=== PATIENT | male | born 1960 | race Caucasian/White ===

== ENCOUNTER → 2016-05-25 | Outpatient (REF) | payer BC ==
[2016-05-25 12:48] LABS: PERCENT SATURATION 24.9 % (19.7-37.4)
== END ==
LOC: M LABDRAW1 11:38
PROVIDERS: ATTEND Orthopaedic Surgery
DX: Z01.818 Encounter for other preprocedural examination (principal); M17.12 Unilateral primary osteoarthritis, left knee

== ENCOUNTER → 2016-05-31 | Outpatient (REF) | payer BC ==
[2016-05-31 11:55] LABS: BASO % 0.9 % (0.0-1.0); EOS # 0.2 K/mm3 (0.0-0.50); EOS % 3.1 % (0.0-3.0); LARGE UNSTAINED CELL # 0.2 K/mm3 (0.0-0.4); LARGE UNSTAINED CELL % 2.7 % (0.0-4.0); LYMPH # 2.5 K/mm3 (1.5-4.5); LYMPH % 39.3 % (24.0-44.0); MEAN CORPUSCULAR HEMOGLOBIN 29.5 pg (27.0-33.0); MEAN CORPUSCULAR VOLUME 89.3 fl (80.0-96.0); MONO # 0.4 K/mm3 (0.0-0.8); MONO % 6.4 % (0.0-5.0); NEUTROPHILS % 47.6 % (36.0-66.0); PLATELET COUNT, AUTOMATED 287 k/mm3 (150-450); RED CELL DISTRIBUTION WIDTH 12.8 % (11.5-14.5); WHITE BLOOD COUNT 6.2 K/mm3 (4.0-10.0)
[2016-05-31 12:02] LABS: INR 0.87
[2016-05-31 12:11] LABS: ALBUMIN 3.7 GM/DL (3.2-5.2); ALBUMIN/GLOBULIN RATIO 1.42 (1.00-1.93); ALKALINE PHOSPHATASE 79 U/L (45-117); ALT/SGPT 23 U/L (12-78); ANION GAP 8 MEQ/L (8-16); AST/SGOT 12 U/L (15-37); BILIRUBIN,TOTAL 0.3 MG/DL (0.2-1.0); BLOOD UREA NITROGEN 10 MG/DL (7-18); CALCIUM LEVEL 8.7 MG/DL (8.5-10.1); CARBON DIOXIDE LEVEL 27 MEQ/L (21-32); CHLORIDE LEVEL 106 MEQ/L (98-107); GLOMERULAR FILTRATION RATE > 60.0 (>56); GLUCOSE, FASTING 91 MG/DL (70-105); POTASSIUM SERUM 4.1 MEQ/L (3.5-5.1); SODIUM LEVEL 141 MEQ/L (136-145); TOTAL PROTEIN 6.3 GM/DL (6.4-8.2)
== END ==
LOC: M LABDRAW1 11:37
PROVIDERS: ATTEND Family Medicine
DX: Z01.818 Encounter for other preprocedural examination (principal); M25.562 Pain in left knee

== ENCOUNTER 2017-01-18 12:05 | Outpatient (CLI) | payer BC ==
[~2017-01-18] VITALS: Ht 177.8 cm; Wt 85.5 kg
[~2017-01-18 12:05] MED LIST: PARO20TA4 PO
[2017-01-18] MEDS ORDERED: NS 1,000 ML IV ONE (12:15)
[2017-01-18] MEDS ORDERED: PROPOFOL 200 MG/20 ML VIAL As Ordered ONE (13:28)
[2017-01-18] MEDS ORDERED: LIDOCAINE 2% INJ 100 MG/5 ML SDV (FOR ANES.) As Ordered ONE (13:28)
--- NOTE | 2017-01-18 13:48 | ROOR ---
Patient Name: Cristino Duke Procedure Date: 01/18/2017 1:19 PM Date of : 1960 Age: 56 Room: [facility] Gender: Male Note Status: Finalized Procedure: Total Colonoscopy to Cecum + Biopsy Polypectomy + Carbon Spot Marking Indications: High risk colon cancer surveillance: Personal history of colonic polyps, Last colonoscopy: 2011 Providers: Sunil Chatman MD Referring MD: Katelin Mckeon MD Requesting Provider: Medicines: Monitored Anesthesia Care Complications: No immediate complications. Procedure: Pre-Anesthesia Assessment: - The heart rate, respiratory rate, oxygen saturations, blood pressure, adequacy of pulmonary ventilation, and response to care were monitored throughout the procedure. The Colonoscope was introduced through the anus and advanced to the cecum, identified by appendiceal orifice and ileocecal valve. The colonoscopy was performed without difficulty. The patient tolerated the procedure well. The quality of the bowel preparation was excellent. Findings: The perianal and digital rectal examinations were normal. Non-bleeding internal hemorrhoids were found during retroflexion. The hemorrhoids were small and Grade I (internal hemorrhoids that do not prolapse). Multiple small and large-mouthed diverticula were found in the recto-sigmoid colon, sigmoid colon and descending colon. A medium polyp was found at 70 cm proximal to the anus. The polyp was sessile. The polyp was removed with a jumbo cold forceps. Resection and retrieval were complete. Area was successfully injected with Spot (carbon black) for tattooing. The exam was otherwise without abnormality on direct and retroflexion views. Impression: - Non-bleeding internal hemorrhoids. - Diverticulosis in the recto-sigmoid colon, in the sigmoid colon and in the descending colon. - One medium polyp at 70 cm proximal to the anus, removed with a jumbo cold forceps. Resected and retrieved. Injected. - The examination was otherwise normal on direct and retroflexion views. - The exam was otherwise normal to the cecum. Recommendation: - Patient has a contact number available for emergencies. The signs and symptoms of potential delayed complications were discussed with the patient. Return to normal activities tomorrow. Written discharge instructions were provided to the patient. - High fiber diet. - Discharge patient to home. - Continue present medications. - Await pathology results. - Telephone GI clinic for pathology results in 1 week. - Repeat colonoscopy for surveillance based on pathology results. - Return to referring physician. - The findings and recommendations were discussed with the patient's family. Sunil Chatman MD Sunil Chatman MD 01/18/2017 1:48:08 PM This report has been signed electronically. Number of Addenda: 0 Note Initiated On: 01/18/2017 1:19 PM Estimated Blood Loss: Estimated blood loss: none.
[2017-01-18 14:10] VITALS: BP 137/86
== END 2017-01-18 14:20 | disposition home or self-care (01) ==
LOC: M OPP 12:05
PROVIDERS: ATTEND Internal Medicine Gastroenterology
DX: Z12.11 Encounter for screening for malignant neoplasm of colon (principal); Z86.010 Personal history of colon polyps; D12.4 Benign neoplasm of descending colon; K64.0 First degree hemorrhoids; K57.30 Diverticulosis of large intestine without perforation or abscess without bleeding; M19.90 Unspecified osteoarthritis, unspecified site; F32.9 Major depressive disorder, single episode, unspecified; R06.83 Snoring; Z96.652 Presence of left artificial knee joint; F12.20 Cannabis dependence, uncomplicated; Z79.899 Other long term (current) drug therapy

== ENCOUNTER → 2017-07-24 | Outpatient (REF) | payer BC ==
[2017-07-24 13:26] LABS: BASO # 0.1 10^3/uL (0.0-0.2); BASO % 0.9 % (0.0-1.0); EOS # 0.2 10^3/uL (0.0-0.50); EOS % 2.9 % (0.0-3.0); HEMATOCRIT 41.9 % (42.0-52.0); HEMOGLOBIN 13.6 g/dl (14.0-18.0); IMMATURE GRANULOCYTE % 0.6 % (0-3.0); LYMPH # 2.5 10^3/uL (1.5-4.5); LYMPH % 36.3 % (24.0-44.0); MEAN CORPUSCULAR HGB CONC 32.5 g/dl (32.0-36.5); MEAN CORPUSCULAR VOLUME 89.3 fl (80.0-96.0); MONO # 0.6 10^3/uL (0.0-0.8); MONO % 8.6 % (0.0-5.0); NEUTROPHILS # 3.5 10^3/uL (1.8-7.7); NEUTROPHILS % 50.7 % (36.0-66.0); PLATELET COUNT, AUTOMATED 305 10^3/uL (150-450); RED BLOOD COUNT 4.69 10^6/uL (4.30-6.10); RED CELL DISTRIBUTION WIDTH 13.9 % (11.5-14.5); WHITE BLOOD COUNT 6.8 10^3/uL (4.0-10.0)
[2017-07-24 13:35] LABS: ALBUMIN 3.7 GM/DL (3.2-5.2); ALBUMIN/GLOBULIN RATIO 1.32 (1.00-1.93); ALKALINE PHOSPHATASE 82 U/L (45-117); ALT/SGPT 34 U/L (12-78); ANION GAP 6 MEQ/L (8-16); AST/SGOT 23 U/L (7-37); BILIRUBIN,TOTAL 0.2 MG/DL (0.2-1.0); BLOOD UREA NITROGEN 13 MG/DL (7-18); CALCIUM LEVEL 8.5 MG/DL (8.5-10.1); CARBON DIOXIDE LEVEL 29 MEQ/L (21-32); CHLORIDE LEVEL 107 MEQ/L (98-107); CHOLESTEROL LEVEL 199 MG/DL (<200); CHOLESTEROL RISK RATIO 3.491 (<5); CREATININE FOR GFR 0.72 MG/DL (0.70-1.30); GLOMERULAR FILTRATION RATE > 60.0 (>56); GLUCOSE, FASTING 89 MG/DL (70-100); HDL CHOLESTEROL 57 MG/DL (>40); NON-HDL-C 142 MG/DL; POTASSIUM SERUM 4.7 MEQ/L (3.5-5.1); SODIUM LEVEL 142 MEQ/L (136-145); TOTAL PROTEIN 6.5 GM/DL (6.4-8.2); TRIGLYCERIDES LEVEL 105 MG/DL (<150)
== END ==
LOC: M LABDRAW1 08:09
DX: E78.2 Mixed hyperlipidemia (principal)
CPT/HCPCS: 80053

== ENCOUNTER 2018-05-28 10:28 | Day surgery (SDC) | payer BC ==
[~2018-05-28] VITALS: Ht 177.8 cm; Wt 88.8 kg
[2018-05-28] MEDS ORDERED: NS 1,000 ML IV ONE (10:45)
[2018-05-28] MEDS ORDERED: LIDOCAINE 2% INJ 100 MG/5 ML SDV (FOR ANES.) As Ordered ONE (11:07)
[2018-05-28] MEDS ORDERED: PROPOFOL 200 MG/20 ML VIAL As Ordered ONE ×3 (11:49→12:29)
--- NOTE | 2018-05-28 12:48 | ROOR ---
Patient Name: Cristino Duke Procedure Date: 05/28/2018 12:02 PM Date of : 1960 Age: 57 Room: [facility] Gender: Male Note Status: Finalized Procedure: Total Colonoscopy + Hot Snare Polypectomy + Biopsy Polypectomy Indications: High risk colon cancer surveillance: Personal history of colonic polyps Providers: Sunil Chatman MD Referring MD: Katelin Mckeon MD Requesting Provider: Medicines: Monitored Anesthesia Care Complications: No immediate complications. Procedure: Pre-Anesthesia Assessment: - The heart rate, respiratory rate, oxygen saturations, blood pressure, adequacy of pulmonary ventilation, and response to care were monitored throughout the procedure. The Colonoscope was introduced through the anus and advanced to the cecum, identified by appendiceal orifice and ileocecal valve. The colonoscopy was performed without difficulty. The patient tolerated the procedure well. The quality of the bowel preparation was excellent. Findings: The perianal and digital rectal examinations were normal. Non-bleeding internal hemorrhoids were found during retroflexion. The hemorrhoids were small and Grade I (internal hemorrhoids that do not prolapse). A small polyp was found in the anus. The polyp was pedunculated. The polyp was removed with a hot snare. Resection and retrieval were complete. A large polyp was found at 70 cm proximal to the anus. The polyp was sessile. The polyp was removed with a jumbo cold forceps. Resection and retrieval were complete. The exam was otherwise without abnormality on direct and retroflexion views. Impression: - Non-bleeding internal hemorrhoids. - One small polyp at the anus, removed with a hot snare. Resected and retrieved. - One large polyp at 70 cm proximal to the anus, removed with a jumbo cold forceps. Resected and retrieved. - The examination was otherwise normal on direct and retroflexion views. - The exam was otherwise normal to the cecum. Recommendation: - Patient has a contact number available for emergencies. The signs and symptoms of potential delayed complications were discussed with the patient. Return to normal activities tomorrow. Written discharge instructions were provided to the patient. - High fiber diet. - Discharge patient to home. - Continue present medications. - Await pathology results. - Telephone GI clinic for pathology results in 1 week. - Repeat colonoscopy for surveillance based on pathology results. - Return to referring physician. - The findings and recommendations were discussed with the patient's family. Sunil Chatman MD Sunil Chatman MD 05/28/2018 12:48:07 PM This report has been signed electronically. Number of Addenda: 0 Note Initiated On: 05/28/2018 12:02 PM Estimated Blood Loss: Estimated blood loss: none.
[2018-05-28 13:05] VITALS: BP 147/79
[2018-05-28] MEDS ORDERED: ESMOLOL INJ 100MG/10ML VIAL As Ordered ONE (13:25)
== END 2018-05-28 13:16 | disposition home or self-care (01) ==
LOC: M OPP 10:28
PROVIDERS: ATTEND Internal Medicine Gastroenterology
DX: Z09 Encounter for follow-up examination after completed treatment for conditions other than malignant neoplasm (principal); Z86.010 Personal history of colon polyps; K64.0 First degree hemorrhoids; K62.0 Anal polyp

== ENCOUNTER → 2019-02-21 | Outpatient (REF) | payer BC ==
[2019-02-21 13:38] LABS: BASO # 0.1 10^3/uL (0.0-0.2); BASO % 0.9 % (0.0-1.0); EOS # 0.2 10^3/uL (0.0-0.5); EOS % 2.8 % (0.0-3.0); HEMATOCRIT 42.7 % (42.0-52.0); HEMOGLOBIN 14.1 g/dl (13.5-17.5); LYMPH # 2.1 10^3/uL (1.5-5.0); LYMPH % 33.4 % (24.0-44.0); MEAN CORPUSCULAR HEMOGLOBIN 30.3 pg (27.0-33.0); MEAN CORPUSCULAR VOLUME 91.8 fl (80.0-96.0); MONO # 0.6 10^3/uL (0.0-0.8); MONO % 9.2 % (0.0-5.0); NEUTROPHILS # 3.4 10^3/uL (1.5-8.5); NEUTROPHILS % 53.2 % (36.0-66.0); PLATELET COUNT, AUTOMATED 290 10^3/uL (150-450); RED BLOOD COUNT 4.65 10^6/uL (4.30-6.10); WHITE BLOOD COUNT 6.4 10^3/uL (4.0-10.0)
[2019-02-21 13:41] LABS: ALBUMIN 3.7 GM/DL (3.2-5.2); ALT/SGPT 30 U/L (12-78); BILIRUBIN,TOTAL 0.4 MG/DL (0.2-1.0); BLOOD UREA NITROGEN 10 MG/DL (7-18); CALCIUM LEVEL 8.6 MG/DL (8.8-10.2); CARBON DIOXIDE LEVEL 26 MEQ/L (21-32); CHLORIDE LEVEL 106 MEQ/L (98-107); CHOLESTEROL LEVEL 170 MG/DL (<200); CHOLESTEROL RISK RATIO 3.207 (<5); CREATININE FOR GFR 0.73 MG/DL (0.70-1.30); GLOMERULAR FILTRATION RATE > 60.0 (>49); GLUCOSE, FASTING 90 MG/DL (70-100); HDL CHOLESTEROL 53 MG/DL (>40); LDL CHOLESTEROL 91 MG/DL (<100); NON-HDL-C 117 MG/DL; POTASSIUM SERUM 4.6 MEQ/L (3.5-5.1); SODIUM LEVEL 137 MEQ/L (136-145); TOTAL PROTEIN 6.4 GM/DL (6.4-8.2); TRIGLYCERIDES LEVEL 130 MG/DL (<150)
== END ==
LOC: M LABDRAW1 12:56
PROVIDERS: ATTEND Family Medicine
DX: Z00.00 Encounter for general adult medical examination without abnormal findings (principal)

== ENCOUNTER → 2020-11-09 | Outpatient (CLI) | payer BC ==
--- NOTE | 2020-11-09 15:58 | REP ---
INDICATION: PAIN COMPARISON: None. TECHNIQUE: Internal rotation, external rotation, and Y view. FINDINGS: Mild degenerative changes at the acromioclavicular joint with cortical irregularity and very small amount of chondrocalcinosis. The subacromial space is normal. The humeral head is normal. Subtle sclerotic changes and possible small broad-based osteophyte forming along the inferior margin of the glenoid suggested. No acute fracture or dislocation. IMPRESSION: Mild degenerative changes suggested. <Electronically signed by Julio Diaz > 11/09/20 [id number]
--- NOTE | 2020-11-09 16:05 | REP ---
INDICATION: PAIN COMPARISON: None. TECHNIQUE: AP, lateral, flexion/extension, bilateral oblique, and open-mouth views. FINDINGS: Alignment and lordosis is maintained. There is no evidence for acute fracture / compression injury or subluxation. Endplate sclerosis with disc space narrowing and marginal osteophyte formation at C5-6 and to a lesser extent C4-5. Remainder of the examination is essentially age-appropriate. IMPRESSION: Moderate focal degenerative changes at C5-6 and C4-5. <Electronically signed by Julio Diaz > 11/09/20 [id number]
== END ==
LOC: M WUC 15:27
PROVIDERS: ATTEND Physician Assistant
DX: M54.12 Radiculopathy, cervical region (principal); M25.512 Pain in left shoulder; M50.322 Other cervical disc degeneration at C5-C6 level; M50.321 Other cervical disc degeneration at C4-C5 level

== ENCOUNTER → 2021-02-09 | Outpatient (CLI) | payer BC ==
[2021-02-09 17:59] LABS: APPEARANCE, URINE CLEAR (CLEAR); BACTERIA, URINE AUTO NEGATIVE (NEGATIVE); BILIRUBIN, URINE AUTO NEGATIVE (NEGATIVE); BLOOD, URINE BLOOD 1+ (NEGATIVE); COLOR, URINE YELLOW (YELLOW); GLUCOSE, URINE (UA) AUTO NEGATIVE (NEGATIVE); KETONE, URINE AUTO NEGATIVE (NEGATIVE); LEUKOCYTE ESTERASE, URINE AUTO NEGATIVE (NEGATIVE); MUCUS, URINE SMALL (NEGATIVE); NITRITE, URINE AUTO NEGATIVE (NEGATIVE); PROTEIN, URINE AUTO NEGATIVE (NEGATIVE); RBC, URINE AUTO 0 /HPF (0-3); SPECIFIC GRAVITY URINE AUTO 1.023 (1.002-1.035); SQUAMOUS EPITHELIAL CELL UR AU 0 /HPF (0-6); UROBILINOGEN, URINE AUTO 0.2 mg/dL (0.0-2.0); WBC, URINE AUTO 0 /HPF (0-3)
[2021-02-09 18:11] LABS: BASO # 0.1 10^3/uL (0.0-0.2); BASO % 0.5 % (0.0-1.0); EOS # 0.1 10^3/uL (0.0-0.5); EOS % 1.4 % (0.0-3.0); HEMATOCRIT 39.8 % (42.0-52.0); HEMOGLOBIN 13.2 g/dl (13.5-17.5); LYMPH # 3.3 10^3/uL (1.5-5.0); MEAN CORPUSCULAR HEMOGLOBIN 29.7 pg (27.0-33.0); MEAN CORPUSCULAR HGB CONC 33.2 g/dl (32.0-36.5); MEAN CORPUSCULAR VOLUME 89.6 fl (80.0-96.0); MONO # 0.9 10^3/uL (0.0-0.8); MONO % 8.7 % (2.0-8.0); NEUTROPHILS # 5.4 10^3/uL (1.5-8.5); NEUTROPHILS % 55.1 % (36.0-66.0); PLATELET COUNT, AUTOMATED 359 10^3/uL (150-450); RED BLOOD COUNT 4.44 10^6/uL (4.30-6.10); WHITE BLOOD COUNT 9.8 10^3/uL (4.0-10.0)
[2021-02-09 20:11] LABS: ALBUMIN 3.9 GM/DL (3.2-5.2); ALT/SGPT 20 U/L (12-78); BILIRUBIN,TOTAL 0.3 MG/DL (0.2-1.0); BLOOD UREA NITROGEN 12 MG/DL (7-18); CALCIUM LEVEL 9.8 MG/DL (8.8-10.2); CARBON DIOXIDE LEVEL 29 MEQ/L (21-32); CHLORIDE LEVEL 106 MEQ/L (98-107); CREATININE FOR GFR 0.79 MG/DL (0.70-1.30); GLOMERULAR FILTRATION RATE > 60.0 (>49); GLUCOSE, FASTING 82 MG/DL (70-100); POTASSIUM SERUM 4.2 MEQ/L (3.5-5.1); SODIUM LEVEL 139 MEQ/L (136-145); TOTAL PROTEIN 6.8 GM/DL (6.4-8.2)
== END ==
LOC: M PLALAB 14:21
DX: Z78.9 Other specified health status (principal)

== ENCOUNTER → 2021-06-03 | Outpatient (REF) | payer BC ==
[2021-06-03 18:11] LABS: SOURCE, BODY FLUID LFT ELBOW; SYNOVIAL FLUID COLOR RED (COLORLESS)
[2021-06-03 18:12] LABS: SOURCE, BODY FLUID GLUCOSE LFT ELBOW
[2021-06-03 18:21] LABS: CRYSTALS, BODY FLUID NONE SEEN (NONE SEEN); SOURCE, BODY FLUID CRYSTALS LFT ELBOW
== END ==
LOC: M LAB REF 17:06
PROVIDERS: ATTEND Physician Assistant
DX: M25.522 Pain in left elbow (principal)

== ENCOUNTER → 2021-06-18 | Outpatient (CLI) | payer BC ==
[2021-06-18 13:49] LABS: BLOOD UREA NITROGEN 12 MG/DL (7-18); CREATININE FOR GFR 0.73 MG/DL (0.70-1.30); GLOMERULAR FILTRATION RATE > 60.0 (>49)
== END ==
LOC: M PLALAB 11:00
PROVIDERS: ATTEND Student in an Organized Health Care Education/Training Program
DX: I77.74 Dissection of vertebral artery (principal); I63.411 Cerebral infarction due to embolism of right middle cerebral artery; I63.89 Other cerebral infarction

== ENCOUNTER 2021-06-21 19:27 | Inpatient (IN) | payer BC ==
[~2021-06-21] VITALS: Ht 172.7 cm; Wt 82.4 kg
[2021-06-21] MEDS ORDERED: ETOMIDATE INJ 20MG/10ML VIAL IV ONE (19:50)
[2021-06-21] MEDS ORDERED: ROCURONIUM BROMIDE 50 MG/5 ML VIAL IV ONE (19:50)
[2021-06-21 19:59] LABS: HEMATOCRIT 46.3 % (42.0-52.0); HEMOGLOBIN 14.3 g/dl (13.5-17.5); MEAN CORPUSCULAR HEMOGLOBIN 29.5 pg (27.0-33.0); MEAN CORPUSCULAR HGB CONC 30.9 g/dl (32.0-36.5); MEAN CORPUSCULAR VOLUME 95.5 fl (80.0-96.0); PLATELET COUNT, AUTOMATED 434 10^3/uL (150-450); RED BLOOD COUNT 4.85 10^6/uL (4.30-6.10)
[2021-06-21] MEDS ORDERED: levETIRAcetam INJection 1,000 MG in D5W 100 ML IV ONE (20:00)
[2021-06-21] MEDS ORDERED: levETIRAcetam 500 MG/5 ML VIAL (KEPPRA IV)(J1953) As Ordered ONE (20:00)
[2021-06-21] MEDS ORDERED: NS 1,000 ML IV SCH (20:00)
[2021-06-21] MEDS ORDERED: cefTRIAXone SOD 2 GM in D5W MINI-BAG PLUS 50 ML IV ONE (20:00)
[2021-06-21] MEDS ORDERED: propofoL 1,000 MG in IV 1 EA IV SCH (20:00)
[2021-06-21 20:01] LABS: WHITE BLOOD COUNT 30.7 10^3/uL (4.0-10.0)
[2021-06-21 20:22] LABS: ABG BASE EXCESS -12.7 (-2.0-2.0); ABG HCO3 16.1 MEQ/L (22.0-26.0); ABG O2 SATURATION 99.4 % (95.0-99.0); ABG PARTIAL PRESSURE CO2 47.8 mmHg (35.0-45.0); ABG PARTIAL PRESSURE O2 293.7 mmHg (75.0-100.0); ABG STANDARD HCO3 14.8 MEQ/L (22.0-26.0); ABG TOTAL CO2 17.6 MEQ/L (23.0-31.0)
[2021-06-21 20:24] LABS: ABG pH (ARTERIAL) 7.146 UNITS (7.350-7.450)
[2021-06-21 20:26] LABS: CK-MB VALUE MASS 1.8 NG/ML (<3.6); MB/CK RELATIVE INDEX 1.38 (< OR =4)
[2021-06-21 20:34] LABS: OSMOLALITY SERUM 306 MOSM/KG (280-301)
[2021-06-21 20:35] LABS: ACETAMINOPHEN LEVEL < 2.0 UG/ML (10.0-30.0); ALBUMIN 4.2 GM/DL (3.2-5.2); ALT/SGPT 17 U/L (12-78); BILIRUBIN,DIRECT < 0.1 MG/DL (0.0-0.2); BILIRUBIN,TOTAL 0.2 MG/DL (0.2-1.0); BLOOD UREA NITROGEN 22 MG/DL (7-18); CALCIUM LEVEL 9.1 MG/DL (8.8-10.2); CARBON DIOXIDE LEVEL 16 MEQ/L (21-32); CHLORIDE LEVEL 101 MEQ/L (98-107); CREATININE FOR GFR 1.51 MG/DL (0.70-1.30); ETHYL ALCOHOL (ETHANOL) < 0.003 % (0.000-0.010); GLOMERULAR FILTRATION RATE 50.1 (>49); GLUCOSE, FASTING 207 MG/DL (70-100); POTASSIUM SERUM 3.9 MEQ/L (3.5-5.1); SALICYLATE LEVEL 3.6 MG/DL (5.0-30.0); SODIUM LEVEL 139 MEQ/L (136-145); TOTAL PROTEIN 7.6 GM/DL (6.4-8.2)
[2021-06-21 20:48] LABS: ATYPICAL LYMPH 2 % (0-5); BASOPHILS 1 % (0-1); EOSINOPHILS 2 % (0-3); LYMPHOCYTES 35 % (16-44); METAMYELOCYTES 2 % (0-0); MONOCYTES 10 % (0-5); NEUTROPHILS 47 % (28-66)
[2021-06-21 20:49] LABS: PLATELET CLUMPS SMALL AMT
[2021-06-21 20:50] LABS: HYPOCHROMASIA 1+
[2021-06-21 20:51] LABS: PLATELET ESTIMATE INCREASED (NORMAL)
[2021-06-21] MEDS ORDERED: NS 1,400 ML in IV 1 EA IV ONE (20:55)
[2021-06-21] MEDS ORDERED: ISOVUE-370 76% 100ML VIAL As Ordered ONE (21:23)
[2021-06-21 21:37] LABS: AMPHETAMINES LEVEL URINE NEGATIVE (NEGATIVE); BARBITURATES URINE NEGATIVE (NEGATIVE); BENZODIAZEPINES URINE POSITIVE (NEGATIVE); CANNABINOIDS URINE POSITIVE (NEGATIVE); COCAINE METABOLITE URINE NEGATIVE (NEGATIVE); METHADONE URINE NEGATIVE (NEGATIVE); OPIATES URINE NEGATIVE (NEGATIVE); PHENCYCLIDINE URINE NEGATIVE (NEGATIVE)
[2021-06-21] MEDS ORDERED: NS 1,000 ML IV ONE (22:05)
[2021-06-21] MEDS: propofoL 1,000 MG in IV 1 EA IV SCH (22:10)
[2021-06-21 22:21] LABS: ABG BASE EXCESS -2.5 (-2.0-2.0); ABG HCO3 24.6 MEQ/L (22.0-26.0); ABG O2 SATURATION 99.4 % (95.0-99.0); ABG PARTIAL PRESSURE CO2 52.5 mmHg (35.0-45.0); ABG PARTIAL PRESSURE O2 310.8 mmHg (75.0-100.0); ABG STANDARD HCO3 22.4 MEQ/L (22.0-26.0); ABG TOTAL CO2 26.2 MEQ/L (23.0-31.0); ABG pH (ARTERIAL) 7.289 UNITS (7.350-7.450)
[2021-06-21] MEDS: MIDAZOLAM INJ 2MG/2ML VIAL (J2250 PER 1MG) IV PRN ×3 (22:28→23:18)
[2021-06-21] MEDS ORDERED: LORazepam 2 MG/ML VIAL IV PRN (23:35)
[2021-06-21] MEDS ORDERED: DEXTROSE 50% 50 ML SYRINGE IV STA (23:57)
[2021-06-22] VITALS (28 sets, daily range): BP systolic 116–158; BP diastolic 62–92
[2021-06-22] MEDS: KCL 20MEQ IN D5/0.45NS 1000ML 1,000 ML IV SCH ×5 (00:19→22:00)
[2021-06-22] MEDS: PIPERACILLIN/TAZOBACTAM SOD 3.375 GM in D5W MINI-BAG PLUS 50 ML IV SCH ×4 (00:42→18:09)
[2021-06-22] MEDS: propofoL 1,000 MG in IV 1 EA IV SCH ×9 (01:12→22:29)
[2021-06-22] MEDS: IPRATROPIUM 0.5MG/ALBUTEROL 2.5MG INH SOL UD 3ML (DUONEB) NEB SCH ×6 (04:32→20:34)
[2021-06-22 05:20] LABS: ABG BASE EXCESS -1.2 (-2.0-2.0); ABG HCO3 24.5 MEQ/L (22.0-26.0); ABG O2 SATURATION 98.9 % (95.0-99.0); ABG PARTIAL PRESSURE CO2 44.8 mmHg (35.0-45.0); ABG PARTIAL PRESSURE O2 156.2 mmHg (75.0-100.0); ABG STANDARD HCO3 23.5 MEQ/L (22.0-26.0); ABG TOTAL CO2 25.9 MEQ/L (23.0-31.0); ABG pH (ARTERIAL) 7.356 UNITS (7.350-7.450)
[2021-06-22] MEDS: HEPARIN SOD (PORCINE) 5000UNITS/ML 1ML VIAL/SYRINGE SC SCH ×3 (06:18→21:59)
[2021-06-22 06:36] LABS: BASO # 0.1 10^3/uL (0.0-0.2); BASO % 0.3 % (0.0-1.0); EOS % 0.2 % (0.0-3.0); HEMATOCRIT 40.7 % (42.0-52.0); HEMOGLOBIN 13.1 g/dl (13.5-17.5); LYMPH # 2.4 10^3/uL (1.5-5.0); MEAN CORPUSCULAR HEMOGLOBIN 29.2 pg (27.0-33.0); MEAN CORPUSCULAR HGB CONC 32.2 g/dl (32.0-36.5); MEAN CORPUSCULAR VOLUME 90.8 fl (80.0-96.0); NEUTROPHILS % 74.2 % (36.0-66.0); PLATELET COUNT, AUTOMATED 332 10^3/uL (150-450); RED BLOOD COUNT 4.48 10^6/uL (4.30-6.10); WHITE BLOOD COUNT 20.2 10^3/uL (4.0-10.0)
[2021-06-22 06:42] LABS: MONO # 2.4 10^3/uL (0.0-0.8)
[2021-06-22] MEDS ORDERED: AMLO1TAB24 PO (06:47)
[2021-06-22] MEDS ORDERED: BACL10TA2 PO (06:47)
[2021-06-22] MEDS ORDERED: METH4TAB8 PO (06:47)
[2021-06-22] MEDS ORDERED: CLOP75TA2 PO (06:47)
[2021-06-22] MEDS ORDERED: ASPI-263 PO (06:47)
[2021-06-22] MEDS ORDERED: ATOR40TA75 PO (06:47)
[2021-06-22] MEDS ORDERED: TELM1TAB33 PO (06:47)
[2021-06-22] MEDS ORDERED: HOME MED LIST COMPLETE! XX SCH (06:50)
[2021-06-22 07:05] LABS: ALBUMIN 3.3 GM/DL (3.2-5.2); ALT/SGPT 15 U/L (12-78); BILIRUBIN,TOTAL 0.3 MG/DL (0.2-1.0); BLOOD UREA NITROGEN 18 MG/DL (7-18); CALCIUM LEVEL 8.3 MG/DL (8.8-10.2); CARBON DIOXIDE LEVEL 27 MEQ/L (21-32); CHLORIDE LEVEL 105 MEQ/L (98-107); CHOLESTEROL LEVEL 145 MG/DL (< 200); CPK CREATINE PHOSPHOKINASE 200 U/L (39-308); CREATININE FOR GFR 1.05 MG/DL (0.70-1.30); GLOMERULAR FILTRATION RATE > 60.0 (>49); GLUCOSE, FASTING 135 MG/DL (70-100); LDH LACTATE DEHYDROGENASE 315 U/L (87-241); PHOSPHORUS LEVEL 5.3 MG/DL (2.5-4.9); POTASSIUM SERUM 3.6 MEQ/L (3.5-5.1); SODIUM LEVEL 139 MEQ/L (136-145); TOTAL PROTEIN 6.2 GM/DL (6.4-8.2); TRIGLYCERIDES LEVEL 91 MG/DL (<150)
[2021-06-22] MEDS: CHLORHEXIDINE GLUCONATE 0.12 % 15ML UDC (PERIDEX ORAL RINSE) MT SCH ×2 (07:52→20:31)
[2021-06-22] MEDS: PANTOPRAZOLE 40MG VIAL (C9113 PER 1) IV SCH (07:53)
[2021-06-22] MEDS ORDERED: levETIRAcetam INJection 500 MG in D5W MINI-BAG PLUS 100 ML IV SCH (08:00)
[2021-06-22] MEDS ORDERED: levETIRAcetam INJection 500 MG in D5W MINI-BAG PLUS 100 ML IV ONE (09:25)
[2021-06-22] MEDS: MIDAZOLAM INJ 2MG/2ML VIAL (J2250 PER 1MG) IV PRN ×2 (14:39)
[2021-06-22] MEDS: levETIRAcetam INJection 1,000 MG in D5W 100 ML IV SCH (20:42)
[2021-06-22] MEDS: MORPHINE 4 MG/ML 1ML VIAL/SYRINGE (J2270) IV PRN (22:24)
[2021-06-23] VITALS (21 sets, daily range): BP systolic 104–147; BP diastolic 64–87
[2021-06-23] MEDS: PIPERACILLIN/TAZOBACTAM SOD 3.375 GM in D5W MINI-BAG PLUS 50 ML IV SCH ×4 (00:05→18:29)
[2021-06-23] MEDS: MIDAZOLAM INJ 2MG/2ML VIAL (J2250 PER 1MG) IV PRN ×6 (00:05→19:32)
[2021-06-23] MEDS: IPRATROPIUM 0.5MG/ALBUTEROL 2.5MG INH SOL UD 3ML (DUONEB) NEB SCH ×6 (00:34→19:06)
[2021-06-23] MEDS: propofoL 1,000 MG in IV 1 EA IV SCH ×9 (01:01→23:06)
[2021-06-23] MEDS: MORPHINE 4 MG/ML 1ML VIAL/SYRINGE (J2270) IV PRN ×2 (03:03→19:44)
[2021-06-23 04:43] LABS: BASO # 0.1 10^3/uL (0.0-0.2); BASO % 0.4 % (0.0-1.0); EOS % 0.3 % (0.0-3.0); HEMOGLOBIN 12.6 g/dl (13.5-17.5); LYMPH # 2.3 10^3/uL (1.5-5.0); MEAN CORPUSCULAR HEMOGLOBIN 29.2 pg (27.0-33.0); MEAN CORPUSCULAR HGB CONC 32.3 g/dl (32.0-36.5); MEAN CORPUSCULAR VOLUME 90.3 fl (80.0-96.0); MONO % 12.7 % (2.0-8.0); NEUTROPHILS # 9.3 10^3/uL (1.5-8.5); NEUTROPHILS % 68.9 % (36.0-66.0); PLATELET COUNT, AUTOMATED 298 10^3/uL (150-450); RED BLOOD COUNT 4.32 10^6/uL (4.30-6.10); WHITE BLOOD COUNT 13.5 10^3/uL (4.0-10.0)
[2021-06-23 05:12] LABS: MONO # 1.7 10^3/uL (0.0-0.8)
[2021-06-23 05:15] LABS: ALBUMIN 2.9 GM/DL (3.2-5.2); ALT/SGPT 19 U/L (12-78); BILIRUBIN,TOTAL 0.3 MG/DL (0.2-1.0); BLOOD UREA NITROGEN 7 MG/DL (7-18); CALCIUM LEVEL 8.2 MG/DL (8.8-10.2); CARBON DIOXIDE LEVEL 26 MEQ/L (21-32); CHLORIDE LEVEL 108 MEQ/L (98-107); CHOLESTEROL LEVEL 144 MG/DL (< 200); CPK CREATINE PHOSPHOKINASE 111 U/L (39-308); CREATININE FOR GFR 0.79 MG/DL (0.70-1.30); GLOMERULAR FILTRATION RATE > 60.0 (>49); GLUCOSE, FASTING 165 MG/DL (70-100); LDH LACTATE DEHYDROGENASE 284 U/L (87-241); PHOSPHORUS LEVEL 3.3 MG/DL (2.5-4.9); POTASSIUM SERUM 3.7 MEQ/L (3.5-5.1); SODIUM LEVEL 140 MEQ/L (136-145); TOTAL PROTEIN 5.9 GM/DL (6.4-8.2); TRIGLYCERIDES LEVEL 124 MG/DL (<150)
[2021-06-23] MEDS: HEPARIN SOD (PORCINE) 5000UNITS/ML 1ML VIAL/SYRINGE SC SCH ×3 (05:38→22:17)
[2021-06-23] MEDS: KCL 20MEQ IN D5/0.45NS 1000ML 1,000 ML IV SCH ×3 (05:39→20:50)
[2021-06-23 05:53] LABS: ABG O2 SATURATION 98.1 % (95.0-99.0); ABG PARTIAL PRESSURE CO2 42.7 mmHg (35.0-45.0); ABG PARTIAL PRESSURE O2 103.4 mmHg (75.0-100.0); ABG STANDARD HCO3 25.4 MEQ/L (22.0-26.0); ABG TOTAL CO2 27.3 MEQ/L (23.0-31.0); ABG pH (ARTERIAL) 7.402 UNITS (7.350-7.450)
[2021-06-23] MEDS: PANTOPRAZOLE 40MG VIAL (C9113 PER 1) IV SCH (08:12)
[2021-06-23] MEDS: CHLORHEXIDINE GLUCONATE 0.12 % 15ML UDC (PERIDEX ORAL RINSE) MT SCH ×2 (08:12→20:02)
[2021-06-23] MEDS ORDERED: NS 500 ML IV ONE (09:00)
[2021-06-23] MEDS: levETIRAcetam INJection 1,000 MG in D5W 100 ML IV SCH ×2 (09:32→20:49)
[2021-06-23 10:17] LABS: ABG BASE EXCESS 0.8 (-2.0-2.0); ABG HCO3 25.3 MEQ/L (22.0-26.0); ABG O2 SATURATION 96.9 % (95.0-99.0); ABG PARTIAL PRESSURE O2 86.8 mmHg (75.0-100.0); ABG STANDARD HCO3 25.2 MEQ/L (22.0-26.0); ABG TOTAL CO2 26.5 MEQ/L (23.0-31.0); ABG pH (ARTERIAL) 7.419 UNITS (7.350-7.450)
[2021-06-24] VITALS (22 sets, daily range): BP systolic 92–145; BP diastolic 59–93
[2021-06-24] MEDS: PIPERACILLIN/TAZOBACTAM SOD 3.375 GM in D5W MINI-BAG PLUS 50 ML IV SCH ×5 (00:10→23:30)
[2021-06-24] MEDS: IPRATROPIUM 0.5MG/ALBUTEROL 2.5MG INH SOL UD 3ML (DUONEB) NEB SCH ×3 (00:27→07:53)
[2021-06-24] MEDS: MIDAZOLAM INJ 2MG/2ML VIAL (J2250 PER 1MG) IV PRN ×2 (00:53→07:37)
[2021-06-24] MEDS: MORPHINE 4 MG/ML 1ML VIAL/SYRINGE (J2270) IV PRN ×2 (01:30→07:45)
[2021-06-24] MEDS: propofoL 1,000 MG in IV 1 EA IV SCH ×3 (01:59→07:27)
[2021-06-24 04:49] LABS: BASO % 0.4 % (0.0-1.0); EOS # 0.1 10^3/uL (0.0-0.5); HEMATOCRIT 35.5 % (42.0-52.0); HEMOGLOBIN 11.3 g/dl (13.5-17.5); LYMPH # 2.4 10^3/uL (1.5-5.0); LYMPH % 21.9 % (24.0-44.0); MEAN CORPUSCULAR HEMOGLOBIN 29.4 pg (27.0-33.0); MEAN CORPUSCULAR HGB CONC 31.8 g/dl (32.0-36.5); MEAN CORPUSCULAR VOLUME 92.2 fl (80.0-96.0); MONO % 9.2 % (2.0-8.0); NEUTROPHILS # 7.3 10^3/uL (1.5-8.5); NEUTROPHILS % 66.9 % (36.0-66.0); PLATELET COUNT, AUTOMATED 270 10^3/uL (150-450); RED BLOOD COUNT 3.85 10^6/uL (4.30-6.10); WHITE BLOOD COUNT 10.9 10^3/uL (4.0-10.0)
[2021-06-24] MEDS: HEPARIN SOD (PORCINE) 5000UNITS/ML 1ML VIAL/SYRINGE SC SCH ×3 (05:02→22:16)
[2021-06-24 05:16] LABS: ALBUMIN 2.6 GM/DL (3.2-5.2); ALT/SGPT 29 U/L (12-78); BILIRUBIN,TOTAL 0.3 MG/DL (0.2-1.0); BLOOD UREA NITROGEN 8 MG/DL (7-18); CARBON DIOXIDE LEVEL 26 MEQ/L (21-32); CHLORIDE LEVEL 108 MEQ/L (98-107); CHOLESTEROL LEVEL 135 MG/DL (< 200); CPK CREATINE PHOSPHOKINASE 84 U/L (39-308); CREATININE FOR GFR 0.67 MG/DL (0.70-1.30); GLOMERULAR FILTRATION RATE > 60.0 (>49); GLUCOSE, FASTING 166 MG/DL (70-100); LDH LACTATE DEHYDROGENASE 219 U/L (87-241); PHOSPHORUS LEVEL 3.4 MG/DL (2.5-4.9); POTASSIUM SERUM 3.9 MEQ/L (3.5-5.1); SODIUM LEVEL 142 MEQ/L (136-145); TOTAL PROTEIN 5.6 GM/DL (6.4-8.2); TRIGLYCERIDES LEVEL 98 MG/DL (<150)
[2021-06-24 05:38] LABS: ABG BASE EXCESS 1.4 (-2.0-2.0); ABG HCO3 25.7 MEQ/L (22.0-26.0); ABG O2 SATURATION 95.7 % (95.0-99.0); ABG PARTIAL PRESSURE CO2 39.4 mmHg (35.0-45.0); ABG STANDARD HCO3 25.7 MEQ/L (22.0-26.0); ABG TOTAL CO2 26.9 MEQ/L (23.0-31.0); ABG pH (ARTERIAL) 7.432 UNITS (7.350-7.450)
[2021-06-24] MEDS: KCL 20MEQ IN D5/0.45NS 1000ML 1,000 ML IV SCH (06:05)
[2021-06-24] MEDS: PANTOPRAZOLE 40MG VIAL (C9113 PER 1) IV SCH (08:48)
[2021-06-24] MEDS: CHLORHEXIDINE GLUCONATE 0.12 % 15ML UDC (PERIDEX ORAL RINSE) MT SCH (08:48)
[2021-06-24] MEDS: levETIRAcetam INJection 1,000 MG in D5W 100 ML IV SCH ×2 (08:49→19:47)
[2021-06-24] MEDS: amLODIPine 5 MG TAB PO SCH (09:00)
[2021-06-24] MEDS ORDERED: MORPHINE 2 MG/ML 1ML VIAL (J2270) IV ONE (10:35)
[2021-06-24] MEDS ORDERED: ACETAMINOPHEN TAB 650MG DOSE (2X325MG) PO PRN (10:40)
[2021-06-24] MEDS ORDERED: BACLOFEN 10 MG TAB PO PRN (17:40)
[2021-06-24] MEDS: ATORVASTATIN 20 MG TAB PO SCH (20:38)
[2021-06-25] VITALS (15 sets, daily range): BP systolic 121–171; BP diastolic 71–96
[2021-06-25] MEDS: KCL 20MEQ IN D5/0.45NS 1000ML 1,000 ML IV SCH (02:59)
[2021-06-25 05:04] LABS: BASO # 0.1 10^3/uL (0.0-0.2); BASO % 0.6 % (0.0-1.0); EOS # 0.2 10^3/uL (0.0-0.5); EOS % 1.7 % (0.0-3.0); HEMATOCRIT 40.5 % (42.0-52.0); HEMOGLOBIN 13.2 g/dl (13.5-17.5); LYMPH # 2.4 10^3/uL (1.5-5.0); LYMPH % 21.5 % (24.0-44.0); MEAN CORPUSCULAR HEMOGLOBIN 29.7 pg (27.0-33.0); MEAN CORPUSCULAR HGB CONC 32.6 g/dl (32.0-36.5); MONO % 9.1 % (2.0-8.0); NEUTROPHILS # 7.5 10^3/uL (1.5-8.5); NEUTROPHILS % 66.5 % (36.0-66.0); PLATELET COUNT, AUTOMATED 277 10^3/uL (150-450); RED BLOOD COUNT 4.45 10^6/uL (4.30-6.10); WHITE BLOOD COUNT 11.3 10^3/uL (4.0-10.0)
[2021-06-25] MEDS: PIPERACILLIN/TAZOBACTAM SOD 3.375 GM in D5W MINI-BAG PLUS 50 ML IV SCH ×3 (05:13→17:42)
[2021-06-25] MEDS: HEPARIN SOD (PORCINE) 5000UNITS/ML 1ML VIAL/SYRINGE SC SCH ×3 (05:13→21:12)
[2021-06-25 05:44] LABS: ALBUMIN 3.1 GM/DL (3.2-5.2); ALT/SGPT 37 U/L (12-78); BILIRUBIN,TOTAL 0.7 MG/DL (0.2-1.0); BLOOD UREA NITROGEN 9 MG/DL (7-18); CALCIUM LEVEL 8.9 MG/DL (8.8-10.2); CARBON DIOXIDE LEVEL 25 MEQ/L (21-32); CHLORIDE LEVEL 106 MEQ/L (98-107); CHOLESTEROL LEVEL 176 MG/DL (< 200); CPK CREATINE PHOSPHOKINASE 1076 U/L (39-308); GLOMERULAR FILTRATION RATE > 60.0 (>49); GLUCOSE, FASTING 104 MG/DL (70-100); LDH LACTATE DEHYDROGENASE 286 U/L (87-241); PHOSPHORUS LEVEL 4.4 MG/DL (2.5-4.9); POTASSIUM SERUM 4.7 MEQ/L (3.5-5.1); SODIUM LEVEL 139 MEQ/L (136-145); TOTAL PROTEIN 6.4 GM/DL (6.4-8.2); TRIGLYCERIDES LEVEL 158 MG/DL (<150)
[2021-06-25] MEDS: levETIRAcetam INJection 1,000 MG in D5W 100 ML IV SCH ×2 (08:51→21:11)
[2021-06-25] MEDS: PANTOPRAZOLE 40MG VIAL (C9113 PER 1) IV SCH (08:51)
[2021-06-25] MEDS: ASPIRIN ENTERIC 325 MG TAB PO SCH ×2 (09:00→14:01)
[2021-06-25] MEDS: CLOPIDOGREL 75 MG TAB PO SCH ×2 (09:00→14:01)
[2021-06-25] MEDS: TELMISARTAN 20 MG TAB PO SCH ×2 (09:00→14:01)
[2021-06-25] MEDS: PARoxetine 20MG TABLET PO SCH ×2 (09:00→14:02)
[2021-06-25] MEDS: LR 1,000 ML IV SCH (10:18)
[2021-06-25] MEDS: amLODIPine 5 MG TAB PO SCH (18:41)
[2021-06-25] MEDS: ATORVASTATIN 20 MG TAB PO SCH (20:04)
[2021-06-26] MEDS: PIPERACILLIN/TAZOBACTAM SOD 3.375 GM in D5W MINI-BAG PLUS 50 ML IV SCH ×5 (00:40→23:47)
[2021-06-26 06:00] VITALS: BP 137/88
[2021-06-26] MEDS: HEPARIN SOD (PORCINE) 5000UNITS/ML 1ML VIAL/SYRINGE SC SCH ×3 (06:08→22:08)
[2021-06-26] MEDS: LR 1,000 ML IV SCH (06:08)
[2021-06-26 06:54] LABS: BASO # 0.1 10^3/uL (0.0-0.2); BASO % 0.5 % (0.0-1.0); EOS # 0.2 10^3/uL (0.0-0.5); EOS % 1.5 % (0.0-3.0); HEMATOCRIT 42.6 % (42.0-52.0); LYMPH # 1.6 10^3/uL (1.5-5.0); LYMPH % 16.3 % (24.0-44.0); MEAN CORPUSCULAR HEMOGLOBIN 29.2 pg (27.0-33.0); MEAN CORPUSCULAR HGB CONC 32.9 g/dl (32.0-36.5); MEAN CORPUSCULAR VOLUME 88.9 fl (80.0-96.0); MONO % 9.7 % (2.0-8.0); NEUTROPHILS % 71.3 % (36.0-66.0); PLATELET COUNT, AUTOMATED 314 10^3/uL (150-450); RED BLOOD COUNT 4.79 10^6/uL (4.30-6.10); WHITE BLOOD COUNT 9.8 10^3/uL (4.0-10.0)
[2021-06-26 07:33] LABS: ALBUMIN 3.2 GM/DL (3.2-5.2); ALT/SGPT 36 U/L (12-78); BLOOD UREA NITROGEN 18 MG/DL (7-18); CALCIUM LEVEL 9.2 MG/DL (8.8-10.2); CARBON DIOXIDE LEVEL 23 MEQ/L (21-32); CHLORIDE LEVEL 107 MEQ/L (98-107); CHOLESTEROL LEVEL 182 MG/DL (< 200); CPK CREATINE PHOSPHOKINASE 1685 U/L (39-308); CREATININE FOR GFR 0.67 MG/DL (0.70-1.30); GLOMERULAR FILTRATION RATE > 60.0 (>49); GLUCOSE, FASTING 114 MG/DL (70-100); LDH LACTATE DEHYDROGENASE 228 U/L (87-241); PHOSPHORUS LEVEL 3.2 MG/DL (2.5-4.9); POTASSIUM SERUM 4.1 MEQ/L (3.5-5.1); SODIUM LEVEL 138 MEQ/L (136-145); TOTAL PROTEIN 7.1 GM/DL (6.4-8.2); TRIGLYCERIDES LEVEL 200 MG/DL (<150)
[2021-06-26] MEDS: PANTOPRAZOLE 40MG VIAL (C9113 PER 1) IV SCH (08:24)
[2021-06-26] MEDS: levETIRAcetam INJection 1,000 MG in D5W 100 ML IV SCH ×2 (08:24→19:20)
[2021-06-26] MEDS: ASPIRIN ENTERIC 325 MG TAB PO SCH (08:26)
[2021-06-26] MEDS: PARoxetine 20MG TABLET PO SCH (08:26)
[2021-06-26] MEDS: CLOPIDOGREL 75 MG TAB PO SCH (08:26)
[2021-06-26] MEDS: TELMISARTAN 20 MG TAB PO SCH (08:27)
[2021-06-26 14:00] VITALS: BP 111/63
[2021-06-26 22:00] VITALS: BP 125/80
[2021-06-27] MEDS: LR 1,000 ML IV SCH (01:50)
[2021-06-27] MEDS: PIPERACILLIN/TAZOBACTAM SOD 3.375 GM in D5W MINI-BAG PLUS 50 ML IV SCH (05:39)
[2021-06-27] MEDS: HEPARIN SOD (PORCINE) 5000UNITS/ML 1ML VIAL/SYRINGE SC SCH ×3 (05:40→20:06)
[2021-06-27 05:45] LABS: HEMATOCRIT 43.2 % (42.0-52.0); HEMOGLOBIN 14.3 g/dl (13.5-17.5); MEAN CORPUSCULAR HEMOGLOBIN 29.4 pg (27.0-33.0); MEAN CORPUSCULAR HGB CONC 33.1 g/dl (32.0-36.5); MEAN CORPUSCULAR VOLUME 88.9 fl (80.0-96.0); PLATELET COUNT, AUTOMATED 291 10^3/uL (150-450); RED BLOOD COUNT 4.86 10^6/uL (4.30-6.10); WHITE BLOOD COUNT 8.2 10^3/uL (4.0-10.0)
[2021-06-27 06:00] VITALS: BP 124/74
[2021-06-27 06:08] LABS: BLOOD UREA NITROGEN 18 MG/DL (7-18); CARBON DIOXIDE LEVEL 25 MEQ/L (21-32); CHLORIDE LEVEL 106 MEQ/L (98-107); CREATININE FOR GFR 0.62 MG/DL (0.70-1.30); GLOMERULAR FILTRATION RATE > 60.0 (>49); GLUCOSE, FASTING 98 MG/DL (70-100); MAGNESIUM LEVEL 2.3 MG/DL (1.8-2.4); POTASSIUM SERUM 4.3 MEQ/L (3.5-5.1); SODIUM LEVEL 139 MEQ/L (136-145)
[2021-06-27] MEDS: levETIRAcetam INJection 1,000 MG in D5W 100 ML IV SCH (07:58)
[2021-06-27] MEDS: PARoxetine 20MG TABLET PO SCH (08:00)
[2021-06-27] MEDS: PANTOPRAZOLE 40MG VIAL (C9113 PER 1) IV SCH (08:00)
[2021-06-27] MEDS: CLOPIDOGREL 75 MG TAB PO SCH (08:01)
[2021-06-27] MEDS: TELMISARTAN 20 MG TAB PO SCH (08:01)
[2021-06-27] MEDS: ASPIRIN ENTERIC 325 MG TAB PO SCH (08:01)
[2021-06-27] MEDS: amLODIPine 5 MG TAB PO SCH (08:02)
[2021-06-27 14:00] VITALS: BP 141/82
[2021-06-27] MEDS: levETIRAcetam 250MG TABLET (KEPPRA) PO SCH (20:06)
[2021-06-27] MEDS: AUGMENTIN 875 MG TAB PO SCH (20:06)
[2021-06-27 22:00] VITALS: BP 134/82
[2021-06-28 04:03] LABS: HEMATOCRIT 42.3 % (42.0-52.0); MEAN CORPUSCULAR HEMOGLOBIN 29.5 pg (27.0-33.0); MEAN CORPUSCULAR HGB CONC 33.1 g/dl (32.0-36.5); MEAN CORPUSCULAR VOLUME 89.2 fl (80.0-96.0); PLATELET COUNT, AUTOMATED 318 10^3/uL (150-450); RED BLOOD COUNT 4.74 10^6/uL (4.30-6.10); WHITE BLOOD COUNT 9.6 10^3/uL (4.0-10.0)
[2021-06-28 04:35] LABS: BLOOD UREA NITROGEN 19 MG/DL (7-18); CALCIUM LEVEL 8.8 MG/DL (8.8-10.2); CARBON DIOXIDE LEVEL 24 MEQ/L (21-32); CHLORIDE LEVEL 107 MEQ/L (98-107); CREATININE FOR GFR 0.62 MG/DL (0.70-1.30); GLOMERULAR FILTRATION RATE > 60.0 (>49); GLUCOSE, FASTING 95 MG/DL (70-100); MAGNESIUM LEVEL 2.3 MG/DL (1.8-2.4); POTASSIUM SERUM 4.1 MEQ/L (3.5-5.1); SODIUM LEVEL 141 MEQ/L (136-145)
[2021-06-28] MEDS: HEPARIN SOD (PORCINE) 5000UNITS/ML 1ML VIAL/SYRINGE SC SCH (05:11)
[2021-06-28 06:00] VITALS: BP 131/81
[2021-06-28] MEDS ORDERED: KEPP1TAB PO (07:33)
[2021-06-28] MEDS ORDERED: AMOX875T2 PO (07:35)
[2021-06-28 08:50] VITALS: BP 131/81
[2021-06-28] MEDS: amLODIPine 5 MG TAB PO SCH (08:50)
[2021-06-28] MEDS: levETIRAcetam 250MG TABLET (KEPPRA) PO SCH (08:50)
[2021-06-28] MEDS: PARoxetine 20MG TABLET PO SCH (08:51)
[2021-06-28] MEDS: ASPIRIN ENTERIC 325 MG TAB PO SCH (08:51)
[2021-06-28] MEDS: AUGMENTIN 875 MG TAB PO SCH (08:51)
[2021-06-28] MEDS: CLOPIDOGREL 75 MG TAB PO SCH (08:52)
[2021-06-28] MEDS: TELMISARTAN 20 MG TAB PO SCH (08:52)
== END 2021-06-28 12:55 | disposition home health service (06) | DRG 53 ==
LOC: EDBD 19:27 → M ED 19:27 → M ED INP 22:07 → M PCU 23:05 → M ICU 06-22 17:50 → M MS5PR 06-25 15:29
PROVIDERS: ADMIT Internal Medicine Pulmonary Disease; ATTEND Family Medicine
PROC: 0BH17EZ Insertion of Endotracheal Airway into Trachea, Via Natural or Artificial Opening (ICD-10-PCS; principal; 2021-06-21)
PROC: 5A1955Z Respiratory Ventilation, Greater than 96 Consecutive Hours (ICD-10-PCS; 2021-06-21)
DX: G40.901 Epilepsy, unspecified, not intractable, with status epilepticus (principal); E87.2 Acidosis; J69.0 Pneumonitis due to inhalation of food and vomit; Z86.73 Personal history of transient ischemic attack (TIA), and cerebral infarction without residual deficits; I10 Essential (primary) hypertension; J96.90 Respiratory failure, unspecified, unspecified whether with hypoxia or hypercapnia; J98.11 Atelectasis; N28.1 Cyst of kidney, acquired; K76.89 Other specified diseases of liver; E78.5 Hyperlipidemia, unspecified; F32.A Depression, unspecified; I25.10 Atherosclerotic heart disease of native coronary artery without angina pectoris; Z95.5 Presence of coronary angioplasty implant and graft; Z20.822 Contact with and (suspected) exposure to COVID-19; M62.82 Rhabdomyolysis; Z79.899 Other long term (current) drug therapy

== ENCOUNTER → 2021-07-27 | Outpatient (CLI) | payer BC ==
[~2021-07-27] MED LIST changes: +AMLO1TAB24 PO; +AMOX875T2 PO; +ASPI-263 PO; +ATOR40TA75 PO; +BACL10TA2 PO; +CLOP75TA2 PO; +KEPP1TAB PO; +METH4TAB8 PO; +TELM1TAB33 PO
[2021-07-27 14:15] LABS: BLOOD UREA NITROGEN 10 MG/DL (7-18); CALCIUM LEVEL 8.9 MG/DL (8.8-10.2); CARBON DIOXIDE LEVEL 30 MEQ/L (21-32); CHLORIDE LEVEL 106 MEQ/L (98-107); CREATININE FOR GFR 0.72 MG/DL (0.70-1.30); GLOMERULAR FILTRATION RATE > 60.0 (>49); GLUCOSE, FASTING 88 MG/DL (70-100); POTASSIUM SERUM 4.9 MEQ/L (3.5-5.1); SODIUM LEVEL 138 MEQ/L (136-145)
[2021-07-27 14:16] LABS: ALBUMIN 3.6 GM/DL (3.2-5.2); ALT/SGPT 29 U/L (12-78); BILIRUBIN,TOTAL 0.3 MG/DL (0.2-1.0); CHOLESTEROL LEVEL 216 MG/DL (<200); CHOLESTEROL RISK RATIO 3.483 (<5); HDL CHOLESTEROL 62 MG/DL (>40); LDL CHOLESTEROL 129 MG/DL (<100); NON-HDL-C 154 MG/DL; TOTAL PROTEIN 6.4 GM/DL (6.4-8.2); TRIGLYCERIDES LEVEL 123 MG/DL (<150)
== END ==
LOC: M PLALAB 10:21
PROVIDERS: ATTEND Nurse Practitioner Family
DX: M62.82 Rhabdomyolysis (principal)

== ENCOUNTER → 2021-08-06 | Outpatient (CLI) | payer BC ==
[2021-08-06 11:01] LABS: BASO # 0.1 10^3/uL (0.0-0.2); BASO % 0.7 % (0.0-1.0); EOS # 0.2 10^3/uL (0.0-0.5); HEMATOCRIT 39.1 % (42.0-52.0); HEMOGLOBIN 12.9 g/dl (13.5-17.5); LYMPH # 2.6 10^3/uL (1.5-5.0); LYMPH % 34.9 % (24.0-44.0); MEAN CORPUSCULAR HEMOGLOBIN 29.9 pg (27.0-33.0); MEAN CORPUSCULAR VOLUME 90.7 fl (80.0-96.0); MONO # 0.7 10^3/uL (0.0-0.8); MONO % 9.3 % (2.0-8.0); NEUTROPHILS % 52.4 % (36.0-66.0); PLATELET COUNT, AUTOMATED 290 10^3/uL (150-450); RED BLOOD COUNT 4.31 10^6/uL (4.30-6.10); WHITE BLOOD COUNT 7.6 10^3/uL (4.0-10.0)
[2021-08-06 11:26] LABS: ALBUMIN 3.5 GM/DL (3.2-5.2); ALT/SGPT 19 U/L (12-78); BILIRUBIN,TOTAL 0.3 MG/DL (0.2-1.0); BLOOD UREA NITROGEN 14 MG/DL (7-18); CALCIUM LEVEL 8.8 MG/DL (8.8-10.2); CARBON DIOXIDE LEVEL 31 MEQ/L (21-32); CHLORIDE LEVEL 103 MEQ/L (98-107); CREATININE FOR GFR 0.76 MG/DL (0.70-1.30); GLOMERULAR FILTRATION RATE > 60.0 (>49); GLUCOSE, FASTING 100 MG/DL (70-100); POTASSIUM SERUM 4.7 MEQ/L (3.5-5.1); SODIUM LEVEL 137 MEQ/L (136-145); TOTAL PROTEIN 6.1 GM/DL (6.4-8.2); VALPROIC ACID (DEPAKOTE) 97.6 UG/ML (50.0-100.0)
== END ==
LOC: M LAB 07:55 → M PLALAB 07:55
PROVIDERS: ATTEND Psychiatry & Neurology Neurology
DX: R56.9 Unspecified convulsions (principal)

== ENCOUNTER → 2021-08-06 | Outpatient (CLI) | payer BC ==
[2021-08-06 11:22] LABS: BLOOD UREA NITROGEN 14 MG/DL (7-18); CREATININE FOR GFR 0.71 MG/DL (0.70-1.30); GLOMERULAR FILTRATION RATE > 60.0 (>49)
== END ==
LOC: M PLALAB 07:58
PROVIDERS: ATTEND Student in an Organized Health Care Education/Training Program
DX: I77.74 Dissection of vertebral artery (principal); I63.411 Cerebral infarction due to embolism of right middle cerebral artery; I63.89 Other cerebral infarction

== ENCOUNTER 2021-12-07 09:58 | Inpatient (IN) | payer BC ==
[~2021-12-07] VITALS: Ht 172.7 cm; Wt 79.0 kg
[2021-12-07 10:38] LABS: VENOUS BASE EXCESS -21.1 (-2.0-2.0); VENOUS HCO3 8.8 MEQ/L (23.0-27.0); VENOUS PARTIAL PRESSURE CO2 33.6 mmHg (38.0-50.0); VENOUS PH 7.035 UNITS (7.330-7.430); VENOUS STANDARD HCO3 9.8 MEQ/L; VENOUS TOTAL CO2 9.8 MEQ/L (24.0-28.0)
[2021-12-07] MEDS ORDERED: levETIRAcetam 500 MG/5 ML VIAL (KEPPRA IV)(J1953) As Ordered ONE (10:39)
[2021-12-07] MEDS ORDERED: levETIRAcetam INJection 1,000 MG in D5W 100 ML IV ONE (10:40)
[2021-12-07] MEDS ORDERED: diazePAM 10MG/2ML SYRINGE (J3360 PER 5MG) As Ordered ONE (10:44)
[2021-12-07] MEDS ORDERED: PROPOFOL 1,000 MG/100 ML VIAL As Ordered ONE (10:54)
[2021-12-07] MEDS ORDERED: propofoL 1,000 MG in IV 1 EA IV SCH (11:00)
[2021-12-07] MEDS ORDERED: SUCCINYLCHOLINE 100 MG/5 ML SYRINGE (J0330) ONE (11:00)
[2021-12-07] MEDS ORDERED: ETOMIDATE INJ 20MG/10ML VIAL ONE (11:00)
[2021-12-07 11:04] LABS: ALBUMIN 3.5 GM/DL (3.2-5.2); ALT/SGPT 18 U/L (12-78); BILIRUBIN,DIRECT 0.1 MG/DL (0.0-0.2); BILIRUBIN,TOTAL 0.5 MG/DL (0.2-1.0); BLOOD UREA NITROGEN 9 MG/DL (7-18); CALCIUM LEVEL 9.3 MG/DL (8.8-10.2); CARBON DIOXIDE LEVEL 10 MEQ/L (21-32); CHLORIDE LEVEL 104 MEQ/L (98-107); CREATININE FOR GFR 1.21 MG/DL (0.70-1.30); ETHYL ALCOHOL (ETHANOL) < 0.003 % (0.000-0.010); GLOMERULAR FILTRATION RATE > 60.0 (>49); GLUCOSE, FASTING 191 MG/DL (70-100); POTASSIUM SERUM 4.4 MEQ/L (3.5-5.1); SODIUM LEVEL 137 MEQ/L (136-145); TOTAL PROTEIN 7.1 GM/DL (6.4-8.2); VALPROIC ACID (DEPAKOTE) 67.2 UG/ML (50.0-100.0)
[2021-12-07 11:06] LABS: HEMATOCRIT 47.8 % (42.0-52.0); HEMOGLOBIN 14.7 g/dl (13.5-17.5); MEAN CORPUSCULAR HEMOGLOBIN 29.1 pg (27.0-33.0); MEAN CORPUSCULAR HGB CONC 30.8 g/dl (32.0-36.5); MEAN CORPUSCULAR VOLUME 94.7 fl (80.0-96.0); PLATELET COUNT, AUTOMATED 456 10^3/uL (150-450); RED BLOOD COUNT 5.05 10^6/uL (4.30-6.10); WHITE BLOOD COUNT 13.5 10^3/uL (4.0-10.0)
[2021-12-07 11:10] LABS: OSMOLALITY SERUM 297 MOSM/KG (280-301)
[2021-12-07] MEDS ORDERED: diazePAM 10MG/2ML SYRINGE (J3360 PER 5MG) IV ONE (11:25)
[2021-12-07 11:30] LABS: ATYPICAL LYMPH 2 % (0-5); BASOPHILS 1 % (0-1); EOSINOPHILS 2 % (0-3); LYMPHOCYTES 43 % (16-44); MONOCYTES 10 % (0-5); NEUTROPHILS 42 % (28-66); PLATELET ESTIMATE INCREASED (NORMAL)
[2021-12-07 11:33] LABS: OVALOCYTES 1+; TEAR DROP CELLS 1+
[2021-12-07 11:35] LABS: CRENATED RBC 1+
[2021-12-07 11:36] LABS: POIKILOCYTOSIS 1+
[2021-12-07 12:06] LABS: AMPHETAMINES LEVEL URINE NEGATIVE (NEGATIVE); BARBITURATES URINE NEGATIVE (NEGATIVE); BENZODIAZEPINES URINE POSITIVE (NEGATIVE); CANNABINOIDS URINE POSITIVE (NEGATIVE); COCAINE METABOLITE URINE NEGATIVE (NEGATIVE); METHADONE URINE NEGATIVE (NEGATIVE); OPIATES URINE NEGATIVE (NEGATIVE); PHENCYCLIDINE URINE NEGATIVE (NEGATIVE)
[2021-12-07] MEDS ORDERED: ASPI81TA26 PO (12:08)
[2021-12-07] MEDS ORDERED: DEPA1TAB3 PO (12:08)
[2021-12-07] MEDS ORDERED: HOME MED LIST COMPLETE! XX SCH (12:10)
[2021-12-07] MEDS ORDERED: SUCCINYLCHOLINE INJ 200 MG/10 ML VIAL (J0330) IV STA (12:31)
[2021-12-07] MEDS ORDERED: ETOMIDATE INJ 20MG/10ML VIAL IV STA (12:31)
[2021-12-07 12:35] LABS: ABG BASE EXCESS -5.7 (-2.0-2.0); ABG HCO3 20.1 MEQ/L (22.0-26.0); ABG O2 SATURATION 98.9 % (95.0-99.0); ABG PARTIAL PRESSURE CO2 40.4 mmHg (35.0-45.0); ABG STANDARD HCO3 19.9 MEQ/L (22.0-26.0); ABG TOTAL CO2 21.4 MEQ/L (23.0-31.0); ABG pH (ARTERIAL) 7.315 UNITS (7.350-7.450)
[2021-12-07] MEDS ORDERED: LACOSAMIDE 10MG/ML 20ML VIAL (VIMPAT) IV STA (13:05)
[2021-12-07] MEDS: NS 1,000 ML IV SCH (13:50)
[2021-12-07] MEDS: propofoL 1,000 MG in IV 1 EA IV SCH ×2 (14:25→19:26)
[2021-12-07] MEDS ORDERED: NS 1,000 ML IV ONE (15:05)
[2021-12-07 15:26] LABS: RSV AMPLIFICATION NEGATIVE (NEGATIVE)
[2021-12-07 17:00] VITALS: BP 132/87
[2021-12-07] MEDS ORDERED: MIDAZOLAM INJ 2MG/2ML VIAL (J2250 PER 1MG) As Ordered ONE (17:22)
[2021-12-07] MEDS: MIDAZOLAM INJ 2MG/2ML VIAL (J2250 PER 1MG) IV PRN (17:46)
[2021-12-07 18:00] VITALS: BP 101/74
[2021-12-07 20:00] VITALS: BP 120/86
[2021-12-07] MEDS: CHLORHEXIDINE GLUCONATE 0.12 % 15ML UDC (PERIDEX ORAL RINSE) MT SCH (20:27)
[2021-12-07 21:00] VITALS: BP 135/98
[2021-12-07] MEDS ORDERED: VALPROATE SOD INJ 500 MG in D5W 50 ML IV SCH (21:00)
[2021-12-07] MEDS ORDERED: DIVALPROEX 500 MG TAB PO SCH (21:00)
[2021-12-07 22:00] VITALS: BP 143/96
[2021-12-07 23:00] VITALS: BP 116/76
[2021-12-08] VITALS (21 sets, daily range): BP systolic 98–138; BP diastolic 56–90; O2SAT 97
[2021-12-08] MEDS: LACOSAMIDE 10MG/ML 20ML VIAL (VIMPAT) IV SCH ×2 (01:15→14:36)
[2021-12-08] MEDS: propofoL 1,000 MG in IV 1 EA IV SCH ×2 (01:15→09:22)
[2021-12-08] MEDS: NS 1,000 ML IV SCH ×3 (01:16→19:50)
[2021-12-08 05:45] LABS: BASO # 0.1 10^3/uL (0.0-0.2); BASO % 0.4 % (0.0-1.0); EOS # 0.1 10^3/uL (0.0-0.5); EOS % 0.7 % (0.0-3.0); HEMATOCRIT 44.3 % (42.0-52.0); HEMOGLOBIN 14.5 g/dl (13.5-17.5); LYMPH # 2.5 10^3/uL (1.5-5.0); MEAN CORPUSCULAR HEMOGLOBIN 28.9 pg (27.0-33.0); MEAN CORPUSCULAR HGB CONC 32.7 g/dl (32.0-36.5); MEAN CORPUSCULAR VOLUME 88.2 fl (80.0-96.0); MONO # 1.4 10^3/uL (0.0-0.8); MONO % 10.4 % (2.0-8.0); NEUTROPHILS # 9.1 10^3/uL (1.5-8.5); PLATELET COUNT, AUTOMATED 357 10^3/uL (150-450); RED BLOOD COUNT 5.02 10^6/uL (4.30-6.10); WHITE BLOOD COUNT 13.1 10^3/uL (4.0-10.0)
[2021-12-08 06:01] LABS: ABG pH (ARTERIAL) 7.483 UNITS (7.350-7.450)
[2021-12-08 06:02] LABS: ABG BASE EXCESS 6.4 (-2.0-2.0); ABG HCO3 30.5 MEQ/L (22.0-26.0); ABG O2 SATURATION 98.8 % (95.0-99.0); ABG PARTIAL PRESSURE CO2 41.6 mmHg (35.0-45.0); ABG STANDARD HCO3 30.3 MEQ/L (22.0-26.0); ABG TOTAL CO2 31.8 MEQ/L (23.0-31.0)
[2021-12-08 06:13] LABS: ALT/SGPT 16 U/L (12-78); BILIRUBIN,TOTAL 0.3 MG/DL (0.2-1.0); BLOOD UREA NITROGEN 8 MG/DL (7-18); CALCIUM LEVEL 8.3 MG/DL (8.8-10.2); CARBON DIOXIDE LEVEL 30 MEQ/L (21-32); CHLORIDE LEVEL 104 MEQ/L (98-107); CREATININE FOR GFR 0.66 MG/DL (0.70-1.30); GLOMERULAR FILTRATION RATE > 60.0 (>49); GLUCOSE, FASTING 118 MG/DL (70-100); MAGNESIUM LEVEL 2.2 MG/DL (1.8-2.4); PHOSPHORUS LEVEL 4.2 MG/DL (2.5-4.9); POTASSIUM SERUM 3.7 MEQ/L (3.5-5.1); SODIUM LEVEL 138 MEQ/L (136-145); TOTAL PROTEIN 6.4 GM/DL (6.4-8.2)
[2021-12-08] MEDS ORDERED: VALPROATE SOD INJ 500 MG in D5W MINI-BAG PLUS 50 ML IV SCH (06:43)
[2021-12-08] MEDS: VALPROATE SOD INJ 500 MG in D5W MINI-BAG PLUS 50 ML IV SCH ×2 (09:17→21:19)
[2021-12-08] MEDS: PANTOPRAZOLE 40MG VIAL IV SCH (09:17)
[2021-12-08] MEDS: CHLORHEXIDINE GLUCONATE 0.12 % 15ML UDC (PERIDEX ORAL RINSE) MT SCH ×2 (09:20→21:19)
[2021-12-08] MEDS: ENOXAPARIN 40MG/0.4ML SYRINGE (J1650 PER 10MG) SC SCH (09:20)
[2021-12-08 12:34] LABS: HEMATOCRIT 43.9 % (42.0-52.0); HEMOGLOBIN 14.3 g/dl (13.5-17.5); MEAN CORPUSCULAR HEMOGLOBIN 29.4 pg (27.0-33.0); MEAN CORPUSCULAR HGB CONC 32.6 g/dl (32.0-36.5); MEAN CORPUSCULAR VOLUME 90.1 fl (80.0-96.0); PLATELET COUNT, AUTOMATED 360 10^3/uL (150-450); RED BLOOD COUNT 4.87 10^6/uL (4.30-6.10); WHITE BLOOD COUNT 14.3 10^3/uL (4.0-10.0)
[2021-12-09] VITALS (9 sets, daily range): BP systolic 99–159; BP diastolic 56–71
[2021-12-09] MEDS: MIDAZOLAM INJ 2MG/2ML VIAL (J2250 PER 1MG) IV PRN (01:46)
[2021-12-09] MEDS: LACOSAMIDE 10MG/ML 20ML VIAL (VIMPAT) IV SCH ×2 (01:46→15:12)
[2021-12-09] MEDS: NS 1,000 ML IV SCH (05:03)
[2021-12-09 05:57] LABS: ABG BASE EXCESS 3.2 (-2.0-2.0); ABG HCO3 26.9 MEQ/L (22.0-26.0); ABG O2 SATURATION 97.4 % (95.0-99.0); ABG PARTIAL PRESSURE CO2 37.9 mmHg (35.0-45.0); ABG PARTIAL PRESSURE O2 95.4 mmHg (75.0-100.0); ABG STANDARD HCO3 27.3 MEQ/L (22.0-26.0); ABG TOTAL CO2 28.1 MEQ/L (23.0-31.0); ABG pH (ARTERIAL) 7.469 UNITS (7.350-7.450)
[2021-12-09] MEDS: PANTOPRAZOLE 40MG VIAL IV SCH (09:18)
[2021-12-09] MEDS: ENOXAPARIN 40MG/0.4ML SYRINGE (J1650 PER 10MG) SC SCH (09:19)
[2021-12-09] MEDS: VALPROATE SOD INJ 500 MG in D5W MINI-BAG PLUS 50 ML IV SCH (09:19)
[2021-12-09] MEDS ORDERED: ATORVASTATIN 20 MG TAB PO SCH (21:00)
[2021-12-09] MEDS: DIVALPROEX 500 MG TAB PO SCH (21:27)
[2021-12-09] MEDS: LACOSAMIDE 50 MG TAB (VIMPAT) PO SCH (21:27)
[2021-12-10 02:14] VITALS: BP 109/79
[2021-12-10 04:00] VITALS: BP 110/74
[2021-12-10 08:57] LABS: HEMATOCRIT 39.6 % (42.0-52.0); MEAN CORPUSCULAR HEMOGLOBIN 29.1 pg (27.0-33.0); MEAN CORPUSCULAR HGB CONC 32.8 g/dl (32.0-36.5); MEAN CORPUSCULAR VOLUME 88.8 fl (80.0-96.0); PLATELET COUNT, AUTOMATED 179 10^3/uL (150-450); RED BLOOD COUNT 4.46 10^6/uL (4.30-6.10); WHITE BLOOD COUNT 10.2 10^3/uL (4.0-10.0)
[2021-12-10] MEDS ORDERED: amLODIPine 5 MG TAB PO SCH (09:00)
[2021-12-10] MEDS ORDERED: ASPIRIN 81MG ENTERIC TABLET PO SCH (09:00)
[2021-12-10 09:32] LABS: BLOOD UREA NITROGEN 7 MG/DL (7-18); CALCIUM LEVEL 8.9 MG/DL (8.8-10.2); CARBON DIOXIDE LEVEL 27 MEQ/L (21-32); CHLORIDE LEVEL 103 MEQ/L (98-107); CREATININE FOR GFR 0.62 MG/DL (0.70-1.30); GLOMERULAR FILTRATION RATE > 60.0 (>49); GLUCOSE, FASTING 123 MG/DL (70-100); POTASSIUM SERUM 3.8 MEQ/L (3.5-5.1); SODIUM LEVEL 137 MEQ/L (136-145)
[2021-12-10] MEDS: DIVALPROEX 500 MG TAB PO SCH (09:35)
[2021-12-10] MEDS: LACOSAMIDE 50 MG TAB (VIMPAT) PO SCH (09:35)
[2021-12-10] MEDS: ENOXAPARIN 40MG/0.4ML SYRINGE (J1650 PER 10MG) SC SCH (09:35)
[2021-12-10 09:38] VITALS: BP 114/63
[2021-12-10 12:00] VITALS: BP 132/80
[2021-12-10] MEDS ORDERED: VIMP150T PO (12:31)
== END 2021-12-10 14:08 | disposition home or self-care (01) | DRG 53 ==
LOC: EDBD 09:58 → M ED 09:58 → M ED INP 13:53 → ENRESERV 13:56 → M ICU 16:43 → M 4MAIN 12-10 01:57
PROVIDERS: ADMIT Internal Medicine Critical Care Medicine; ATTEND Internal Medicine Critical Care Medicine
PROC: 5A1945Z Respiratory Ventilation, 24-96 Consecutive Hours (ICD-10-PCS; principal; 2021-12-07)
DX: G40.901 Epilepsy, unspecified, not intractable, with status epilepticus (principal); J96.01 Acute respiratory failure with hypoxia; I69.351 Hemiplegia and hemiparesis following cerebral infarction affecting right dominant side; I10 Essential (primary) hypertension; E78.00 Pure hypercholesterolemia, unspecified; F12.90 Cannabis use, unspecified, uncomplicated; F32.A Depression, unspecified; Z96.653 Presence of artificial knee joint, bilateral; Z79.899 Other long term (current) drug therapy

== ENCOUNTER → 2022-02-09 | Outpatient (CLI) | payer BC ==
[~2022-02-09] MED LIST changes: +ASPI81TA26 PO; +DEPA1TAB3 PO; +VIMP150T PO
[2022-02-09 13:14] LABS: BASO # 0.1 10^3/uL (0.0-0.2); BASO % 0.9 % (0.0-1.0); EOS # 0.2 10^3/uL (0.0-0.5); EOS % 2.6 % (0.0-3.0); HEMATOCRIT 44.2 % (42.0-52.0); HEMOGLOBIN 14.1 g/dl (13.5-17.5); LYMPH # 2.6 10^3/uL (1.5-5.0); LYMPH % 38.6 % (24.0-44.0); MEAN CORPUSCULAR HEMOGLOBIN 29.5 pg (27.0-33.0); MEAN CORPUSCULAR HGB CONC 31.9 g/dl (32.0-36.5); MEAN CORPUSCULAR VOLUME 92.5 fl (80.0-96.0); MONO # 0.6 10^3/uL (0.0-0.8); MONO % 8.7 % (2.0-8.0); NEUTROPHILS # 3.3 10^3/uL (1.5-8.5); NEUTROPHILS % 48.9 % (36.0-66.0); PLATELET COUNT, AUTOMATED 234 10^3/uL (150-450); RED BLOOD COUNT 4.78 10^6/uL (4.30-6.10); WHITE BLOOD COUNT 6.6 10^3/uL (4.0-10.0)
[2022-02-09 14:37] LABS: ALBUMIN 3.5 GM/DL (3.2-5.2); ALT/SGPT 21 U/L (12-78); BILIRUBIN,TOTAL 0.3 MG/DL (0.2-1.0); BLOOD UREA NITROGEN 8 MG/DL (7-18); CALCIUM LEVEL 8.8 MG/DL (8.8-10.2); CARBON DIOXIDE LEVEL 26 MEQ/L (21-32); CHLORIDE LEVEL 109 MEQ/L (98-107); CREATININE FOR GFR 0.71 MG/DL (0.70-1.30); GLOMERULAR FILTRATION RATE > 60.0 (>49); GLUCOSE, FASTING 91 MG/DL (70-100); POTASSIUM SERUM 4.9 MEQ/L (3.5-5.1); SODIUM LEVEL 140 MEQ/L (136-145); TOTAL PROTEIN 6.3 GM/DL (6.4-8.2); VALPROIC ACID (DEPAKOTE) 54.6 UG/ML (50.0-100.0)
== END ==
LOC: M PLALAB 09:26
PROVIDERS: ATTEND Psychiatry & Neurology Neurology
DX: R56.9 Unspecified convulsions (principal)

== ENCOUNTER 2022-03-02 08:39 | Inpatient (IN) | payer BC ==
[2022-03-02] VITALS (11 sets, daily range): BP systolic 102–132; BP diastolic 65–87
[~2022-03-02] VITALS: Ht 180.3 cm; Wt 80.0 kg
[2022-03-02] MEDS ORDERED: NS 1,000 ML IV ONE ×2 (08:45→09:40)
[2022-03-02] MEDS ORDERED: LACOSAMIDE 10MG/ML 20ML VIAL (VIMPAT) IV STA (08:52)
[2022-03-02] MEDS ORDERED: VALPROATE SOD INJ 1,000 MG in D5W 50 ML IV ONE (08:55)
[2022-03-02 09:15] LABS: HEMATOCRIT 49.5 % (42.0-52.0); MEAN CORPUSCULAR HEMOGLOBIN 29.9 pg (27.0-33.0); MEAN CORPUSCULAR HGB CONC 30.3 g/dl (32.0-36.5); MEAN CORPUSCULAR VOLUME 98.6 fl (80.0-96.0); PLATELET COUNT, AUTOMATED 323 10^3/uL (150-450); RED BLOOD COUNT 5.02 10^6/uL (4.30-6.10); WHITE BLOOD COUNT 16.9 10^3/uL (4.0-10.0)
[2022-03-02 09:43] LABS: ABG BASE EXCESS -15.2 (-2.0-2.0); ABG HCO3 12.3 MEQ/L (22.0-26.0); ABG O2 SATURATION 92.7 % (95.0-99.0); ABG PARTIAL PRESSURE CO2 34.5 mmHg (35.0-45.0); ABG PARTIAL PRESSURE O2 77.4 mmHg (75.0-100.0); ABG STANDARD HCO3 13.1 MEQ/L (22.0-26.0); ABG TOTAL CO2 13.4 MEQ/L (23.0-31.0)
[2022-03-02 09:52] LABS: ATYPICAL LYMPH 14 % (0-5); EOSINOPHILS 2 % (0-3); LYMPHOCYTES 41 % (16-44); MONOCYTES 5 % (0-5); NEUTROPHILS 38 % (28-66)
[2022-03-02 09:53] LABS: PLATELET ESTIMATE NORMAL (NORMAL)
[2022-03-02] MEDS ORDERED: LORazepam 2 MG/ML VIAL As Ordered ONE (10:00)
[2022-03-02] MEDS ORDERED: LORazepam 2 MG/ML VIAL IV STA ×3 (10:00→11:48)
[2022-03-02] MEDS ORDERED: LIDOCAINE 2% 5ML JELLY UROJET TOP ONE (10:05)
[2022-03-02] MEDS ORDERED: ETOMIDATE INJ 20MG/10ML VIAL IV ONE (10:05)
[2022-03-02] MEDS ORDERED: SUCCINYLCHOLINE INJ 200 MG/10 ML VIAL (J0330) IV ONE (10:05)
[2022-03-02] MEDS ORDERED: propofoL 1,000 MG in IV 1 EA IV SCH (10:05)
[2022-03-02] MEDS ORDERED: LACO150T PO (10:12)
[2022-03-02] MEDS ORDERED: DEPA1TAB3 PO (10:12)
[2022-03-02] MEDS ORDERED: PROPOFOL 1,000 MG/100 ML VIAL As Ordered ONE (10:16)
[2022-03-02] MEDS ORDERED: HOME MED LIST COMPLETE! XX SCH (10:20)
[2022-03-02 10:27] LABS: ACETAMINOPHEN LEVEL < 2.0 UG/ML (10.0-30.0); ALBUMIN 3.7 GM/DL (3.2-5.2); ALT/SGPT 33 U/L (12-78); BILIRUBIN,DIRECT 0.1 MG/DL (0.0-0.2); BILIRUBIN,TOTAL 0.4 MG/DL (0.2-1.0); BLOOD UREA NITROGEN 12 MG/DL (7-18); CALCIUM LEVEL 9.2 MG/DL (8.8-10.2); CARBON DIOXIDE LEVEL 10 MEQ/L (21-32); CHLORIDE LEVEL 102 MEQ/L (98-107); CREATININE FOR GFR 1.51 MG/DL (0.70-1.30); ETHYL ALCOHOL (ETHANOL) < 0.003 % (0.000-0.010); GLOMERULAR FILTRATION RATE 49.9 (>49); GLUCOSE, FASTING 266 MG/DL (70-100); POTASSIUM SERUM 4.6 MEQ/L (3.5-5.1); SALICYLATE LEVEL 3.3 MG/DL (5.0-30.0); SODIUM LEVEL 136 MEQ/L (136-145); TOTAL PROTEIN 6.8 GM/DL (6.4-8.2); VALPROIC ACID (DEPAKOTE) 77.6 UG/ML (50.0-100.0)
[2022-03-02] MEDS ORDERED: MIDAZOLAM 5MG/ML 1ML VIAL (J2250 PER 1MG) As Ordered ONE (10:27)
[2022-03-02 10:30] LABS: RSV AMPLIFICATION NEGATIVE (NEGATIVE)
[2022-03-02] MEDS ORDERED: MIDAZOLAM 5MG/ML 1ML VIAL (J2250 PER 1MG) IV ONE (10:30)
[2022-03-02] MEDS ORDERED: MIDAZOLAM INJ 2MG/2ML VIAL (J2250 PER 1MG) IV ONE (10:30)
[2022-03-02 11:08] LABS: ABG BASE EXCESS -12.8 (-2.0-2.0); ABG HCO3 16.6 MEQ/L (22.0-26.0); ABG O2 SATURATION 96.9 % (95.0-99.0); ABG PARTIAL PRESSURE CO2 51.3 mmHg (35.0-45.0); ABG PARTIAL PRESSURE O2 110.9 mmHg (75.0-100.0); ABG STANDARD HCO3 14.7 MEQ/L (22.0-26.0); ABG TOTAL CO2 18.1 MEQ/L (23.0-31.0)
[2022-03-02 11:15] LABS: ABG pH (ARTERIAL) 7.127 UNITS (7.350-7.450)
[2022-03-02 11:16] LABS: CK-MB VALUE MASS 1.5 NG/ML (<3.6); MB/CK RELATIVE INDEX 1.43 (< OR =4)
[2022-03-02] MEDS: D5W/0.9% SODIUM CHLORIDE 1,000 ML IV SCH ×2 (12:09→22:53)
[2022-03-02] MEDS: propofoL 1,000 MG in IV 1 EA IV SCH ×3 (14:12→20:34)
[2022-03-02] MEDS ORDERED: SUCCINYLCHOLINE 100 MG/5 ML SYRINGE (J0330) ONE (14:43)
[2022-03-02] MEDS ORDERED: ETOMIDATE INJ 20MG/10ML VIAL ONE (14:43)
[2022-03-02 15:17] LABS: MAGNESIUM LEVEL 2.6 MG/DL (1.8-2.4)
[2022-03-02] MEDS: IPRATROPIUM 0.5MG/ALBUTEROL 2.5MG INH SOL UD 3ML (DUONEB) NEB SCH ×3 (16:29→19:19)
[2022-03-02 16:56] LABS: ABG BASE EXCESS -2.5 (-2.0-2.0); ABG HCO3 22.3 MEQ/L (22.0-26.0); ABG O2 SATURATION 94.4 % (95.0-99.0); ABG PARTIAL PRESSURE CO2 38.8 mmHg (35.0-45.0); ABG PARTIAL PRESSURE O2 68.5 mmHg (75.0-100.0); ABG STANDARD HCO3 22.4 MEQ/L (22.0-26.0); ABG TOTAL CO2 23.5 MEQ/L (23.0-31.0); ABG pH (ARTERIAL) 7.378 UNITS (7.350-7.450)
[2022-03-02] MEDS: VALPROATE SOD INJ 500 MG in D5W MINI-BAG PLUS 50 ML IV SCH (18:02)
[2022-03-02] MEDS ORDERED: DIVALPROEX 500 MG TAB PO SCH (21:00)
[2022-03-02] MEDS ORDERED: LACOSAMIDE 10MG/ML 20ML VIAL (VIMPAT) IV SCH (21:00)
[2022-03-02] MEDS: CHLORHEXIDINE GLUCONATE 0.12 % 15ML UDC (PERIDEX ORAL RINSE) MT SCH (21:37)
[2022-03-02] MEDS: LACOSAMIDE 10MG/ML 20ML VIAL (VIMPAT) IV SCH (21:58)
[2022-03-02] MEDS: ATORVASTATIN 20 MG TAB PO SCH (21:58)
[2022-03-03] VITALS (23 sets, daily range): BP systolic 100–137; BP diastolic 61–93
[2022-03-03] MEDS: propofoL 1,000 MG in IV 1 EA IV SCH ×3 (00:21→17:00)
[2022-03-03] MEDS: VALPROATE SOD INJ 500 MG in D5W MINI-BAG PLUS 50 ML IV SCH ×3 (02:16→17:17)
[2022-03-03 04:10] LABS: HEMOGLOBIN 13.4 g/dl (13.5-17.5); MEAN CORPUSCULAR HEMOGLOBIN 30.2 pg (27.0-33.0); MEAN CORPUSCULAR HGB CONC 33.5 g/dl (32.0-36.5); MEAN CORPUSCULAR VOLUME 90.3 fl (80.0-96.0); PLATELET COUNT, AUTOMATED 250 10^3/uL (150-450); RED BLOOD COUNT 4.43 10^6/uL (4.30-6.10); WHITE BLOOD COUNT 11.5 10^3/uL (4.0-10.0)
[2022-03-03 04:41] LABS: ALBUMIN 3.1 GM/DL (3.2-5.2); ALT/SGPT 33 U/L (12-78); BILIRUBIN,TOTAL 0.4 MG/DL (0.2-1.0); BLOOD UREA NITROGEN 7 MG/DL (7-18); CALCIUM LEVEL 8.1 MG/DL (8.8-10.2); CARBON DIOXIDE LEVEL 26 MEQ/L (21-32); CHLORIDE LEVEL 109 MEQ/L (98-107); CREATININE FOR GFR 0.76 MG/DL (0.70-1.30); GLOMERULAR FILTRATION RATE > 60.0 (>49); GLUCOSE, FASTING 161 MG/DL (70-100); POTASSIUM SERUM 3.8 MEQ/L (3.5-5.1); SODIUM LEVEL 140 MEQ/L (136-145); TOTAL PROTEIN 6.1 GM/DL (6.4-8.2)
[2022-03-03 06:19] LABS: ABG BASE EXCESS 0.5 (-2.0-2.0); ABG HCO3 23.4 MEQ/L (22.0-26.0); ABG PARTIAL PRESSURE CO2 32.8 mmHg (35.0-45.0); ABG STANDARD HCO3 24.8 MEQ/L (22.0-26.0); ABG TOTAL CO2 24.4 MEQ/L (23.0-31.0); ABG pH (ARTERIAL) 7.471 UNITS (7.350-7.450)
[2022-03-03] MEDS: IPRATROPIUM 0.5MG/ALBUTEROL 2.5MG INH SOL UD 3ML (DUONEB) NEB SCH ×4 (07:46→19:58)
[2022-03-03] MEDS ORDERED: ASPIRIN 81MG ENTERIC TABLET PO SCH (09:00)
[2022-03-03] MEDS ORDERED: DIVALPROEX 500 MG TAB PO SCH (09:00)
[2022-03-03] MEDS: D5W/0.9% SODIUM CHLORIDE 1,000 ML IV SCH (09:32)
[2022-03-03] MEDS: PANTOPRAZOLE 40MG VIAL IV SCH (09:49)
[2022-03-03] MEDS: LACOSAMIDE 10MG/ML 20ML VIAL (VIMPAT) IV SCH ×2 (09:49→20:11)
[2022-03-03] MEDS: ASPIRIN 81 MG CHEW TABLET PO SCH (09:50)
[2022-03-03] MEDS: CHLORHEXIDINE GLUCONATE 0.12 % 15ML UDC (PERIDEX ORAL RINSE) MT SCH ×2 (09:50→20:11)
[2022-03-03] MEDS: MIDAZOLAM INJ 2MG/2ML VIAL (J2250 PER 1MG) IV PRN ×3 (10:45→12:29)
[2022-03-03] MEDS: ENOXAPARIN 40MG/0.4ML SYRINGE (J1650 PER 10MG) SC SCH (12:30)
[2022-03-03] MEDS: PARoxetine 20MG TABLET PO SCH (19:29)
[2022-03-03] MEDS: amLODIPine 5 MG TAB PO SCH (19:29)
[2022-03-03] MEDS: ATORVASTATIN 20 MG TAB PO SCH (20:11)
[2022-03-04] VITALS (20 sets, daily range): BP systolic 110–144; BP diastolic 62–91
[2022-03-04] MEDS: VALPROATE SOD INJ 500 MG in D5W MINI-BAG PLUS 50 ML IV SCH ×3 (01:15→17:53)
[2022-03-04 05:44] LABS: ABG BASE EXCESS 2.6 (-2.0-2.0); ABG HCO3 25.7 MEQ/L (22.0-26.0); ABG O2 SATURATION 97.9 % (95.0-99.0); ABG PARTIAL PRESSURE CO2 35.1 mmHg (35.0-45.0); ABG PARTIAL PRESSURE O2 102.9 mmHg (75.0-100.0); ABG STANDARD HCO3 26.8 MEQ/L (22.0-26.0); ABG TOTAL CO2 26.8 MEQ/L (23.0-31.0); ABG pH (ARTERIAL) 7.483 UNITS (7.350-7.450)
[2022-03-04 06:18] LABS: BASO % 0.2 % (0.0-1.0); EOS % 0.3 % (0.0-3.0); HEMATOCRIT 37.5 % (42.0-52.0); HEMOGLOBIN 12.4 g/dl (13.5-17.5); LYMPH % 15.8 % (24.0-44.0); MEAN CORPUSCULAR HEMOGLOBIN 30.4 pg (27.0-33.0); MEAN CORPUSCULAR HGB CONC 33.1 g/dl (32.0-36.5); MEAN CORPUSCULAR VOLUME 91.9 fl (80.0-96.0); MONO # 1.5 10^3/uL (0.0-0.8); MONO % 11.7 % (2.0-8.0); NEUTROPHILS # 8.9 10^3/uL (1.5-8.5); NEUTROPHILS % 71.5 % (36.0-66.0); PLATELET COUNT, AUTOMATED 221 10^3/uL (150-450); RED BLOOD COUNT 4.08 10^6/uL (4.30-6.10); WHITE BLOOD COUNT 12.5 10^3/uL (4.0-10.0)
[2022-03-04 06:40] LABS: BLOOD UREA NITROGEN 8 MG/DL (7-18); CALCIUM LEVEL 8.2 MG/DL (8.8-10.2); CARBON DIOXIDE LEVEL 27 MEQ/L (21-32); CHLORIDE LEVEL 110 MEQ/L (98-107); GLOMERULAR FILTRATION RATE > 60.0 (>49); GLUCOSE, FASTING 101 MG/DL (70-100); POTASSIUM SERUM 3.7 MEQ/L (3.5-5.1); SODIUM LEVEL 142 MEQ/L (136-145)
[2022-03-04] MEDS: propofoL 1,000 MG in IV 1 EA IV SCH (07:56)
[2022-03-04] MEDS: IPRATROPIUM 0.5MG/ALBUTEROL 2.5MG INH SOL UD 3ML (DUONEB) NEB SCH ×4 (08:00→20:06)
[2022-03-04] MEDS: ASPIRIN 81 MG CHEW TABLET PO SCH (09:00)
[2022-03-04] MEDS: CHLORHEXIDINE GLUCONATE 0.12 % 15ML UDC (PERIDEX ORAL RINSE) MT SCH ×2 (09:00→19:32)
[2022-03-04] MEDS: LACOSAMIDE 10MG/ML 20ML VIAL (VIMPAT) IV SCH (09:05)
[2022-03-04] MEDS: PANTOPRAZOLE 40MG VIAL IV SCH (09:05)
[2022-03-04] MEDS: ENOXAPARIN 40MG/0.4ML SYRINGE (J1650 PER 10MG) SC SCH (14:41)
[2022-03-04] MEDS ORDERED: LR 1,000 ML IV ONE (17:40)
[2022-03-04] MEDS: ATORVASTATIN 20 MG TAB PO SCH (20:30)
[2022-03-04] MEDS: LACOSAMIDE 50 MG TAB (VIMPAT) PO SCH (21:00)
[2022-03-04] MEDS: DIVALPROEX 500 MG TAB PO SCH (21:00)
[2022-03-05] VITALS (7 sets, daily range): BP systolic 116–165; BP diastolic 66–88
[2022-03-05 05:02] LABS: HEMATOCRIT 37.1 % (42.0-52.0); HEMOGLOBIN 12.2 g/dl (13.5-17.5); MEAN CORPUSCULAR HEMOGLOBIN 29.8 pg (27.0-33.0); MEAN CORPUSCULAR HGB CONC 32.9 g/dl (32.0-36.5); MEAN CORPUSCULAR VOLUME 90.7 fl (80.0-96.0); PLATELET COUNT, AUTOMATED 220 10^3/uL (150-450); RED BLOOD COUNT 4.09 10^6/uL (4.30-6.10); WHITE BLOOD COUNT 13.9 10^3/uL (4.0-10.0)
[2022-03-05] MEDS: IPRATROPIUM 0.5MG/ALBUTEROL 2.5MG INH SOL UD 3ML (DUONEB) NEB SCH ×4 (08:25→19:05)
[2022-03-05] MEDS: DIVALPROEX 500 MG TAB PO SCH ×2 (08:46→20:08)
[2022-03-05] MEDS: amLODIPine 5 MG TAB PO SCH (08:47)
[2022-03-05] MEDS: LACOSAMIDE 50 MG TAB (VIMPAT) PO SCH ×2 (08:47→20:05)
[2022-03-05] MEDS: PARoxetine 20MG TABLET PO SCH (08:47)
[2022-03-05] MEDS: ASPIRIN 81 MG CHEW TABLET PO SCH (08:47)
[2022-03-05 12:28] LABS: BLOOD UREA NITROGEN 12 MG/DL (7-18); CARBON DIOXIDE LEVEL 26 MEQ/L (21-32); CHLORIDE LEVEL 108 MEQ/L (98-107); CREATININE FOR GFR 0.63 MG/DL (0.70-1.30); GLOMERULAR FILTRATION RATE > 60.0 (>49); GLUCOSE, FASTING 103 MG/DL (70-100); POTASSIUM SERUM 3.9 MEQ/L (3.5-5.1); SODIUM LEVEL 140 MEQ/L (136-145)
[2022-03-05] MEDS: ENOXAPARIN 40MG/0.4ML SYRINGE (J1650 PER 10MG) SC SCH (12:30)
[2022-03-05] MEDS: levOCARNitine ORAL SOLUTION 1,000 MG/10 ML (CARNITOR) PO SCH ×2 (15:39→20:04)
[2022-03-05] MEDS: ATORVASTATIN 20 MG TAB PO SCH (20:04)
[2022-03-06 04:00] VITALS: BP 139/85
[2022-03-06] MEDS: IPRATROPIUM 0.5MG/ALBUTEROL 2.5MG INH SOL UD 3ML (DUONEB) NEB SCH ×4 (07:44→18:58)
[2022-03-06 07:51] LABS: HEMOGLOBIN 12.5 g/dl (13.5-17.5); MEAN CORPUSCULAR HEMOGLOBIN 29.7 pg (27.0-33.0); MEAN CORPUSCULAR HGB CONC 32.9 g/dl (32.0-36.5); MEAN CORPUSCULAR VOLUME 90.3 fl (80.0-96.0); PLATELET COUNT, AUTOMATED 247 10^3/uL (150-450); RED BLOOD COUNT 4.21 10^6/uL (4.30-6.10); WHITE BLOOD COUNT 15.2 10^3/uL (4.0-10.0)
[2022-03-06 08:24] LABS: BLOOD UREA NITROGEN 15 MG/DL (7-18); CALCIUM LEVEL 8.9 MG/DL (8.8-10.2); CARBON DIOXIDE LEVEL 27 MEQ/L (21-32); CHLORIDE LEVEL 106 MEQ/L (98-107); CREATININE FOR GFR 0.63 MG/DL (0.70-1.30); GLOMERULAR FILTRATION RATE > 60.0 (>49); GLUCOSE, FASTING 120 MG/DL (70-100); POTASSIUM SERUM 3.8 MEQ/L (3.5-5.1); SODIUM LEVEL 137 MEQ/L (136-145)
[2022-03-06 10:00] VITALS: BP 139/82
[2022-03-06] MEDS: LACOSAMIDE 50 MG TAB (VIMPAT) PO SCH ×2 (11:01→20:07)
[2022-03-06] MEDS: DIVALPROEX 500 MG TAB PO SCH ×2 (11:01→20:08)
[2022-03-06] MEDS: ASPIRIN 81 MG CHEW TABLET PO SCH (11:01)
[2022-03-06] MEDS: ENOXAPARIN 40MG/0.4ML SYRINGE (J1650 PER 10MG) SC SCH (11:02)
[2022-03-06] MEDS: amLODIPine 5 MG TAB PO SCH (11:02)
[2022-03-06] MEDS: PARoxetine 20MG TABLET PO SCH (11:02)
[2022-03-06] MEDS: levOCARNitine ORAL SOLUTION 1,000 MG/10 ML (CARNITOR) PO SCH ×2 (11:03→20:08)
[2022-03-06 15:00] VITALS: BP 137/79
[2022-03-06 20:00] VITALS: BP 147/85
[2022-03-06] MEDS: ATORVASTATIN 20 MG TAB PO SCH (20:07)
[2022-03-07 00:47] VITALS: BP 141/78
[2022-03-07 06:00] VITALS: BP 138/83
[2022-03-07] MEDS: IPRATROPIUM 0.5MG/ALBUTEROL 2.5MG INH SOL UD 3ML (DUONEB) NEB SCH ×3 (08:00→16:00)
[2022-03-07 08:52] LABS: HEMATOCRIT 42.7 % (42.0-52.0); MEAN CORPUSCULAR HGB CONC 32.8 g/dl (32.0-36.5); MEAN CORPUSCULAR VOLUME 91.4 fl (80.0-96.0); PLATELET COUNT, AUTOMATED 300 10^3/uL (150-450); RED BLOOD COUNT 4.67 10^6/uL (4.30-6.10); WHITE BLOOD COUNT 12.8 10^3/uL (4.0-10.0)
[2022-03-07] MEDS ORDERED: FLUBLOK(EGG FREE)(QUAD)INFLUENZA VACC 0.5ML SYRINGE 18YRS & OLDER IM.IMMUN ONE (09:00)
[2022-03-07 09:27] LABS: BLOOD UREA NITROGEN 16 MG/DL (7-18); CARBON DIOXIDE LEVEL 28 MEQ/L (21-32); CHLORIDE LEVEL 104 MEQ/L (98-107); CREATININE FOR GFR 0.68 MG/DL (0.70-1.30); GLOMERULAR FILTRATION RATE > 60.0 (>49); GLUCOSE, FASTING 110 MG/DL (70-100); POTASSIUM SERUM 3.6 MEQ/L (3.5-5.1); SODIUM LEVEL 139 MEQ/L (136-145); VALPROIC ACID (DEPAKOTE) 88.4 UG/ML (50.0-100.0)
[2022-03-07] MEDS: PARoxetine 20MG TABLET PO SCH (10:20)
[2022-03-07] MEDS: LACOSAMIDE 50 MG TAB (VIMPAT) PO SCH (10:20)
[2022-03-07] MEDS: amLODIPine 5 MG TAB PO SCH (10:21)
[2022-03-07] MEDS: ASPIRIN 81 MG CHEW TABLET PO SCH (10:21)
[2022-03-07] MEDS: DIVALPROEX 500 MG TAB PO SCH ×2 (10:21→20:43)
[2022-03-07] MEDS: levOCARNitine ORAL SOLUTION 1,000 MG/10 ML (CARNITOR) PO SCH ×2 (10:22→20:43)
[2022-03-07] MEDS ORDERED: VIMP200T PO (12:10)
[2022-03-07] MEDS ORDERED: VIMP150T PO (12:10)
[2022-03-07] MEDS ORDERED: LEVO1SOL2 PO (12:10)
[2022-03-07] MEDS ORDERED: VIMP50TA3 PO ×2 (12:58→13:28)
[2022-03-07] MEDS: ENOXAPARIN 40MG/0.4ML SYRINGE (J1650 PER 10MG) SC SCH (13:14)
[2022-03-07 14:00] VITALS: BP 136/84
[2022-03-07] MEDS: ATORVASTATIN 20 MG TAB PO SCH (20:44)
[2022-03-07] MEDS ORDERED: LACOSAMIDE 50 MG TAB (VIMPAT) PO SCH (21:00)
[2022-03-07 22:00] VITALS: BP 154/92
[2022-03-08 06:00] VITALS: BP 150/92
[2022-03-08 09:15] LABS: HEMATOCRIT 40.1 % (42.0-52.0); HEMOGLOBIN 13.2 g/dl (13.5-17.5); MEAN CORPUSCULAR HEMOGLOBIN 29.9 pg (27.0-33.0); MEAN CORPUSCULAR HGB CONC 32.9 g/dl (32.0-36.5); MEAN CORPUSCULAR VOLUME 90.9 fl (80.0-96.0); PLATELET COUNT, AUTOMATED 313 10^3/uL (150-450); RED BLOOD COUNT 4.41 10^6/uL (4.30-6.10); WHITE BLOOD COUNT 9.8 10^3/uL (4.0-10.0)
[2022-03-08 09:42] LABS: BLOOD UREA NITROGEN 16 MG/DL (7-18); CALCIUM LEVEL 9.2 MG/DL (8.8-10.2); CARBON DIOXIDE LEVEL 29 MEQ/L (21-32); CHLORIDE LEVEL 106 MEQ/L (98-107); CREATININE FOR GFR 0.68 MG/DL (0.70-1.30); GLOMERULAR FILTRATION RATE > 60.0 (>49); GLUCOSE, FASTING 142 MG/DL (70-100); SODIUM LEVEL 140 MEQ/L (136-145)
[2022-03-08] MEDS: ENOXAPARIN 40MG/0.4ML SYRINGE (J1650 PER 10MG) SC SCH (10:15)
[2022-03-08] MEDS: PARoxetine 20MG TABLET PO SCH (10:15)
[2022-03-08 10:16] VITALS: BP 135/88
[2022-03-08] MEDS: DIVALPROEX 500 MG TAB PO SCH (10:16)
[2022-03-08] MEDS: amLODIPine 5 MG TAB PO SCH (10:16)
[2022-03-08] MEDS: ASPIRIN 81 MG CHEW TABLET PO SCH (10:16)
[2022-03-08] MEDS: LACOSAMIDE 50 MG TAB (VIMPAT) PO SCH (10:16)
[2022-03-08] MEDS: levOCARNitine ORAL SOLUTION 1,000 MG/10 ML (CARNITOR) PO SCH (11:39)
[2022-03-09] MEDS ORDERED: VIMP100T PO ×2 (00:49)
== END 2022-03-08 11:49 | disposition home or self-care (01) | DRG 53 ==
LOC: EDBD 08:39 → M ED 08:39 → M ED INP 11:10 → ENRESERV 12:56 → M ICU 13:30 → M MSPAV 03-07 00:45
PROVIDERS: ADMIT Internal Medicine; ATTEND Internal Medicine
PROC: 5A1945Z Respiratory Ventilation, 24-96 Consecutive Hours (ICD-10-PCS; principal; 2022-03-02)
PROC: 02HV33Z Insertion of Infusion Device into Superior Vena Cava, Percutaneous Approach (ICD-10-PCS; 2022-03-02)
DX: G40.901 Epilepsy, unspecified, not intractable, with status epilepticus (principal); J96.01 Acute respiratory failure with hypoxia; E72.20 Disorder of urea cycle metabolism, unspecified; E87.20 Acidosis, unspecified; I24.8 Other forms of acute ischemic heart disease; E78.00 Pure hypercholesterolemia, unspecified; I10 Essential (primary) hypertension; Z91.14 Patient's other noncompliance with medication regimen; Z86.73 Personal history of transient ischemic attack (TIA), and cerebral infarction without residual deficits; E78.5 Hyperlipidemia, unspecified; F32.A Depression, unspecified; D72.829 Elevated white blood cell count, unspecified; Z79.82 Long term (current) use of aspirin; Z79.899 Other long term (current) drug therapy; Z88.8 Allergy status to other drugs, medicaments and biological substances; Z96.653 Presence of artificial knee joint, bilateral; Z87.891 Personal history of nicotine dependence; F12.90 Cannabis use, unspecified, uncomplicated

== ENCOUNTER → 2022-03-30 | Outpatient (CLI) | payer BC ==
[~2022-03-30] MED LIST changes: +LACO150T PO; +LEVO1SOL2 PO; +VIMP100T PO; +VIMP200T PO; +VIMP50TA3 PO
[2022-03-30 14:47] LABS: BASO # 0.1 10^3/uL (0.0-0.2); BASO % 0.7 % (0.0-1.0); EOS # 0.2 10^3/uL (0.0-0.5); EOS % 2.5 % (0.0-3.0); HEMATOCRIT 42.5 % (42.0-52.0); HEMOGLOBIN 13.6 g/dl (13.5-17.5); LYMPH # 3.1 10^3/uL (1.5-5.0); LYMPH % 46.9 % (24.0-44.0); MEAN CORPUSCULAR HEMOGLOBIN 29.7 pg (27.0-33.0); MEAN CORPUSCULAR VOLUME 92.8 fl (80.0-96.0); MONO # 0.6 10^3/uL (0.0-0.8); MONO % 8.5 % (2.0-8.0); NEUTROPHILS # 2.7 10^3/uL (1.5-8.5); NEUTROPHILS % 41.1 % (36.0-66.0); PLATELET COUNT, AUTOMATED 265 10^3/uL (150-450); RED BLOOD COUNT 4.58 10^6/uL (4.30-6.10); WHITE BLOOD COUNT 6.7 10^3/uL (4.0-10.0)
[2022-03-30 17:56] LABS: ALBUMIN 3.6 G/DL (3.2-5.2); ALT/SGPT 17 U/L (7.0-40); BILIRUBIN,TOTAL 0.3 MG/DL (0.3-1.2); BLOOD UREA NITROGEN 14 MG/DL (9-23); CALCIUM LEVEL 8.7 MG/DL (8.3-10.6); CARBON DIOXIDE LEVEL 26 MMOL/L (20-31); CHLORIDE LEVEL 105 MMOL/L (98-107); CREATININE FOR GFR 0.59 MG/DL (0.70-1.30); GLOMERULAR FILTRATION RATE > 60.0 (>49); GLUCOSE, FASTING 127 MG/DL (74-106); SODIUM LEVEL 140 MMOL/L (136-145); TOTAL PROTEIN 6.3 G/DL (5.7-8.2); VALPROIC ACID (DEPAKOTE) 80.3 UG/ML (50.0-100.0)
== END ==
LOC: M LAB 13:12 → M PLALAB 13:12
PROVIDERS: ATTEND Psychiatry & Neurology Neurology
DX: R56.9 Unspecified convulsions (principal)

== ENCOUNTER → 2022-04-26 | Outpatient (CLI) | payer BC ==
[2022-04-26 14:35] LABS: ALBUMIN 3.9 G/DL (3.2-5.2); ALKALINE PHOSPHATASE 70 U/L (46-116); ALT/SGPT 46 U/L (7.0-40); AST/SGOT 36 U/L (<34); BILIRUBIN,TOTAL 0.5 MG/DL (0.3-1.2); BLOOD UREA NITROGEN 13 MG/DL (9-23); CALCIUM LEVEL 9.1 MG/DL (8.3-10.6); CARBON DIOXIDE LEVEL 26 MMOL/L (20-31); CHLORIDE LEVEL 105 MMOL/L (98-107); CHOLESTEROL LEVEL 129 MG/DL (<200); CHOLESTEROL RISK RATIO 2.31 (<5); CREATININE FOR GFR 0.68 MG/DL (0.70-1.30); GLOMERULAR FILTRATION RATE > 60.0 (>49); GLUCOSE, FASTING 89 MG/DL (74-106); HDL CHOLESTEROL 55.8 MG/DL (>40); LDL CHOLESTEROL 46.8 MG/DL (<100); NON-HDL-C 73 MG/DL; SODIUM LEVEL 138 MMOL/L (136-145); TOTAL PROTEIN 6.6 G/DL (5.7-8.2); TRIGLYCERIDES LEVEL 132 MG/DL (<150)
== END ==
LOC: M PLALAB 09:38
PROVIDERS: ATTEND Nurse Practitioner Family
DX: I10 Essential (primary) hypertension (principal)

== ENCOUNTER → 2022-06-08 | Outpatient (CLI) | payer BC ==
[2022-06-08 10:45] LABS: BASO # 0.1 10^3/uL (0.0-0.2); BASO % 0.8 % (0.0-1.0); EOS # 0.3 10^3/uL (0.0-0.5); EOS % 3.4 % (0.0-3.0); HEMATOCRIT 43.4 % (42.0-52.0); LYMPH # 3.1 10^3/uL (1.5-5.0); LYMPH % 39.9 % (24.0-44.0); MEAN CORPUSCULAR HEMOGLOBIN 30.5 pg (27.0-33.0); MEAN CORPUSCULAR HGB CONC 32.3 g/dl (32.0-36.5); MEAN CORPUSCULAR VOLUME 94.6 fl (80.0-96.0); MONO # 0.8 10^3/uL (0.0-0.8); MONO % 9.8 % (2.0-8.0); NEUTROPHILS # 3.5 10^3/uL (1.5-8.5); NEUTROPHILS % 45.7 % (36.0-66.0); PLATELET COUNT, AUTOMATED 215 10^3/uL (150-450); RED BLOOD COUNT 4.59 10^6/uL (4.30-6.10); WHITE BLOOD COUNT 7.7 10^3/uL (4.0-10.0)
[2022-06-08 11:10] LABS: VALPROIC ACID (DEPAKOTE) 78.1 UG/ML (50.0-100.0)
[2022-06-08 11:12] LABS: ALBUMIN 3.6 G/DL (3.2-5.2); ALKALINE PHOSPHATASE 66 U/L (46-116); ALT/SGPT 38 U/L (7.0-40); AST/SGOT 23 U/L (<34); BILIRUBIN,TOTAL 0.4 MG/DL (0.3-1.2); BLOOD UREA NITROGEN 11 MG/DL (9-23); CALCIUM LEVEL 8.7 MG/DL (8.3-10.6); CARBON DIOXIDE LEVEL 26 MMOL/L (20-31); CHLORIDE LEVEL 107 MMOL/L (98-107); CREATININE FOR GFR 0.62 MG/DL (0.70-1.30); GLOMERULAR FILTRATION RATE > 60.0 (>49); GLUCOSE, FASTING 91 MG/DL (74-106); POTASSIUM SERUM 4.3 MMOL/L (3.5-5.1); SODIUM LEVEL 140 MMOL/L (136-145); TOTAL PROTEIN 6.1 G/DL (5.7-8.2)
== END ==
LOC: M LAB 09:52
PROVIDERS: ATTEND Psychiatry & Neurology Neurology
DX: R56.9 Unspecified convulsions (principal)

== ENCOUNTER 2022-06-21 03:19 | Inpatient (IN) | payer BC ==
[~2022-06-21] VITALS: Ht 180.3 cm; Wt 86.0 kg
[2022-06-21] MEDS ORDERED: MIDAZOLAM INJ 2MG/2ML VIAL IV ONE (03:30)
[2022-06-21] MEDS ORDERED: MIDAZOLAM 5MG/ML 1ML VIAL IM ONE (03:40)
[2022-06-21] MEDS ORDERED: LACOSAMIDE 10MG/ML 20ML VIAL (VIMPAT) IV STA (04:11)
[2022-06-21 04:28] LABS: BASO # 0.1 10^3/uL (0.0-0.2); BASO % 0.4 % (0.0-1.0); EOS # 0.1 10^3/uL (0.0-0.5); EOS % 0.3 % (0.0-3.0); HEMATOCRIT 46.7 % (42.0-52.0); LYMPH # 1.9 10^3/uL (1.5-5.0); LYMPH % 12.1 % (24.0-44.0); MEAN CORPUSCULAR HEMOGLOBIN 30.7 pg (27.0-33.0); MEAN CORPUSCULAR HGB CONC 32.1 g/dl (32.0-36.5); MEAN CORPUSCULAR VOLUME 95.5 fl (80.0-96.0); MONO # 1.4 10^3/uL (0.0-0.8); MONO % 8.5 % (2.0-8.0); NEUTROPHILS # 12.3 10^3/uL (1.5-8.5); NEUTROPHILS % 77.4 % (36.0-66.0); PLATELET COUNT, AUTOMATED 283 10^3/uL (150-450); RED BLOOD COUNT 4.89 10^6/uL (4.30-6.10); WHITE BLOOD COUNT 15.9 10^3/uL (4.0-10.0)
[2022-06-21 04:50] LABS: RSV AMPLIFICATION NEGATIVE (NEGATIVE)
[2022-06-21 04:56] LABS: ALBUMIN 3.7 G/DL (3.2-5.2); ALKALINE PHOSPHATASE 79 U/L (46-116); ALT/SGPT 41 U/L (7.0-40); AST/SGOT 29 U/L (<34); BILIRUBIN,TOTAL 0.4 MG/DL (0.3-1.2); BLOOD UREA NITROGEN 10 MG/DL (9-23); CALCIUM LEVEL 8.6 MG/DL (8.3-10.6); CARBON DIOXIDE LEVEL 16 MMOL/L (20-31); CHLORIDE LEVEL 104 MMOL/L (98-107); CREATININE FOR GFR 0.78 MG/DL (0.70-1.30); GLOMERULAR FILTRATION RATE > 60.0 (>49); GLUCOSE, FASTING 236 MG/DL (74-106); MAGNESIUM LEVEL 2.1 MG/DL (1.8-2.4); POTASSIUM SERUM 4.1 MMOL/L (3.5-5.1); SODIUM LEVEL 139 MMOL/L (136-145)
[2022-06-21 06:16] LABS: CPK CREATINE PHOSPHOKINASE 127 U/L (46-171); TOTAL PROTEIN 6.6 G/DL (5.7-8.2)
[2022-06-21] MEDS ORDERED: VALPROATE SOD INJ 1,000 MG in D5W 50 ML IV ONE (06:40)
[2022-06-21 07:26] LABS: VENOUS HCO3 23.8 MEQ/L (23.0-27.0); VENOUS PARTIAL PRESSURE CO2 36.4 mmHg (38.0-50.0); VENOUS PARTIAL PRESSURE O2 86.1 mmHg (30.0-50.0); VENOUS PH 7.433 UNITS (7.330-7.430); VENOUS STANDARD HCO3 24.5 MEQ/L; VENOUS TOTAL CO2 24.9 MEQ/L (24.0-28.0)
[2022-06-21] MEDS ORDERED: NS 2,580 ML in IV 1 EA IV ONE (08:00)
[2022-06-21] MEDS: PARoxetine 20MG TABLET PO SCH (09:00)
[2022-06-21] MEDS: ASPIRIN 81MG ENTERIC TABLET PO SCH (09:00)
[2022-06-21] MEDS: amLODIPine 5 MG TAB PO SCH (09:00)
[2022-06-21] MEDS ORDERED: VIMP200T PO (16:01)
[2022-06-21] MEDS ORDERED: LEVO330T3 PO (16:01)
[2022-06-21] MEDS ORDERED: HOME MED LIST COMPLETE! XX SCH (16:05)
[2022-06-21] MEDS ORDERED: **NOTE PATIENT COMMENT** MISC XX SCH (17:25)
[2022-06-21] MEDS ORDERED: LORazepam 2 MG/ML 1ML VIAL IV PRN (17:40)
[2022-06-21 20:35] VITALS: BP 121/76
[2022-06-21] MEDS ORDERED: LORazepam 2 MG/ML 1ML VIAL IM PRN (20:50)
[2022-06-21] MEDS: levOCARNitine ORAL SOLUTION 1,000MG/10ML (CARNITOR) PO SCH (21:00)
[2022-06-21] MEDS ORDERED: LACOSAMIDE 50 MG TAB (VIMPAT) PO SCH (21:00)
[2022-06-21] MEDS ORDERED: ATORVASTATIN 20 MG TAB PO SCH (21:00)
[2022-06-21] MEDS ORDERED: DIVALPROEX 500 MG TAB PO SCH (21:00)
[2022-06-22 06:19] LABS: HEMATOCRIT 40.4 % (42.0-52.0); HEMOGLOBIN 13.5 g/dl (13.5-17.5); MEAN CORPUSCULAR HEMOGLOBIN 30.6 pg (27.0-33.0); MEAN CORPUSCULAR HGB CONC 33.4 g/dl (32.0-36.5); MEAN CORPUSCULAR VOLUME 91.6 fl (80.0-96.0); PLATELET COUNT, AUTOMATED 232 10^3/uL (150-450); RED BLOOD COUNT 4.41 10^6/uL (4.30-6.10); WHITE BLOOD COUNT 10.3 10^3/uL (4.0-10.0)
[2022-06-22 06:37] VITALS: BP 114/51
[2022-06-22 06:50] LABS: BLOOD UREA NITROGEN 9 MG/DL (9-23); CALCIUM LEVEL 8.6 MG/DL (8.3-10.6); CARBON DIOXIDE LEVEL 27 MMOL/L (20-31); CHLORIDE LEVEL 107 MMOL/L (98-107); CREATININE FOR GFR 0.78 MG/DL (0.70-1.30); GLOMERULAR FILTRATION RATE > 60.0 (>49); GLUCOSE, FASTING 91 MG/DL (74-106); POTASSIUM SERUM 3.8 MMOL/L (3.5-5.1); SODIUM LEVEL 141 MMOL/L (136-145)
[2022-06-22] MEDS ORDERED: DIVALPROEX 500 MG TAB PO SCH (09:00)
[2022-06-22] MEDS ORDERED: LACOSAMIDE 50 MG TAB (VIMPAT) PO SCH (09:00)
[2022-06-22] MEDS: PARoxetine 20MG TABLET PO SCH (10:48)
[2022-06-22] MEDS: levOCARNitine ORAL SOLUTION 1,000MG/10ML (CARNITOR) PO SCH (10:48)
[2022-06-22] MEDS: ASPIRIN 81MG ENTERIC TABLET PO SCH (10:49)
[2022-06-22 10:53] VITALS: BP 113/64
[2022-06-22] MEDS: amLODIPine 5 MG TAB PO SCH (10:53)
[2022-06-22] MEDS ORDERED: ONDA4TAB6 PO (11:38)
== END 2022-06-22 16:30 | disposition home or self-care (01) | DRG 53 ==
LOC: EDBD 03:19 → M ED 03:19 → M ED INP 17:18 → M MS5PR 20:35
PROVIDERS: ADMIT Family Medicine; ATTEND Student in an Organized Health Care Education/Training Program
DX: R56.9 Unspecified convulsions (principal); F03.90 Unspecified dementia, unspecified severity, without behavioral disturbance, psychotic disturbance, mood disturbance, and anxiety; F32.A Depression, unspecified; I10 Essential (primary) hypertension; E78.5 Hyperlipidemia, unspecified; Z86.73 Personal history of transient ischemic attack (TIA), and cerebral infarction without residual deficits; Z79.899 Other long term (current) drug therapy; Z79.82 Long term (current) use of aspirin; Z88.8 Allergy status to other drugs, medicaments and biological substances; Z96.653 Presence of artificial knee joint, bilateral; Z87.891 Personal history of nicotine dependence; Z91.14 Patient's other noncompliance with medication regimen

== ENCOUNTER 2022-08-22 11:36 | Inpatient (IN) | payer BC ==
[~2022-08-22] VITALS: Ht 177.8 cm; Wt 85.7 kg
[~2022-08-22 11:36] MED LIST changes: +LEVO330T3 PO; +ONDA4TAB6 PO
[2022-08-22] MEDS ORDERED: VALPROATE SOD INJ 500 MG in D5W 50 ML IV ONE (11:50)
[2022-08-22 12:07] LABS: BASO # 0.2 10^3/uL (0.0-0.2); BASO % 0.8 % (0.0-1.0); EOS # 0.2 10^3/uL (0.0-0.5); EOS % 0.9 % (0.0-3.0); HEMATOCRIT 46.2 % (42.0-52.0); HEMOGLOBIN 14.7 g/dl (13.5-17.5); LYMPH # 3.4 10^3/uL (1.5-5.0); LYMPH % 14.7 % (24.0-44.0); MEAN CORPUSCULAR HEMOGLOBIN 30.9 pg (27.0-33.0); MEAN CORPUSCULAR HGB CONC 31.8 g/dl (32.0-36.5); MEAN CORPUSCULAR VOLUME 97.3 fl (80.0-96.0); MONO % 8.5 % (2.0-8.0); NEUTROPHILS # 16.8 10^3/uL (1.5-8.5); NEUTROPHILS % 72.5 % (36.0-66.0); PLATELET COUNT, AUTOMATED 345 10^3/uL (150-450); RED BLOOD COUNT 4.75 10^6/uL (4.30-6.10); WHITE BLOOD COUNT 23.1 10^3/uL (4.0-10.0)
[2022-08-22 12:32] LABS: VALPROIC ACID (DEPAKOTE) 53.4 UG/ML (50.0-100.0)
[2022-08-22 12:33] LABS: BLOOD UREA NITROGEN 15 MG/DL (9-23); CALCIUM LEVEL 8.8 MG/DL (8.3-10.6); CARBON DIOXIDE LEVEL 16 MMOL/L (20-31); CHLORIDE LEVEL 103 MMOL/L (98-107); CREATININE FOR GFR 0.94 MG/DL (0.70-1.30); GLOMERULAR FILTRATION RATE > 60.0 (>49); GLUCOSE, FASTING 231 MG/DL (74-106); SODIUM LEVEL 138 MMOL/L (136-145)
[2022-08-22] MEDS ORDERED: OXCA300T14 PO (12:39)
[2022-08-22] MEDS ORDERED: LEVO330T6 PO (12:40)
[2022-08-22 13:00] LABS: RSV AMPLIFICATION NEGATIVE (NEGATIVE)
[2022-08-22 14:39] LABS: ABG BASE EXCESS -2.6 (-2.0-2.0); ABG HCO3 21.2 MEQ/L (22.0-26.0); ABG O2 SATURATION 97.1 % (95.0-99.0); ABG PARTIAL PRESSURE CO2 33.9 mmHg (35.0-45.0); ABG PARTIAL PRESSURE O2 89.4 mmHg (75.0-100.0); ABG STANDARD HCO3 22.3 MEQ/L (22.0-26.0); ABG TOTAL CO2 22.2 MEQ/L (23.0-31.0); ABG pH (ARTERIAL) 7.413 UNITS (7.350-7.450)
[2022-08-22 14:44] LABS: ALBUMIN 3.6 G/DL (3.2-5.2); ALKALINE PHOSPHATASE 91 U/L (46-116); ALT/SGPT 25 U/L (7.0-40); AST/SGOT 21 U/L (<34); BILIRUBIN,DIRECT 0.1 MG/DL (<0.4); BILIRUBIN,TOTAL 0.3 MG/DL (0.3-1.2); TOTAL PROTEIN 6.9 G/DL (5.7-8.2)
[2022-08-22] MEDS ORDERED: ISOVUE-370 76% 100ML VIAL As Ordered ONE ×2 (15:38→19:28)
[2022-08-22] MEDS ORDERED: HOME MED LIST COMPLETE! XX SCH (15:40)
[2022-08-22] MEDS ORDERED: PIPERACILLIN/TAZOBACTAM SOD 3.375 GM in D5W MINI-BAG PLUS 50 ML IV ONE (19:00)
[2022-08-22 20:05] VITALS: BP 145/69
[2022-08-22] MEDS: OXcarbazepine 300 MG TAB PO SCH (21:00)
[2022-08-22] MEDS: ATORVASTATIN 20 MG TAB PO SCH (21:00)
[2022-08-22] MEDS ORDERED: LACOSAMIDE 10MG/ML 20ML VIAL (VIMPAT) IV STA (21:10)
[2022-08-22] MEDS ORDERED: VALPROATE SOD INJ 1,000 MG in D5W 50 ML IV SCH (21:10)
[2022-08-22] MEDS: VALPROATE SOD INJ 1,000 MG in D5W 50 ML IV SCH (22:47)
[2022-08-23] VITALS (7 sets, daily range): BP systolic 121–150; BP diastolic 58–89
[2022-08-23 01:10] LABS: AMPHETAMINES LEVEL URINE NEGATIVE (NEGATIVE); BARBITURATES URINE NEGATIVE (NEGATIVE); COCAINE METABOLITE URINE NEGATIVE (NEGATIVE); METHADONE URINE NEGATIVE (NEGATIVE); OPIATES URINE NEGATIVE (NEGATIVE); PHENCYCLIDINE URINE NEGATIVE (NEGATIVE)
[2022-08-23 01:11] LABS: BENZODIAZEPINES URINE POSITIVE (NEGATIVE); CANNABINOIDS URINE POSITIVE (NEGATIVE)
[2022-08-23] MEDS: PIPERACILLIN/TAZOBACTAM SOD 3.375 GM in D5W MINI-BAG PLUS 50 ML IV SCH ×4 (02:01→22:00)
[2022-08-23 06:12] LABS: BASO % 0.3 % (0.0-1.0); EOS % 0.1 % (0.0-3.0); HEMATOCRIT 41.4 % (42.0-52.0); HEMOGLOBIN 13.7 g/dl (13.5-17.5); LYMPH # 3.2 10^3/uL (1.5-5.0); LYMPH % 22.8 % (24.0-44.0); MEAN CORPUSCULAR HEMOGLOBIN 30.6 pg (27.0-33.0); MEAN CORPUSCULAR HGB CONC 33.1 g/dl (32.0-36.5); MEAN CORPUSCULAR VOLUME 92.4 fl (80.0-96.0); MONO % 12.3 % (2.0-8.0); NEUTROPHILS # 9.1 10^3/uL (1.5-8.5); NEUTROPHILS % 64.1 % (36.0-66.0); PLATELET COUNT, AUTOMATED 265 10^3/uL (150-450); RED BLOOD COUNT 4.48 10^6/uL (4.30-6.10); WHITE BLOOD COUNT 14.2 10^3/uL (4.0-10.0)
[2022-08-23 06:36] LABS: BLOOD UREA NITROGEN 8 MG/DL (9-23); CALCIUM LEVEL 8.7 MG/DL (8.3-10.6); CARBON DIOXIDE LEVEL 24 MMOL/L (20-31); CHLORIDE LEVEL 106 MMOL/L (98-107); CREATININE FOR GFR 0.75 MG/DL (0.70-1.30); GLOMERULAR FILTRATION RATE > 60.0 (>49); GLUCOSE, FASTING 95 MG/DL (74-106); MAGNESIUM LEVEL 1.9 MG/DL (1.8-2.4); SODIUM LEVEL 138 MMOL/L (136-145)
[2022-08-23 08:40] LABS: MONO # 1.8 10^3/uL (0.0-0.8)
[2022-08-23] MEDS ORDERED: DIVALPROEX 500 MG TAB PO SCH ×2 (09:00→21:00)
[2022-08-23] MEDS: PARoxetine 20MG TABLET PO SCH (09:00)
[2022-08-23] MEDS: OXcarbazepine 300 MG TAB PO SCH ×2 (09:00→22:09)
[2022-08-23] MEDS: ASPIRIN 81MG ENTERIC TABLET PO SCH (09:00)
[2022-08-23] MEDS: VALPROATE SOD INJ 500 MG in D5W 50 ML IV SCH (09:27)
[2022-08-23] MEDS: LACOSAMIDE 10MG/ML 20ML VIAL (VIMPAT) IV SCH ×2 (09:27→22:00)
[2022-08-23] MEDS: ENOXAPARIN 40MG/0.4ML SYRINGE (J1650 PER 10MG) SC SCH ×3 (09:33→19:31)
[2022-08-23] MEDS: ATORVASTATIN 20 MG TAB PO SCH (21:00)
[2022-08-23] MEDS: levOCARNitine ORAL SOLUTION 1,000MG/10ML (CARNITOR) PO SCH (22:00)
[2022-08-23] MEDS: VALPROATE SOD INJ 1,000 MG in D5W 50 ML IV SCH (23:14)
[2022-08-24 03:49] VITALS: BP 118/60
[2022-08-24] MEDS: PIPERACILLIN/TAZOBACTAM SOD 3.375 GM in D5W MINI-BAG PLUS 50 ML IV SCH ×4 (03:57→20:45)
[2022-08-24 08:00] VITALS: BP 107/52
[2022-08-24] MEDS ORDERED: ASPIRIN 300 MG SUPP PR SCH (09:00)
[2022-08-24] MEDS: PARoxetine 20MG TABLET PO SCH (09:37)
[2022-08-24] MEDS: ENOXAPARIN 40MG/0.4ML SYRINGE (J1650 PER 10MG) SC SCH (09:37)
[2022-08-24] MEDS: ASPIRIN 81MG ENTERIC TABLET PO SCH (09:37)
[2022-08-24] MEDS: levOCARNitine ORAL SOLUTION 1,000MG/10ML (CARNITOR) PO SCH ×2 (09:38→20:44)
[2022-08-24] MEDS: LACOSAMIDE 10MG/ML 20ML VIAL (VIMPAT) IV SCH (09:40)
[2022-08-24 09:55] LABS: BASO # 0.1 10^3/uL (0.0-0.2); BASO % 0.6 % (0.0-1.0); EOS % 0.5 % (0.0-3.0); HEMATOCRIT 42.5 % (42.0-52.0); HEMOGLOBIN 14.3 g/dl (13.5-17.5); LYMPH # 2.3 10^3/uL (1.5-5.0); LYMPH % 26.2 % (24.0-44.0); MEAN CORPUSCULAR HEMOGLOBIN 30.7 pg (27.0-33.0); MEAN CORPUSCULAR HGB CONC 33.6 g/dl (32.0-36.5); MEAN CORPUSCULAR VOLUME 91.2 fl (80.0-96.0); MONO # 1.1 10^3/uL (0.0-0.8); MONO % 12.3 % (2.0-8.0); NEUTROPHILS # 5.3 10^3/uL (1.5-8.5); NEUTROPHILS % 59.8 % (36.0-66.0); PLATELET COUNT, AUTOMATED 255 10^3/uL (150-450); RED BLOOD COUNT 4.66 10^6/uL (4.30-6.10); WHITE BLOOD COUNT 8.8 10^3/uL (4.0-10.0)
[2022-08-24] MEDS: VALPROATE SOD INJ 500 MG in D5W 50 ML IV SCH (10:18)
[2022-08-24 10:34] LABS: BLOOD UREA NITROGEN 16 MG/DL (9-23); CALCIUM LEVEL 8.9 MG/DL (8.3-10.6); CARBON DIOXIDE LEVEL 24 MMOL/L (20-31); CHLORIDE LEVEL 107 MMOL/L (98-107); GLOMERULAR FILTRATION RATE > 60.0 (>49); GLUCOSE, FASTING 102 MG/DL (74-106); MAGNESIUM LEVEL 2.1 MG/DL (1.8-2.4); POTASSIUM SERUM 4.1 MMOL/L (3.5-5.1); SODIUM LEVEL 140 MMOL/L (136-145)
[2022-08-24] MEDS: OXcarbazepine 300 MG TAB PO SCH ×2 (11:00→20:44)
[2022-08-24 12:00] VITALS: BP 122/78
[2022-08-24 15:32] VITALS: BP 137/68
[2022-08-24] MEDS: ATORVASTATIN 20 MG TAB PO SCH (20:44)
[2022-08-24 20:47] VITALS: BP 135/70
[2022-08-24] MEDS ORDERED: DIVALPROEX 500 MG TAB PO SCH ×2 (21:00)
[2022-08-25] MEDS: PIPERACILLIN/TAZOBACTAM SOD 3.375 GM in D5W MINI-BAG PLUS 50 ML IV SCH ×2 (02:38→09:52)
[2022-08-25 05:50] VITALS: BP 134/71
[2022-08-25 06:45] LABS: BASO # 0.1 10^3/uL (0.0-0.2); BASO % 0.7 % (0.0-1.0); EOS # 0.2 10^3/uL (0.0-0.5); EOS % 1.8 % (0.0-3.0); HEMATOCRIT 42.8 % (42.0-52.0); HEMOGLOBIN 14.2 g/dl (13.5-17.5); LYMPH # 3.7 10^3/uL (1.5-5.0); LYMPH % 45.5 % (24.0-44.0); MEAN CORPUSCULAR HEMOGLOBIN 30.9 pg (27.0-33.0); MEAN CORPUSCULAR HGB CONC 33.2 g/dl (32.0-36.5); MONO # 0.9 10^3/uL (0.0-0.8); MONO % 10.6 % (2.0-8.0); NEUTROPHILS # 3.3 10^3/uL (1.5-8.5); NEUTROPHILS % 40.9 % (36.0-66.0); PLATELET COUNT, AUTOMATED 244 10^3/uL (150-450); WHITE BLOOD COUNT 8.2 10^3/uL (4.0-10.0)
[2022-08-25 07:24] LABS: BLOOD UREA NITROGEN 17 MG/DL (9-23); CALCIUM LEVEL 8.5 MG/DL (8.3-10.6); CARBON DIOXIDE LEVEL 26 MMOL/L (20-31); CHLORIDE LEVEL 105 MMOL/L (98-107); CREATININE FOR GFR 0.73 MG/DL (0.70-1.30); GLOMERULAR FILTRATION RATE > 60.0 (>49); GLUCOSE, FASTING 84 MG/DL (74-106); MAGNESIUM LEVEL 2.1 MG/DL (1.8-2.4); POTASSIUM SERUM 3.8 MMOL/L (3.5-5.1); SODIUM LEVEL 140 MMOL/L (136-145)
[2022-08-25] MEDS ORDERED: DIVALPROEX 500 MG TAB PO SCH ×2 (09:00)
[2022-08-25] MEDS ORDERED: OXCA300T14 PO (09:40)
[2022-08-25] MEDS: levOCARNitine ORAL SOLUTION 1,000MG/10ML (CARNITOR) PO SCH (09:51)
[2022-08-25] MEDS: OXcarbazepine 300 MG TAB PO SCH (09:52)
[2022-08-25] MEDS: PARoxetine 20MG TABLET PO SCH (09:52)
[2022-08-25] MEDS: ASPIRIN 81MG ENTERIC TABLET PO SCH (09:52)
[2022-08-25] MEDS ORDERED: AMOX875T2 PO (10:17)
[2022-08-25] MEDS ORDERED: DOXY-444 PO (10:17)
== END 2022-08-25 14:51 | disposition home or self-care (01) | DRG 53 ==
LOC: M ED 11:36 → EDBD 11:36 → M ED INP 15:46 → M PCU 20:16 → M MSPAV 08-24 15:21
PROVIDERS: ADMIT Internal Medicine; ATTEND Internal Medicine
DX: G40.901 Epilepsy, unspecified, not intractable, with status epilepticus (principal); E87.20 Acidosis, unspecified; I69.351 Hemiplegia and hemiparesis following cerebral infarction affecting right dominant side; I10 Essential (primary) hypertension; F32.A Depression, unspecified; E78.5 Hyperlipidemia, unspecified; Z96.653 Presence of artificial knee joint, bilateral; F17.210 Nicotine dependence, cigarettes, uncomplicated; Z79.82 Long term (current) use of aspirin; Z79.899 Other long term (current) drug therapy; Z88.8 Allergy status to other drugs, medicaments and biological substances; Z95.5 Presence of coronary angioplasty implant and graft; G93.41 Metabolic encephalopathy

== ENCOUNTER → 2022-09-06 | Outpatient (CLI) | payer BC ==
[~2022-09-06] MED LIST changes: +DOXY-444 PO; +LEVO330T6 PO; +OXCA300T14 PO
[2022-09-06 13:47] LABS: BASO # 0.1 10^3/uL (0.0-0.2); BASO % 0.7 % (0.0-1.0); EOS # 0.2 10^3/uL (0.0-0.5); EOS % 2.6 % (0.0-3.0); HEMATOCRIT 42.5 % (42.0-52.0); HEMOGLOBIN 13.8 g/dl (13.5-17.5); LYMPH # 3.5 10^3/uL (1.5-5.0); LYMPH % 40.3 % (24.0-44.0); MEAN CORPUSCULAR HEMOGLOBIN 30.7 pg (27.0-33.0); MEAN CORPUSCULAR HGB CONC 32.5 g/dl (32.0-36.5); MEAN CORPUSCULAR VOLUME 94.4 fl (80.0-96.0); MONO # 0.6 10^3/uL (0.0-0.8); MONO % 6.7 % (2.0-8.0); NEUTROPHILS # 4.3 10^3/uL (1.5-8.5); NEUTROPHILS % 49.1 % (36.0-66.0); PLATELET COUNT, AUTOMATED 285 10^3/uL (150-450); WHITE BLOOD COUNT 8.7 10^3/uL (4.0-10.0)
[2022-09-06 14:06] LABS: VALPROIC ACID (DEPAKOTE) 82.1 UG/ML (50.0-100.0)
[2022-09-06 14:07] LABS: ALBUMIN 3.5 G/DL (3.2-5.2); ALKALINE PHOSPHATASE 71 U/L (46-116); ALT/SGPT 29 U/L (7.0-40); AST/SGOT 11 U/L (<34); BILIRUBIN,TOTAL 0.3 MG/DL (0.3-1.2); BLOOD UREA NITROGEN 11 MG/DL (9-23); CALCIUM LEVEL 8.5 MG/DL (8.3-10.6); CARBON DIOXIDE LEVEL 27 MMOL/L (20-31); CHLORIDE LEVEL 104 MMOL/L (98-107); CREATININE FOR GFR 0.62 MG/DL (0.70-1.30); GLOMERULAR FILTRATION RATE > 60.0 (>49); GLUCOSE, FASTING 109 MG/DL (74-106); POTASSIUM SERUM 4.4 MMOL/L (3.5-5.1); SODIUM LEVEL 138 MMOL/L (136-145)
== END ==
LOC: M LAB 12:51
PROVIDERS: ATTEND Psychiatry & Neurology Neurology
DX: R56.9 Unspecified convulsions (principal); Z79.899 Other long term (current) drug therapy

== ENCOUNTER 2022-10-24 20:40 | Emergency (ER) | payer BC ==
[2022-10-24 21:14] LABS: BASO # 0.1 10^3/uL (0.0-0.2); BASO % 0.6 % (0.0-1.0); EOS # 0.2 10^3/uL (0.0-0.5); HEMATOCRIT 41.4 % (42.0-52.0); HEMOGLOBIN 13.9 g/dl (13.5-17.5); LYMPH # 2.8 10^3/uL (1.5-5.0); LYMPH % 35.1 % (24.0-44.0); MEAN CORPUSCULAR HEMOGLOBIN 31.2 pg (27.0-33.0); MEAN CORPUSCULAR HGB CONC 33.6 g/dl (32.0-36.5); MONO # 0.8 10^3/uL (0.0-0.8); MONO % 9.6 % (2.0-8.0); NEUTROPHILS % 50.9 % (36.0-66.0); PLATELET COUNT, AUTOMATED 320 10^3/uL (150-450); RED BLOOD COUNT 4.45 10^6/uL (4.30-6.10); WHITE BLOOD COUNT 7.9 10^3/uL (4.0-10.0)
[2022-10-24 21:35] LABS: VALPROIC ACID (DEPAKOTE) 40.4 UG/ML (50.0-100.0)
[2022-10-24 21:51] LABS: ALBUMIN 3.4 G/DL (3.2-5.2); ALKALINE PHOSPHATASE 86 U/L (46-116); ALT/SGPT 22 U/L (7.0-40); AST/SGOT 17 U/L (<34); BILIRUBIN,DIRECT < 0.1 MG/DL (<0.4); BILIRUBIN,TOTAL 0.2 MG/DL (0.3-1.2); BLOOD UREA NITROGEN 12 MG/DL (9-23); CALCIUM LEVEL 8.7 MG/DL (8.3-10.6); CARBON DIOXIDE LEVEL 23 MMOL/L (20-31); CHLORIDE LEVEL 107 MMOL/L (98-107); CREATININE FOR GFR 0.65 MG/DL (0.70-1.30); GLOMERULAR FILTRATION RATE > 60.0 (>49); GLUCOSE, FASTING 102 MG/DL (74-106); MAGNESIUM LEVEL 1.9 MG/DL (1.8-2.4); POTASSIUM SERUM 4.5 MMOL/L (3.5-5.1); SODIUM LEVEL 140 MMOL/L (136-145)
[2022-10-24] MEDS ORDERED: VALPROATE SOD INJ 1,000 MG in D5W 50 ML IV ONE (22:15)
[2022-10-24 22:40] LABS: RSV AMPLIFICATION NEGATIVE (NEGATIVE)
[2022-10-24 23:30] VITALS: BP 131/75; TEMP 98.1; O2SAT 95
[2022-10-24 23:35] LABS: AMPHETAMINES LEVEL URINE NEGATIVE (NEGATIVE); BARBITURATES URINE NEGATIVE (NEGATIVE); BENZODIAZEPINES URINE NEGATIVE (NEGATIVE); COCAINE METABOLITE URINE NEGATIVE (NEGATIVE); METHADONE URINE NEGATIVE (NEGATIVE); OPIATES URINE NEGATIVE (NEGATIVE); PHENCYCLIDINE URINE NEGATIVE (NEGATIVE)
[2022-10-24 23:44] LABS: CANNABINOIDS URINE POSITIVE (NEGATIVE)
== END 2022-10-24 23:42 | disposition home or self-care (01) ==
LOC: M ED 20:40
DX: R56.9 Unspecified convulsions (principal); G83.84 Todd's paralysis (postepileptic); I10 Essential (primary) hypertension; E78.5 Hyperlipidemia, unspecified; F32.A Depression, unspecified; F17.200 Nicotine dependence, unspecified, uncomplicated; Z86.73 Personal history of transient ischemic attack (TIA), and cerebral infarction without residual deficits; Z79.82 Long term (current) use of aspirin; Z79.899 Other long term (current) drug therapy; Z88.8 Allergy status to other drugs, medicaments and biological substances

== ENCOUNTER 2022-12-29 13:55 | Inpatient (IN) | payer BC ==
[2022-12-29] VITALS (9 sets, daily range): BP systolic 110–127; BP diastolic 72–77; TEMP 98.9; O2SAT 97–99
[2022-12-29 14:23] LABS: BASO # 0.1 10^3/uL (0.0-0.2); BASO % 0.5 % (0.0-1.0); EOS # 0.1 10^3/uL (0.0-0.5); EOS % 0.6 % (0.0-3.0); HEMATOCRIT 46.9 % (42.0-52.0); HEMOGLOBIN 15.3 g/dl (13.5-17.5); LYMPH # 2.7 10^3/uL (1.5-5.0); LYMPH % 13.6 % (24.0-44.0); MEAN CORPUSCULAR HEMOGLOBIN 30.4 pg (27.0-33.0); MEAN CORPUSCULAR HGB CONC 32.6 g/dl (32.0-36.5); MEAN CORPUSCULAR VOLUME 93.2 fl (80.0-96.0); MONO # 1.5 10^3/uL (0.0-0.8); MONO % 7.7 % (2.0-8.0); NEUTROPHILS % 76.2 % (36.0-66.0); PLATELET COUNT, AUTOMATED 340 10^3/uL (150-450); RED BLOOD COUNT 5.03 10^6/uL (4.30-6.10); WHITE BLOOD COUNT 19.7 10^3/uL (4.0-10.0)
[2022-12-29] MEDS ORDERED: ROCURONIUM BROMIDE 50MG/5ML VIAL IV ONE (14:35)
[2022-12-29] MEDS ORDERED: ETOMIDATE INJ 20MG/10ML VIAL IV ONE (14:35)
[2022-12-29] MEDS ORDERED: MIDAZOLAM 100MG/100ML-0.9%NACL 100 MG in IV 1 EA IV SCH (14:35)
[2022-12-29] MEDS ORDERED: MIDAZOLAM INJ 2MG/2ML VIAL IV ONE (14:35)
[2022-12-29] MEDS ORDERED: CEFEPIME HCL 2 GM in D5W MINI-BAG PLUS 50 ML IV ONE (14:35)
[2022-12-29 14:46] LABS: VALPROIC ACID (DEPAKOTE) 62.9 UG/ML (50.0-100.0)
[2022-12-29 14:48] LABS: BLOOD UREA NITROGEN 12 MG/DL (9-23); CALCIUM LEVEL 9.4 MG/DL (8.3-10.6); CARBON DIOXIDE LEVEL 15 MMOL/L (20-31); CHLORIDE LEVEL 106 MMOL/L (98-107); CREATININE FOR GFR 0.99 MG/DL (0.70-1.30); GLOMERULAR FILTRATION RATE > 60.0 (>49); GLUCOSE, FASTING 171 MG/DL (74-106); POTASSIUM SERUM 4.1 MMOL/L (3.5-5.1); SODIUM LEVEL 139 MMOL/L (136-145)
[2022-12-29] MEDS ORDERED: ACETAMINOPHEN 650MG SUPP PR ONE (14:50)
[2022-12-29 14:59] LABS: ABG BASE EXCESS -8.8 (-2.0-2.0); ABG HCO3 17.2 MMOL/L (22.0-26.0); ABG O2 SATURATION 91.8 % (95.0-99.0); ABG PARTIAL PRESSURE CO2 37.6 mmHg (35.0-45.0); ABG PARTIAL PRESSURE O2 66.8 mmHg (75.0-100.0); ABG STANDARD HCO3 17.4 MMOL/L. (22.0-26.0); ABG TOTAL CO2 18.3 MMOL/L (23.0-31.0); ABG pH (ARTERIAL) 7.278 UNITS (7.350-7.450)
[2022-12-29] MEDS ORDERED: VALPROATE SOD INJ 500 MG in D5W 50 ML IV ONE (15:00)
[2022-12-29] MEDS ORDERED: FENTANYL DRIP LOCK BOX KEY 1 EACH XX PRN (15:35)
[2022-12-29] MEDS ORDERED: fentaNYL CITRATE/NaCl 1,000 MCG in IV 1 EA IV SCH (15:35)
[2022-12-29 15:50] LABS: ABG BASE EXCESS -6.9 (-2.0-2.0); ABG HCO3 18.7 MMOL/L (22.0-26.0); ABG O2 SATURATION 99.3 % (95.0-99.0); ABG PARTIAL PRESSURE CO2 38.3 mmHg (35.0-45.0); ABG TOTAL CO2 19.9 MMOL/L (23.0-31.0); ABG pH (ARTERIAL) 7.307 UNITS (7.350-7.450)
[2022-12-29] MEDS: ROCURONIUM BROMIDE 50MG/5ML VIAL IV PRN ×2 (15:56→16:26)
[2022-12-29] MEDS ORDERED: MED REC IN PROGRESS XX SCH (16:55)
[2022-12-29] MEDS: MIDAZOLAM 100MG/100ML-0.9%NACL 100 MG in IV 1 EA IV SCH (17:15)
[2022-12-29 18:07] LABS: ABG BASE EXCESS -3.5 (-2.0-2.0); ABG HCO3 21.2 MMOL/L (22.0-26.0); ABG O2 SATURATION 99.7 % (95.0-99.0); ABG PARTIAL PRESSURE O2 272.7 mmHg (75.0-100.0); ABG STANDARD HCO3 21.7 MMOL/L. (22.0-26.0); ABG TOTAL CO2 22.3 MMOL/L (23.0-31.0); ABG pH (ARTERIAL) 7.375 UNITS (7.350-7.450)
[2022-12-29] MEDS ORDERED: MED REC CURRENTLY UNOBTAINABLE XX SCH (18:20)
[2022-12-29] MEDS ORDERED: OXCA300T14 PO (18:37)
[2022-12-29] MEDS ORDERED: HOME MED LIST COMPLETE! XX SCH (18:40)
[2022-12-29] MEDS ORDERED: MIDAZOLAM 5MG/ML 1ML VIAL IV ONE (19:00)
[2022-12-29] MEDS: ASPIRIN 81MG CHEW TABLET PO SCH (19:20)
[2022-12-29] MEDS: CHLORHEXIDINE GLUCONATE 0.12 % 15ML UDC (PERIDEX ORAL RINSE) MT SCH (20:51)
[2022-12-29] MEDS: ATORVASTATIN 20 MG TAB PO SCH (20:52)
[2022-12-29] MEDS: ENOXAPARIN 40MG/0.4ML SYRINGE (J1650 PER 10MG) SC SCH (20:53)
[2022-12-29] MEDS: PANTOPRAZOLE 40MG VIAL IV SCH (20:53)
[2022-12-29] MEDS: levOCARNitine ORAL SOLUTION 1,000MG/10ML (CARNITOR) PO SCH (20:53)
[2022-12-29] MEDS ORDERED: DIVALPROEX 500 MG TAB PO SCH (21:00)
[2022-12-29] MEDS ORDERED: OXcarbazepine 300 MG TAB PO SCH (21:00)
[2022-12-29] MEDS: D5W/LR 1,000 ML IV SCH (21:12)
[2022-12-29] MEDS: VALPROIC ACID 250MG/5ML SOL ORAL SYRINGE *DRAW UP EXACT DOSE PO SCH (22:54)
[2022-12-29] MEDS: carBAMazepine 100MG 5ML SUSP ORAL SYRINGE *DRAW UP EXACT DOSE PO SCH (22:54)
[2022-12-30] VITALS (37 sets, daily range): BP systolic 98–146; BP diastolic 58–94; TEMP 98.3–99.1; O2SAT 96–100
[2022-12-30] MEDS: MIDAZOLAM 100MG/100ML-0.9%NACL 100 MG in IV 1 EA IV SCH ×3 (00:04→20:15)
[2022-12-30] MEDS: propofoL 1,000 MG in IV 1 EA IV SCH ×3 (02:34→23:13)
[2022-12-30 04:57] LABS: ALBUMIN 3.3 G/DL (3.2-5.2); ALKALINE PHOSPHATASE 80 U/L (46-116); ALT/SGPT 17 U/L (7.0-40); AST/SGOT 20 U/L (<34); BILIRUBIN,TOTAL 0.4 MG/DL (0.3-1.2); BLOOD UREA NITROGEN 12 MG/DL (9-23); CALCIUM LEVEL 8.5 MG/DL (8.3-10.6); CARBON DIOXIDE LEVEL 26 MMOL/L (20-31); CHLORIDE LEVEL 105 MMOL/L (98-107); CREATININE FOR GFR 0.65 MG/DL (0.70-1.30); GLOMERULAR FILTRATION RATE > 60.0 (>49); GLUCOSE, FASTING 121 MG/DL (74-106); MAGNESIUM LEVEL 2.1 MG/DL (1.8-2.4); PHOSPHORUS LEVEL 4.4 MG/DL (2.4-5.1); POTASSIUM SERUM 4.4 MMOL/L (3.5-5.1); SODIUM LEVEL 138 MMOL/L (136-145); TOTAL PROTEIN 6.2 G/DL (5.7-8.2)
[2022-12-30] MEDS: D5W/LR 1,000 ML IV SCH ×3 (08:29→21:00)
[2022-12-30] MEDS: PARoxetine 20MG TABLET PO SCH (08:31)
[2022-12-30] MEDS ORDERED: DIVALPROEX 250MG TAB PO SCH (09:00)
[2022-12-30] MEDS: CHLORHEXIDINE GLUCONATE 0.12 % 15ML UDC (PERIDEX ORAL RINSE) MT SCH ×2 (09:34→20:59)
[2022-12-30] MEDS: carBAMazepine 100MG 5ML SUSP ORAL SYRINGE *DRAW UP EXACT DOSE PO SCH ×3 (09:34→21:16)
[2022-12-30] MEDS: VALPROIC ACID 250MG/5ML SOL ORAL SYRINGE *DRAW UP EXACT DOSE PO SCH (09:34)
[2022-12-30] MEDS: ASPIRIN 81MG CHEW TABLET PO SCH (09:34)
[2022-12-30] MEDS: levOCARNitine ORAL SOLUTION 1,000MG/10ML (CARNITOR) PO SCH ×2 (09:35→20:59)
[2022-12-30 11:55] LABS: VENOUS BASE EXCESS 0.7 (-2.0-2.0); VENOUS HCO3 23.9 MMOL/L (23.0-27.0); VENOUS O2 SATURATION 99.4 % (60.0-80.0); VENOUS PARTIAL PRESSURE CO2 34.3 mmHg (38.0-50.0); VENOUS PARTIAL PRESSURE O2 225.6 mmHg (30.0-50.0); VENOUS PH 7.461 UNITS (7.330-7.430); VENOUS STANDARD HCO3 25.1 MMOL/L
[2022-12-30] MEDS ORDERED: VALPROIC ACID 250MG/5ML SOL ORAL SYRINGE *DRAW UP EXACT DOSE PO SCH (13:00)
[2022-12-30] MEDS: VALPROATE SOD INJ 1,000 MG in D5W 50 ML IV SCH (20:58)
[2022-12-30] MEDS: ENOXAPARIN 40MG/0.4ML SYRINGE (J1650 PER 10MG) SC SCH (20:59)
[2022-12-30] MEDS: ATORVASTATIN 20 MG TAB PO SCH (20:59)
[2022-12-30] MEDS: PANTOPRAZOLE 40MG VIAL IV SCH (20:59)
[2022-12-30] MEDS ORDERED: VALPROIC ACID 250MG/5ML SOL ORAL SYRINGE *DRAW UP EXACT DOSE NG SCH (21:00)
[2022-12-31] VITALS (44 sets, daily range): BP systolic 68–126; BP diastolic 46–80; TEMP 97.9–99.2; O2SAT 94–99
[2022-12-31 04:19] LABS: BASO % 0.3 % (0.0-1.0); EOS % 0.3 % (0.0-3.0); HEMATOCRIT 41.3 % (42.0-52.0); HEMOGLOBIN 13.5 g/dl (13.5-17.5); LYMPH # 2.2 10^3/uL (1.5-5.0); MEAN CORPUSCULAR HEMOGLOBIN 30.2 pg (27.0-33.0); MEAN CORPUSCULAR HGB CONC 32.7 g/dl (32.0-36.5); MEAN CORPUSCULAR VOLUME 92.4 fl (80.0-96.0); MONO # 1.3 10^3/uL (0.0-0.8); MONO % 10.7 % (2.0-8.0); NEUTROPHILS # 8.4 10^3/uL (1.5-8.5); NEUTROPHILS % 70.4 % (36.0-66.0); PLATELET COUNT, AUTOMATED 242 10^3/uL (150-450); RED BLOOD COUNT 4.47 10^6/uL (4.30-6.10)
[2022-12-31 04:44] LABS: ALBUMIN 2.8 G/DL (3.2-5.2); ALKALINE PHOSPHATASE 71 U/L (46-116); ALT/SGPT 14 U/L (7.0-40); AST/SGOT 14 U/L (<34); BILIRUBIN,TOTAL 0.3 MG/DL (0.3-1.2); BLOOD UREA NITROGEN 7 MG/DL (9-23); CALCIUM LEVEL 8.6 MG/DL (8.3-10.6); CARBON DIOXIDE LEVEL 28 MMOL/L (20-31); CHLORIDE LEVEL 104 MMOL/L (98-107); CREATININE FOR GFR 0.58 MG/DL (0.70-1.30); GLOMERULAR FILTRATION RATE > 60.0 (>49); GLUCOSE, FASTING 149 MG/DL (74-106); SODIUM LEVEL 139 MMOL/L (136-145); TOTAL PROTEIN 5.5 G/DL (5.7-8.2)
[2022-12-31] MEDS: MIDAZOLAM 100MG/100ML-0.9%NACL 100 MG in IV 1 EA IV SCH (06:18)
[2022-12-31] MEDS: CHLORHEXIDINE GLUCONATE 0.12 % 15ML UDC (PERIDEX ORAL RINSE) MT SCH ×2 (08:43→20:36)
[2022-12-31] MEDS: ASPIRIN 81MG CHEW TABLET PO SCH (08:43)
[2022-12-31] MEDS: PARoxetine 20MG TABLET PO SCH (08:44)
[2022-12-31] MEDS: carBAMazepine 100MG 5ML SUSP ORAL SYRINGE *DRAW UP EXACT DOSE PO SCH ×3 (08:45→20:37)
[2022-12-31] MEDS: levOCARNitine ORAL SOLUTION 1,000MG/10ML (CARNITOR) PO SCH ×2 (08:45→20:37)
[2022-12-31] MEDS: D5W/LR 1,000 ML IV SCH (08:45)
[2022-12-31] MEDS: VALPROATE SOD INJ 750 MG in D5W 50 ML IV SCH (08:50)
[2022-12-31] MEDS: propofoL 1,000 MG in IV 1 EA IV SCH (11:11)
[2022-12-31] MEDS ORDERED: dexmedeTOMIDine (4MCG/ML)200MCG/50ML BTL (PRECEDEX) As Ordered ONE (12:04)
[2022-12-31] MEDS: dexmedeTOMidine 200 MCG in IV 1 EA IV SCH ×5 (12:26→22:55)
[2022-12-31] MEDS: MIDAZOLAM INJ 2MG/2ML VIAL IV PRN ×2 (15:49→18:29)
[2022-12-31] MEDS: PANTOPRAZOLE 40MG VIAL IV SCH (20:36)
[2022-12-31] MEDS: ENOXAPARIN 40MG/0.4ML SYRINGE (J1650 PER 10MG) SC SCH (20:37)
[2022-12-31] MEDS: VALPROATE SOD INJ 1,000 MG in D5W 50 ML IV SCH (20:37)
[2022-12-31] MEDS: ATORVASTATIN 20 MG TAB PO SCH (20:38)
[2022-12-31] MEDS ORDERED: NS 500 ML IV ONE (20:55)
[2022-12-31] MEDS ORDERED: fentaNYL 100 MCG/2 ML INJECTION IV ONE (21:00)
[2022-12-31] MEDS ORDERED: MIDAZOLAM 5MG/ML 1ML VIAL IV ONE (21:00)
[2022-12-31] MEDS ORDERED: NS 1,000 ML IV ONE (23:30)
[2023-01-01] VITALS (36 sets, daily range): BP systolic 75–151; BP diastolic 52–80; TEMP 98.2–100.4; O2SAT 93–99
[2023-01-01] MEDS ORDERED: NS 1,000 ML IV ONE (01:05)
[2023-01-01] MEDS: dexmedeTOMidine 200 MCG in IV 1 EA IV SCH ×4 (01:46→08:35)
[2023-01-01] MEDS: MIDAZOLAM INJ 2MG/2ML VIAL IV PRN ×2 (02:26→04:54)
[2023-01-01 05:04] LABS: HEMATOCRIT 32.8 % (42.0-52.0); MEAN CORPUSCULAR HEMOGLOBIN 30.9 pg (27.0-33.0); MEAN CORPUSCULAR HGB CONC 32.9 g/dl (32.0-36.5); MEAN CORPUSCULAR VOLUME 93.7 fl (80.0-96.0); PLATELET COUNT, AUTOMATED 183 10^3/uL (150-450); WHITE BLOOD COUNT 10.1 10^3/uL (4.0-10.0)
[2023-01-01 05:06] LABS: HEMOGLOBIN 10.8 g/dl (13.5-17.5)
[2023-01-01 05:09] LABS: ALBUMIN 2.4 G/DL (3.2-5.2); ALKALINE PHOSPHATASE 62 U/L (46-116); ALT/SGPT 12 U/L (7.0-40); AST/SGOT 9 U/L (<34); BILIRUBIN,TOTAL 0.4 MG/DL (0.3-1.2); BLOOD UREA NITROGEN 8 MG/DL (9-23); CALCIUM LEVEL 7.8 MG/DL (8.3-10.6); CARBON DIOXIDE LEVEL 25 MMOL/L (20-31); CHLORIDE LEVEL 108 MMOL/L (98-107); GLOMERULAR FILTRATION RATE > 60.0 (>49); GLUCOSE, FASTING 123 MG/DL (74-106); POTASSIUM SERUM 4.2 MMOL/L (3.5-5.1); SODIUM LEVEL 143 MMOL/L (136-145); TOTAL PROTEIN 4.8 G/DL (5.7-8.2)
[2023-01-01] MEDS: CHLORHEXIDINE GLUCONATE 0.12 % 15ML UDC (PERIDEX ORAL RINSE) MT SCH ×2 (08:25→20:16)
[2023-01-01] MEDS: levOCARNitine ORAL SOLUTION 1,000MG/10ML (CARNITOR) PO SCH ×2 (08:26→20:23)
[2023-01-01] MEDS: ASPIRIN 81MG CHEW TABLET PO SCH (08:26)
[2023-01-01] MEDS: PARoxetine 20MG TABLET PO SCH (08:34)
[2023-01-01] MEDS: carBAMazepine 100MG 5ML SUSP ORAL SYRINGE *DRAW UP EXACT DOSE PO SCH (08:39)
[2023-01-01] MEDS: VALPROATE SOD INJ 750 MG in D5W 50 ML IV SCH (09:52)
[2023-01-01] MEDS: CIPROFLOXACIN 0.3% OPHTH SOLN 2.5ML OD SCH ×2 (13:22→17:41)
[2023-01-01] MEDS: OXcarbazepine 300 MG TAB PO SCH (17:41)
[2023-01-01] MEDS: DIVALPROEX 500 MG TAB PO SCH (20:22)
[2023-01-01] MEDS: ENOXAPARIN 40MG/0.4ML SYRINGE (J1650 PER 10MG) SC SCH (20:22)
[2023-01-01] MEDS: ATORVASTATIN 20 MG TAB PO SCH (20:23)
[2023-01-01] MEDS: PANTOPRAZOLE 40MG VIAL IV SCH (20:23)
[2023-01-02] VITALS (15 sets, daily range): BP systolic 116–157; BP diastolic 64–90; TEMP 99.3–99.7; O2SAT 94–98
[2023-01-02] MEDS: CIPROFLOXACIN 0.3% OPHTH SOLN 2.5ML OD SCH ×4 (00:03→18:52)
[2023-01-02] MEDS: OXcarbazepine 300 MG TAB PO SCH ×2 (06:46→18:55)
[2023-01-02 06:55] LABS: ALBUMIN 2.6 G/DL (3.2-5.2); ALKALINE PHOSPHATASE 73 U/L (46-116); ALT/SGPT 14 U/L (7.0-40); AST/SGOT 14 U/L (<34); BILIRUBIN,TOTAL 0.5 MG/DL (0.3-1.2); BLOOD UREA NITROGEN 7 MG/DL (9-23); CALCIUM LEVEL 8.2 MG/DL (8.3-10.6); CARBON DIOXIDE LEVEL 28 MMOL/L (20-31); CHLORIDE LEVEL 104 MMOL/L (98-107); GLOMERULAR FILTRATION RATE > 60.0 (>49); GLUCOSE, FASTING 84 MG/DL (74-106); POTASSIUM SERUM 3.6 MMOL/L (3.5-5.1); SODIUM LEVEL 141 MMOL/L (136-145); TOTAL PROTEIN 5.2 G/DL (5.7-8.2)
[2023-01-02] MEDS: ASPIRIN 81MG CHEW TABLET PO SCH (08:46)
[2023-01-02] MEDS: DIVALPROEX 250MG TAB PO SCH (08:46)
[2023-01-02] MEDS: PARoxetine 20MG TABLET PO SCH (08:46)
[2023-01-02] MEDS: levOCARNitine ORAL SOLUTION 1,000MG/10ML (CARNITOR) PO SCH ×2 (08:47→20:15)
[2023-01-02] MEDS: amLODIPine 5 MG TAB PO SCH (08:47)
[2023-01-02] MEDS: AUGMENTIN 875 MG TAB PO SCH ×2 (16:13→20:15)
[2023-01-02] MEDS: PANTOPRAZOLE 40MG VIAL IV SCH (20:14)
[2023-01-02] MEDS: ATORVASTATIN 20 MG TAB PO SCH (20:14)
[2023-01-02] MEDS: ENOXAPARIN 40MG/0.4ML SYRINGE (J1650 PER 10MG) SC SCH (20:15)
[2023-01-02] MEDS: DIVALPROEX 500 MG TAB PO SCH (20:19)
[2023-01-03] MEDS: CIPROFLOXACIN 0.3% OPHTH SOLN 2.5ML OD SCH ×5 (00:15→23:24)
[2023-01-03] MEDS: OXcarbazepine 300 MG TAB PO SCH ×2 (05:10→17:50)
[2023-01-03 05:48] VITALS: BP 140/80; TEMP 98.9; O2SAT 100
[2023-01-03 06:21] LABS: BASO # 0.1 10^3/uL (0.0-0.2); BASO % 0.8 % (0.0-1.0); EOS # 0.2 10^3/uL (0.0-0.5); HEMOGLOBIN 11.8 g/dl (13.5-17.5); LYMPH # 2.6 10^3/uL (1.5-5.0); LYMPH % 31.1 % (24.0-44.0); MEAN CORPUSCULAR HEMOGLOBIN 30.6 pg (27.0-33.0); MEAN CORPUSCULAR HGB CONC 33.7 g/dl (32.0-36.5); MEAN CORPUSCULAR VOLUME 90.7 fl (80.0-96.0); MONO % 12.4 % (2.0-8.0); NEUTROPHILS # 4.4 10^3/uL (1.5-8.5); NEUTROPHILS % 53.2 % (36.0-66.0); PLATELET COUNT, AUTOMATED 255 10^3/uL (150-450); RED BLOOD COUNT 3.86 10^6/uL (4.30-6.10); WHITE BLOOD COUNT 8.3 10^3/uL (4.0-10.0)
[2023-01-03 06:48] LABS: ALBUMIN 2.6 G/DL (3.2-5.2); ALKALINE PHOSPHATASE 84 U/L (46-116); ALT/SGPT 15 U/L (7.0-40); AST/SGOT 14 U/L (<34); BILIRUBIN,TOTAL 0.5 MG/DL (0.3-1.2); BLOOD UREA NITROGEN 12 MG/DL (9-23); CALCIUM LEVEL 8.5 MG/DL (8.3-10.6); CARBON DIOXIDE LEVEL 26 MMOL/L (20-31); CHLORIDE LEVEL 105 MMOL/L (98-107); CREATININE FOR GFR 0.61 MG/DL (0.70-1.30); GLOMERULAR FILTRATION RATE > 60.0 (>49); GLUCOSE, FASTING 89 MG/DL (74-106); POTASSIUM SERUM 3.7 MMOL/L (3.5-5.1); SODIUM LEVEL 142 MMOL/L (136-145); TOTAL PROTEIN 5.4 G/DL (5.7-8.2)
[2023-01-03] MEDS ORDERED: IBUPROFEN 400MG TAB PO ONE (08:50)
[2023-01-03] MEDS: DIVALPROEX 250MG TAB PO SCH (09:22)
[2023-01-03] MEDS: amLODIPine 5 MG TAB PO SCH (09:23)
[2023-01-03] MEDS: PARoxetine 20MG TABLET PO SCH (09:23)
[2023-01-03] MEDS: ASPIRIN 81MG CHEW TABLET PO SCH (09:23)
[2023-01-03] MEDS: AUGMENTIN 875 MG TAB PO SCH ×2 (09:23→20:03)
[2023-01-03] MEDS: levOCARNitine ORAL SOLUTION 1,000MG/10ML (CARNITOR) PO SCH ×2 (09:24→20:05)
[2023-01-03 14:00] VITALS: BP 127/77; TEMP 98.1; O2SAT 97
[2023-01-03 19:55] VITALS: BP 130/76; TEMP 98.4; O2SAT 97
[2023-01-03] MEDS: ATORVASTATIN 20 MG TAB PO SCH (20:04)
[2023-01-03] MEDS: DIVALPROEX 500 MG TAB PO SCH (20:04)
[2023-01-03] MEDS: PANTOPRAZOLE 40MG VIAL IV SCH (20:04)
[2023-01-03] MEDS: ENOXAPARIN 40MG/0.4ML SYRINGE (J1650 PER 10MG) SC SCH (20:05)
[2023-01-04] MEDS: CIPROFLOXACIN 0.3% OPHTH SOLN 2.5ML OD SCH ×2 (04:58→14:03)
[2023-01-04 05:56] VITALS: BP 137/86; TEMP 98.1; O2SAT 94
[2023-01-04] MEDS ORDERED: OXcarbazepine 300 MG TAB PO SCH (09:00)
[2023-01-04] MEDS: levOCARNitine ORAL SOLUTION 1,000MG/10ML (CARNITOR) PO SCH (09:37)
[2023-01-04] MEDS: DIVALPROEX 250MG TAB PO SCH (09:38)
[2023-01-04] MEDS: AUGMENTIN 875 MG TAB PO SCH (09:38)
[2023-01-04] MEDS: PARoxetine 20MG TABLET PO SCH (09:38)
[2023-01-04] MEDS: ASPIRIN 81MG CHEW TABLET PO SCH (09:38)
[2023-01-04 09:39] VITALS: BP 137/86
[2023-01-04] MEDS: amLODIPine 5 MG TAB PO SCH (09:39)
[2023-01-04] MEDS ORDERED: CLOB10TA15 PO (11:57)
[2023-01-04] MEDS ORDERED: CIPR0.3S37 OD (11:57)
[2023-01-04] MEDS ORDERED: DEPA1TAB3 PO (11:57)
[2023-01-04] MEDS ORDERED: OXCA300T14 PO (11:57)
[2023-01-04] MEDS ORDERED: AMOX875T2 PO (11:57)
[2023-01-04 14:00] VITALS: TEMP 97.7; O2SAT 97
== END 2023-01-04 15:15 | disposition home or self-care (01) | DRG 133 ==
LOC: M ED 13:55 → M ED INP 17:15 → M ICU 18:38 → M MS5PR 01-02 22:10
PROVIDERS: ADMIT Internal Medicine Pulmonary Disease; ATTEND Internal Medicine
PROC: 0BH17EZ Insertion of Endotracheal Airway into Trachea, Via Natural or Artificial Opening (ICD-10-PCS; principal; 2022-12-29)
PROC: 5A1945Z Respiratory Ventilation, 24-96 Consecutive Hours (ICD-10-PCS; 2022-12-29)
DX: J96.00 Acute respiratory failure, unspecified whether with hypoxia or hypercapnia (principal); E87.21 Acute metabolic acidosis; I69.351 Hemiplegia and hemiparesis following cerebral infarction affecting right dominant side; G40.901 Epilepsy, unspecified, not intractable, with status epilepticus; I10 Essential (primary) hypertension; F32.A Depression, unspecified; E78.5 Hyperlipidemia, unspecified; H10.9 Unspecified conjunctivitis; J32.9 Chronic sinusitis, unspecified; F17.210 Nicotine dependence, cigarettes, uncomplicated; Z79.82 Long term (current) use of aspirin; Z79.899 Other long term (current) drug therapy; Z88.8 Allergy status to other drugs, medicaments and biological substances; Z20.822 Contact with and (suspected) exposure to COVID-19; Z83.3 Family history of diabetes mellitus; Z96.653 Presence of artificial knee joint, bilateral

== ENCOUNTER → 2023-01-12 | Outpatient (CLI) | payer BC ==
[~2023-01-12] MED LIST changes: +CIPR0.3S37 OD; +CLOB10TA15 PO
[2023-01-12 13:37] LABS: BASO # 0.1 10^3/uL (0.0-0.2); BASO % 1.1 % (0.0-1.0); EOS # 0.3 10^3/uL (0.0-0.5); EOS % 3.3 % (0.0-3.0); HEMATOCRIT 40.3 % (42.0-52.0); HEMOGLOBIN 13.3 g/dl (13.5-17.5); LYMPH # 3.1 10^3/uL (1.5-5.0); LYMPH % 38.6 % (24.0-44.0); MEAN CORPUSCULAR HEMOGLOBIN 30.6 pg (27.0-33.0); MEAN CORPUSCULAR VOLUME 92.9 fl (80.0-96.0); MONO # 0.6 10^3/uL (0.0-0.8); MONO % 7.4 % (2.0-8.0); NEUTROPHILS # 3.8 10^3/uL (1.5-8.5); PLATELET COUNT, AUTOMATED 313 10^3/uL (150-450); RED BLOOD COUNT 4.34 10^6/uL (4.30-6.10)
[2023-01-12 13:59] LABS: VALPROIC ACID (DEPAKOTE) 114.5 UG/ML (50.0-100.0)
[2023-01-12 14:01] LABS: ALBUMIN 3.1 G/DL (3.2-5.2); ALKALINE PHOSPHATASE 77 U/L (46-116); ALT/SGPT 16 U/L (7.0-40); AST/SGOT < 8 U/L (<34); BILIRUBIN,TOTAL 0.2 MG/DL (0.3-1.2); BLOOD UREA NITROGEN 13 MG/DL (9-23); CALCIUM LEVEL 8.7 MG/DL (8.3-10.6); CARBON DIOXIDE LEVEL 26 MMOL/L (20-31); CHLORIDE LEVEL 108 MMOL/L (98-107); CPK CREATINE PHOSPHOKINASE 64 U/L (46-171); CREATININE FOR GFR 0.56 MG/DL (0.70-1.30); GLOMERULAR FILTRATION RATE > 60.0 (>49); GLUCOSE, FASTING 125 MG/DL (74-106); POTASSIUM SERUM 4.2 MMOL/L (3.5-5.1); SODIUM LEVEL 142 MMOL/L (136-145); TOTAL PROTEIN 5.8 G/DL (5.7-8.2)
[2023-01-12 14:03] LABS: VITAMIN B12 LEVEL 654 PG/ML (211-911)
== END ==
LOC: M LAB 12:57
PROVIDERS: ATTEND Psychiatry & Neurology Neurology
DX: G40.409 Other generalized epilepsy and epileptic syndromes, not intractable, without status epilepticus (principal)

== ENCOUNTER → 2023-04-24 | Outpatient (CLI) | payer BC ==
[2023-04-24 11:30] LABS: BASO # 0.1 10^3/uL (0.0-0.2); BASO % 0.7 % (0.0-1.0); EOS # 0.1 10^3/uL (0.0-0.5); EOS % 1.8 % (0.0-3.0); HEMATOCRIT 45.8 % (42.0-52.0); HEMOGLOBIN 15.1 g/dl (13.5-17.5); LYMPH # 2.4 10^3/uL (1.5-5.0); LYMPH % 34.2 % (24.0-44.0); MEAN CORPUSCULAR HEMOGLOBIN 30.6 pg (27.0-33.0); MEAN CORPUSCULAR VOLUME 92.7 fl (80.0-96.0); MONO # 0.6 10^3/uL (0.0-0.8); MONO % 9.1 % (2.0-8.0); NEUTROPHILS # 3.8 10^3/uL (1.5-8.5); NEUTROPHILS % 53.8 % (36.0-66.0); PLATELET COUNT, AUTOMATED 253 10^3/uL (150-450); RED BLOOD COUNT 4.94 10^6/uL (4.30-6.10)
[2023-04-24 12:05] LABS: VALPROIC ACID (DEPAKOTE) 81.9 UG/ML (50.0-100.0)
[2023-04-24 12:06] LABS: ALBUMIN 3.5 G/DL (3.2-5.2); ALKALINE PHOSPHATASE 79 U/L (46-116); ALT/SGPT 13 U/L (7.0-40); AST/SGOT 9 U/L (<34); BILIRUBIN,TOTAL 0.3 MG/DL (0.3-1.2); BLOOD UREA NITROGEN 14 MG/DL (9-23); CALCIUM LEVEL 9.1 MG/DL (8.3-10.6); CARBON DIOXIDE LEVEL 24 MMOL/L (20-31); CHLORIDE LEVEL 105 MMOL/L (98-107); CREATININE FOR GFR 0.73 MG/DL (0.70-1.30); GLOMERULAR FILTRATION RATE > 60.0 (>49); GLUCOSE, FASTING 94 MG/DL (74-106); POTASSIUM SERUM 4.3 MMOL/L (3.5-5.1); SODIUM LEVEL 138 MMOL/L (136-145); TOTAL PROTEIN 6.4 G/DL (5.7-8.2)
== END ==
LOC: M LAB 10:48
PROVIDERS: ATTEND Psychiatry & Neurology Neurology
DX: R56.9 Unspecified convulsions (principal); Z79.899 Other long term (current) drug therapy

== ENCOUNTER → 2023-06-05 | Outpatient (CLI) | payer BC | LOC: M LAB 10:52 | PROVIDERS: ATTEND Psychiatry & Neurology Neurology | DX: G40.109 Localization-related (focal) (partial) symptomatic epilepsy and epileptic syndromes with simple partial seizures, not intractable, without status epilepticus (principal) | CPT/HCPCS: 36415; 80165; 80183; 80203; 82140; G0480 ==

== ENCOUNTER → 2023-06-05 | Outpatient (CLI) | payer BC ==
[2023-06-05 12:29] LABS: APPEARANCE, URINE CLEAR (CLEAR); BACTERIA, URINE AUTO NEGATIVE (NEGATIVE); BILIRUBIN, URINE AUTO NEGATIVE (NEGATIVE); BLOOD, URINE BLOOD 1+ (NEGATIVE); COLOR, URINE YELLOW (YELLOW); GLUCOSE, URINE (UA) AUTO NEGATIVE (NEGATIVE); KETONE, URINE AUTO TRACE mg/dL (NEGATIVE); LEUKOCYTE ESTERASE, URINE AUTO NEGATIVE (NEGATIVE); MUCUS, URINE MODERATE (NEGATIVE); NITRITE, URINE AUTO NEGATIVE (NEGATIVE); PROTEIN, URINE AUTO NEGATIVE (NEGATIVE); RBC, URINE AUTO 3 /HPF (0-3); RENAL EPITHELIAL CELLS 6 /HPF; SPECIFIC GRAVITY URINE AUTO 1.029 (1.002-1.035); SQUAMOUS EPITHELIAL CELL UR AU 0 /HPF (0-6); WBC, URINE AUTO 1 /HPF (0-3)
[2023-06-05 12:44] LABS: CHOLESTEROL RISK RATIO 2.28 (<5); HDL CHOLESTEROL 55.9 MG/DL (>40); LDL CHOLESTEROL 41.3 MG/DL (<100); NON-HDL-C 72.1 MG/DL; PSA SCREENING 0.43 NG/ML (< 4.00)
== END ==
LOC: M LAB 10:51
PROVIDERS: ATTEND Nurse Practitioner Family
DX: E78.2 Mixed hyperlipidemia (principal); N39.46 Mixed incontinence
CPT/HCPCS: 36415; 80061; 81001; 87086; G0103

== ENCOUNTER → 2023-07-12 | Outpatient (REF) | payer BC | LOC: M SFHCDERM 16:06 | PROVIDERS: ATTEND Physician Assistant | DX: L02.91 Cutaneous abscess, unspecified (principal); B95.7 Other staphylococcus as the cause of diseases classified elsewhere ==

== ENCOUNTER → 2023-08-02 | Outpatient (REF) | payer BC | LOC: M SFHCDERM 12:44 | PROVIDERS: ATTEND Physician Assistant | DX: L02.91 Cutaneous abscess, unspecified (principal) ==

== ENCOUNTER 2023-08-08 09:51 | Inpatient (IN) | payer MEDICARE, BC ==
[~2023-08-08 09:51] MED LIST changes: -CLOB10TA15 PO; +CLOB10TA3 PO
[2023-08-08 10:50] LABS: BASO % 0.6 % (0.0-1.0); EOS # 0.1 10^3/uL (0.0-0.5); EOS % 1.2 % (0.0-3.0); HEMATOCRIT 43.2 % (42.0-52.0); HEMOGLOBIN 14.3 g/dl (13.5-17.5); LYMPH # 1.7 10^3/uL (1.5-5.0); MEAN CORPUSCULAR HEMOGLOBIN 30.6 pg (27.0-33.0); MEAN CORPUSCULAR HGB CONC 33.1 g/dl (32.0-36.5); MEAN CORPUSCULAR VOLUME 92.5 fl (80.0-96.0); MONO # 0.7 10^3/uL (0.0-0.8); MONO % 9.8 % (2.0-8.0); NEUTROPHILS # 4.4 10^3/uL (1.5-8.5); NEUTROPHILS % 63.7 % (36.0-66.0); PLATELET COUNT, AUTOMATED 249 10^3/uL (150-450); RED BLOOD COUNT 4.67 10^6/uL (4.30-6.10)
[2023-08-08 11:14] LABS: VALPROIC ACID (DEPAKOTE) 57.1 UG/ML (50.0-100.0)
[2023-08-08 11:16] LABS: ALBUMIN 3.3 G/DL (3.2-5.2); ALKALINE PHOSPHATASE 87 U/L (46-116); ALT/SGPT < 9 U/L (7.0-40); AST/SGOT 13 U/L (<34); BILIRUBIN,DIRECT 0.2 MG/DL (<0.4); BILIRUBIN,TOTAL 0.3 MG/DL (0.3-1.2); BLOOD UREA NITROGEN 14 MG/DL (9-23); CALCIUM LEVEL 8.9 MG/DL (8.3-10.6); CARBON DIOXIDE LEVEL 20 MMOL/L (20-31); CHLORIDE LEVEL 110 MMOL/L (98-107); CREATININE FOR GFR 0.68 MG/DL (0.70-1.30); GLOMERULAR FILTRATION RATE > 60.0 (>49); GLUCOSE, FASTING 112 MG/DL (74-106); MAGNESIUM LEVEL 2.1 MG/DL (1.8-2.4); POTASSIUM SERUM 4.4 MMOL/L (3.5-5.1); SODIUM LEVEL 138 MMOL/L (136-145); TOTAL PROTEIN 5.9 G/DL (5.7-8.2)
[2023-08-08] MEDS: DIVALPROEX 500 MG TAB PO ONE (11:54)
[2023-08-08] MEDS: OXcarbazepine 150 MG TAB PO ONE (11:55)
[2023-08-08] MEDS: NS 1,000 ML IV ONE (13:31)
[2023-08-08] MEDS: LACTULOSE 20GM/30ML SYRUP UDC PO ONE (14:09)
[2023-08-08] MEDS: LACOSAMIDE 10MG/ML 20ML VIAL (VIMPAT) IV STA (14:09)
[2023-08-08] MEDS ORDERED: AMOX875T2 PO (15:00)
[2023-08-08] MEDS ORDERED: OXCA600T8 PO (15:00)
[2023-08-08] MEDS ORDERED: CLON0.5T2 PO (15:04)
[2023-08-08] MEDS ORDERED: MIDA5SPR NARES (15:04)
[2023-08-08] MEDS ORDERED: ZONI100C67 PO (15:07)
[2023-08-08] MEDS ORDERED: MOM 30ML SUSPENSION UDC PO PRN (15:35)
[2023-08-08] MEDS ORDERED: ACETAMINOPHEN TAB 650MG DOSE (2X325MG) PO PRN (15:35)
[2023-08-08] MEDS: LACTULOSE 20GM/30ML SYRUP UDC PO SCH (16:14)
[2023-08-08 21:00] VITALS: BP 134/77; TEMP 97.7; O2SAT 98
[2023-08-08] MEDS: LACOSAMIDE 50 MG TAB (VIMPAT) PO SCH (21:42)
[2023-08-08] MEDS: DOCUSATE SODIUM 100MG CAPSULE PO SCH (21:42)
[2023-08-08] MEDS: AUGMENTIN 875 MG TAB PO SCH (21:42)
[2023-08-08] MEDS: ATORVASTATIN 20 MG TAB PO SCH (21:42)
[2023-08-08] MEDS: ZONISAMIDE 100 MG CAP (ZONEGRAN) PO SCH (21:43)
[2023-08-08] MEDS: OXcarbazepine 300 MG TAB PO SCH (22:41)
[2023-08-08 23:17] VITALS: BP 108/66; TEMP 98.1; O2SAT 96
[2023-08-09 03:50] VITALS: BP 124/86; TEMP 99.8; O2SAT 96
[2023-08-09 06:21] LABS: HEMATOCRIT 38.5 % (42.0-52.0); MEAN CORPUSCULAR HGB CONC 33.8 g/dl (32.0-36.5); MEAN CORPUSCULAR VOLUME 91.9 fl (80.0-96.0); PLATELET COUNT, AUTOMATED 246 10^3/uL (150-450); RED BLOOD COUNT 4.19 10^6/uL (4.30-6.10); WHITE BLOOD COUNT 8.5 10^3/uL (4.0-10.0)
[2023-08-09 07:08] LABS: BLOOD UREA NITROGEN 8 MG/DL (9-23); CALCIUM LEVEL 8.5 MG/DL (8.3-10.6); CARBON DIOXIDE LEVEL 19 MMOL/L (20-31); CHLORIDE LEVEL 109 MMOL/L (98-107); CREATININE FOR GFR 0.66 MG/DL (0.70-1.30); GLOMERULAR FILTRATION RATE > 60.0 (>49); GLUCOSE, FASTING 91 MG/DL (74-106); POTASSIUM SERUM 3.9 MMOL/L (3.5-5.1); SODIUM LEVEL 135 MMOL/L (136-145)
[2023-08-09 07:51] VITALS: BP 122/73; TEMP 98.4; O2SAT 96
[2023-08-09] MEDS: ASPIRIN 81MG ENTERIC TABLET PO SCH (09:08)
[2023-08-09] MEDS: PARoxetine 20MG TABLET PO SCH (09:08)
[2023-08-09] MEDS: ENOXAPARIN 40MG/0.4ML SYRINGE (J1650 PER 10MG) SC SCH (09:08)
[2023-08-09 09:09] VITALS: BP 122/73
[2023-08-09] MEDS: amLODIPine 5 MG TAB PO SCH (09:09)
[2023-08-09] MEDS ORDERED: ZONI100C67 PO (10:22)
[2023-08-09] MEDS ORDERED: VIMP100T PO (10:22)
== END 2023-08-09 12:36 | disposition home or self-care (01) | DRG 101 ==
LOC: M ED 09:51 → EDBD 09:51 → M ED INP 15:31 → M PCU 20:54
PROVIDERS: ADMIT Student in an Organized Health Care Education/Training Program; ATTEND Student in an Organized Health Care Education/Training Program
DX: G40.409 Other generalized epilepsy and epileptic syndromes, not intractable, without status epilepticus (principal); E72.20 Disorder of urea cycle metabolism, unspecified; L02.213 Cutaneous abscess of chest wall; I69.351 Hemiplegia and hemiparesis following cerebral infarction affecting right dominant side; I10 Essential (primary) hypertension; E78.5 Hyperlipidemia, unspecified; F32.A Depression, unspecified; Z95.5 Presence of coronary angioplasty implant and graft; Z96.653 Presence of artificial knee joint, bilateral; Z79.82 Long term (current) use of aspirin; Z79.899 Other long term (current) drug therapy; Z88.8 Allergy status to other drugs, medicaments and biological substances

== ENCOUNTER → 2023-08-15 | Outpatient (CLI) | payer MEDICARE, BC ==
[~2023-08-15] MED LIST changes: +CLON0.5T2 PO; +MIDA5SPR NARES; +OXCA600T8 PO; +ZONI100C67 PO
[2023-08-15 10:55] LABS: ALBUMIN 3.5 G/DL (3.2-5.2); ALKALINE PHOSPHATASE 119 U/L (46-116); ALT/SGPT 23 U/L (7.0-40); AST/SGOT 10 U/L (<34); BILIRUBIN,TOTAL 0.5 MG/DL (0.3-1.2); BLOOD UREA NITROGEN 8 MG/DL (9-23); CALCIUM LEVEL 8.8 MG/DL (8.3-10.6); CARBON DIOXIDE LEVEL 20 MMOL/L (20-31); CHLORIDE LEVEL 109 MMOL/L (98-107); CREATININE FOR GFR 0.63 MG/DL (0.70-1.30); GLOMERULAR FILTRATION RATE > 60.0 (>49); GLUCOSE, FASTING 104 MG/DL (74-106); POTASSIUM SERUM 4.2 MMOL/L (3.5-5.1); SODIUM LEVEL 136 MMOL/L (136-145); TOTAL PROTEIN 6.5 G/DL (5.7-8.2)
[2023-08-19 00:08] LABS: OXCARBAZEPINE 17 ug/mL (10-35)
== END ==
LOC: M LAB 09:30
PROVIDERS: ATTEND Student in an Organized Health Care Education/Training Program
DX: G40.109 Localization-related (focal) (partial) symptomatic epilepsy and epileptic syndromes with simple partial seizures, not intractable, without status epilepticus (principal)

== ENCOUNTER → 2023-08-31 | Outpatient (CLI) | payer MEDICARE, BC | LOC: M LAB 09:47 | PROVIDERS: ATTEND Psychiatry & Neurology Neurology | DX: E72.20 Disorder of urea cycle metabolism, unspecified (principal) ==

== ENCOUNTER → 2023-10-30 | Outpatient (CLI) | payer MEDICARE, BC ==
[~2023-10-30] MED LIST changes: +DOXY-440 PO; -DOXY-444 PO; +ONDA-282 PO; -ONDA4TAB6 PO
[2023-10-31 11:52] LABS: CARBAMAZEPINE (TEGRETOL) SO < 2.0 mg/L (4.0-12.0)
== END ==
LOC: M LAB 09:10
PROVIDERS: ATTEND Student in an Organized Health Care Education/Training Program
DX: G40.109 Localization-related (focal) (partial) symptomatic epilepsy and epileptic syndromes with simple partial seizures, not intractable, without status epilepticus (principal)

== ENCOUNTER 2024-02-09 07:00 | Day surgery (SDC) | payer MEDICARE, BC ==
[~2024-02-09] VITALS: Ht 177.8 cm; Wt 86.5 kg
[~2024-02-09 07:00] MED LIST changes: +NS 1,000 ML IV ONE
[2024-02-09] MEDS ORDERED: LIDOCAINE 2% MDV 20ML VIAL As Ordered ONE (08:10)
[2024-02-09] MEDS ORDERED: propofoL 200 MG/20 ML VIAL As Ordered ONE (08:10)
[2024-02-09] MEDS ORDERED: LIDOCAINE 2% 100MG/5ML SDV (FOR ANES.) As Ordered ONE (08:16)
[2024-02-09] MEDS ORDERED: ePHEDrine SULFATE 25 MG/5 ML(5MG/ML) SYRINGE As Ordered ONE (09:15)
[2024-02-09 09:37] VITALS: TEMP 97.7
[2024-02-09 09:50] VITALS: BP 116/66; O2SAT 98
== END 2024-02-09 09:58 | disposition home or self-care (01) ==
LOC: M OPP 07:00
PROVIDERS: ATTEND Surgery
DX: Z12.11 Encounter for screening for malignant neoplasm of colon (principal); Z86.0100 Personal history of colon polyps, unspecified; K64.0 First degree hemorrhoids; I25.10 Atherosclerotic heart disease of native coronary artery without angina pectoris; I10 Essential (primary) hypertension; E78.5 Hyperlipidemia, unspecified; M19.90 Unspecified osteoarthritis, unspecified site; F41.9 Anxiety disorder, unspecified; F32.A Depression, unspecified; F12.20 Cannabis dependence, uncomplicated; Z88.8 Allergy status to other drugs, medicaments and biological substances; Z79.82 Long term (current) use of aspirin; Z79.899 Other long term (current) drug therapy

== ENCOUNTER → 2024-04-25 | Outpatient (REF) | payer MEDICARE, BC ==
[~2024-04-25] MED LIST changes: -NS 1,000 ML IV ONE
== END ==
LOC: M SFHCWAGY 17:10
PROVIDERS: ATTEND Physician Assistant
DX: L02.91 Cutaneous abscess, unspecified (principal)

== ENCOUNTER → 2024-05-29 | Outpatient (REF) | payer MEDICARE, BC | LOC: M LAB REF 15:43 | PROVIDERS: ATTEND Surgery | DX: L72.3 Sebaceous cyst (principal) ==

== ENCOUNTER → 2024-05-31 | Outpatient (REF) | payer MEDICARE, BC ==
[2024-05-31 14:31] LABS: PSA SCREENING 0.33 NG/ML (< 4.00)
[2024-05-31 14:43] LABS: ALBUMIN 3.6 G/DL (3.2-5.2); ALKALINE PHOSPHATASE 195 U/L (40-129); ALT/SGPT 47 U/L (7.0-40); AST/SGOT 29 U/L (<34); BILIRUBIN,TOTAL 0.6 MG/DL (0.3-1.2); BLOOD UREA NITROGEN 12 MG/DL (9-23); CALCIUM LEVEL 9.4 MG/DL (8.3-10.6); CARBON DIOXIDE LEVEL 20 MMOL/L (20-31); CHLORIDE LEVEL 106 MMOL/L (98-107); CHOLESTEROL LEVEL 142 MG/DL (<200); CHOLESTEROL RISK RATIO 2.52 (<5); CREATININE FOR GFR 0.67 MG/DL (0.70-1.30); GLOMERULAR FILTRATION RATE > 60.0 (>49); GLUCOSE, FASTING 112 MG/DL (74-106); HDL CHOLESTEROL 56.2 MG/DL (>40); LDL CHOLESTEROL 67.6 MG/DL (<100); NON-HDL-C 85.8 MG/DL; POTASSIUM SERUM 4.3 MMOL/L (3.5-5.1); SODIUM LEVEL 138 MMOL/L (136-145); TOTAL PROTEIN 7.1 G/DL (5.7-8.2); TRIGLYCERIDES LEVEL 91 MG/DL (<150)
== END ==
LOC: M LABDRWAD 13:19
PROVIDERS: ATTEND Nurse Practitioner Family
DX: Z00.00 Encounter for general adult medical examination without abnormal findings (principal); E78.2 Mixed hyperlipidemia; I10 Essential (primary) hypertension; Z12.5 Encounter for screening for malignant neoplasm of prostate; R56.9 Unspecified convulsions
CPT/HCPCS: 80053; 80061; 80183; 80203; 80235; G0103

== ENCOUNTER → 2024-05-31 | Outpatient (REF) | payer MEDICARE, BC | LOC: M LABDRWAD 13:17 | PROVIDERS: ATTEND Psychiatry & Neurology Neurology | DX: R56.9 Unspecified convulsions (principal) ==

== ENCOUNTER → 2024-06-05 | Outpatient (CLI) | payer MEDICARE, BC | LOC: M PLAIMG 10:33 | PROVIDERS: ATTEND Nurse Practitioner Family | DX: R05.9 Cough, unspecified (principal) ==

== ENCOUNTER 2024-08-15 15:19 | Emergency (ER) | payer MEDICARE, BC ==
[2024-08-15 15:30] VITALS: TEMP 98.5
[2024-08-15] MEDS ORDERED: MIDAZOLAM 5MG/ML 1ML VIAL PRN (15:40)
[2024-08-15] MEDS ORDERED: CLON0.5T17 PO (16:07)
[2024-08-15] MEDS ORDERED: VIMP100T PO (16:07)
[2024-08-15] MEDS: ONDANSETRON 4MG 2ML VIAL IV ONE (17:05)
[2024-08-15 18:00] LABS: ALBUMIN 3.9 G/DL (3.2-5.2); ALKALINE PHOSPHATASE 151 U/L (40-129); ALT/SGPT 25 U/L (7.0-40); AST/SGOT 28 U/L (<34); BILIRUBIN,DIRECT < 0.1 MG/DL (<0.4); BILIRUBIN,TOTAL 0.3 MG/DL (0.3-1.2); BLOOD UREA NITROGEN 13 MG/DL (9-23); CARBON DIOXIDE LEVEL 22 MMOL/L (20-31); CHLORIDE LEVEL 108 MMOL/L (98-107); CREATININE FOR GFR 0.71 MG/DL (0.70-1.30); GLOMERULAR FILTRATION RATE > 90.0 (>49); GLUCOSE, FASTING 108 MG/DL (74-106); MAGNESIUM LEVEL 2.2 MG/DL (1.8-2.4); POTASSIUM SERUM 5.3 MMOL/L (3.5-5.1); SODIUM LEVEL 140 MMOL/L (136-145)
[2024-08-15 18:15] VITALS: BP 123/59; O2SAT 97
== END 2024-08-15 18:44 | disposition left against medical advice (07) ==
LOC: M ED 15:19 → EDBD 15:19 → M ED 18:44
DX: G40.909 Epilepsy, unspecified, not intractable, without status epilepticus (principal); Z53.20 Procedure and treatment not carried out because of patient's decision for unspecified reasons; Z86.73 Personal history of transient ischemic attack (TIA), and cerebral infarction without residual deficits; I10 Essential (primary) hypertension; E78.5 Hyperlipidemia, unspecified; Z79.899 Other long term (current) drug therapy
CPT/HCPCS: 36415; 80048; 80076; 80183; 80203; 80235; 82140; 83605; 83735; 94760; 96374; 99284; J2405

== ENCOUNTER → 2024-12-27 | Outpatient (CLI) | payer MEDICARE, BC ==
[~2024-12-27] MED LIST changes: +CLON0.5T17 PO; -LACO150T PO; +LACO150T9 PO
== END ==
LOC: M RAD 15:04
PROVIDERS: ATTEND Nurse Practitioner Family
DX: I65.23 Occlusion and stenosis of bilateral carotid arteries (principal)

== ENCOUNTER → 2025-02-25 | Outpatient (CLI) | payer MEDICARE, BC ==
[2025-02-25 13:57] LABS: CALCIUM LEVEL 9.3 MG/DL (8.3-10.6); CARBON DIOXIDE LEVEL 23 MMOL/L (20-31); CHLORIDE LEVEL 107 MMOL/L (98-107); CREATININE FOR GFR 0.81 MG/DL (0.70-1.30); GLOMERULAR FILTRATION RATE > 90.0 (>49); POTASSIUM SERUM 4.7 MMOL/L (3.5-5.1); SODIUM LEVEL 143 MMOL/L (136-145)
[2025-02-28 20:11] LABS: OXCARBAZEPINE 17.3 mcg/mL (8.0-35.0)
[2025-03-01 03:47] LABS: ZONISAMIDE LEVEL 21.0 ug/mL (10-40)
== END ==
LOC: M LABDRWAD 10:13
PROVIDERS: ATTEND Psychiatry & Neurology Neurology
DX: R56.9 Unspecified convulsions (principal)